=== PATIENT | female | born 1940 | race Caucasian/White ===

== ENCOUNTER 2017-05-25 14:45 | Outpatient (RCR) | payer MEDICARE, BC ==
--- NOTE | 2017-04-30 16:50 | PT INITIAL EVALUATION ---
MEDICAL DIAGNOSIS: Right Glenohumeral Joint Instability, Right Rotator Cuff Tear TREATMENT DIAGNOSIS: Right Glenohumeral Joint Instability, Right Rotator Cuff Tear DATE OF ONSET: 04/30/17 SUBJECTIVE: Vera is a 76 year-old female representing to physical therapy following new orders and diagnosis for her R shoulder pain and frequent subluxation. Vera has been seen in the past concerning her hip pain, and with her diagnosis of cancer. Currently pt reports that her pain is pretty low in the shoulder rated at 3-4/10, but when her shoulder is out of place reaches up to a 8/10. Pain is increased with overhead reaching to get heavy objects, but comes and goes. Pt lives with her family and is dependent on their availability for transportation to and from PT sessions. REHAB PROBLEM LIST: Increased Pain Decreased ROM Decreased Strength Decreased Function Decreased ADL's PREVIOUS MEDICAL HISTORY: Hx of Parkinson's Disease, Hx of Breast CA, See EMR OCCUPATION: Retired OBJECTIVE: R Shoulder slightly anteriorly displaced Posture: Rounded shoulders posture with significant thoracic kyphosis. ROM: Shoulder AROM (R, L): Flexion: 123, 125, abd: 160, 150, ER: 85, 80, IR: T4 with pain on anterior shoulder, T12 Strength: MMT B Shoulders (R, L) all measures out of 5: Flexion: 5, 5 ext: 4, 5 , abd: 4, 5, ER: 4, 4, IR: 4+, 5 Palpation: Pt is tender to palpation on the anterior aspect of the GH joint as well as in the RTC musculature and tendon insertions. Pt also has a palpable nodule on the posterior aspect of rib 10 located approximately 1 inch from the spine. Nodule is hard and tender to touch with movable swelling surrounding. Pt reports that she doesn't know how long it has been there but did fall a while ago and possibly broke a rib. She reports pain occasionally wakes her up at night from the nodule. Sensation: Sensation intact to light touch in B UE Special Tests: Neer's (-), Empty can (+) for pain on R, IR Lift off (-), Anterior apprehension (+) on R. Mobility: Pt currently never leaves home without assistance from family members. Gait: Unsteady gait with slow bernadette and decreased foot clearance, frequent UE reaching for support and stability Other Objective Findings: Pt has difficulty dressing secondary to chest tightness and postural positioning. ASSESSMENT: Pt shows signs and symptoms consistent with R frequent anterior subluxation resulting in RTC pathology as well as shoulder instability. Physical therapy is indicated to address the above listed deficits to improve pt functional ability to perform ADL's. Short Term Goals In 3 weeks pt will have <1 episode per week of anterior shoulder subluxation with ADL's for decreased pain and improved function with ADL's. In 3 weeks pt will increase R shoulder ROM to equal to that of the contralateral limb for improved function with ADL's. In 6 weeks pt will increase R shoulder strength to equal to that of the contralateral limb for improved function with ADL's. In 6 weeks pt will have no episodes of subluxation for decreased pain and improved function with ADL's. Patient's Goals Decrease shoulder pain and improve function. PLAN: Patient to be seen for Manual Therapy/STM/MET Strengthening/condition Ice/Heat Range of Motion Spinal Stabilization Ultrasound Stretching Iontophoresis Neuromuscular Re-ed Electrical Stim Posture/Body mechanics Gait Trg/Balance Trg Biofeedback Home Exercise Program Mech./Manual Traction Therapeutic Activities 2x/Week for 6 Weeks If you have any questions, comments, or concerns about this report or plan, please contact me at . Than you, Fidelia Best, PT, DPT, CLT DEISY
[~2017-05-25 14:45] MED LIST: ANAS1TAB34 PO; ATOR20TA22 PO; BENA1TAB58 PO; CARB-127 PO; CEF300 PO; CHOL10005 PO; DEN120I SUBQ; DONE5TAB74 PO; FOLI-68 PO; IOPAMIDOL 76% 75 ML INFUS BTL 75 ML ONE; MEMA10TA3 PO; NAPR220C12 PO; NS 0.9% 50 ML VIAL 50 ML ONE; ONDA8TAB98 PO; OXYC-373 PO; OXYC-823 PO; POTA20TA10 PO; PRAM0.7512 PO; PROC10TA95 PO; TRAM-420 PO; [UNRECOGNIZED DRUG - CODE] PO
--- NOTE | 2017-05-26 15:34 | PT PLAN OF CARE ---
Physician: Nickolas Hamm MD Patient is being seen: 2x/Week Therapist: Fidelia Best, PT, DPT, CLT Medical Diagnosis: Right Glenohumeral Joint Instability, Right Rotator Cuff Tear Treatment Diagnosis: Right Glenohumeral Joint Instability, Right Rotator Cuff Tear Date of Onset: 04/30/17 Date of Initial Evaluation: 04/30/17 Date patient was last seen: 05/25/17 Number of treatments: 12 Number of cancellations/No shows: 2 INTERVENTIONS: Manual Therapy/STM/MET Strengthening/condition Ice/Heat Range of Motion Spinal Stabilization Ultrasound Stretching Iontophoresis Neuromuscular Re-ed Electrical Stim Posture/Body mechanics Gait Trg/Balance Trg Biofeedback Home Exercise Program Mech./Manual Traction Therapeutic Activities GOALS: In 3 weeks pt will have <1 episode per week of anterior shoulder subluxation with ADL's for decreased pain and improved function with ADL's. MET In 3 weeks pt will increase R shoulder ROM to equal to that of the contralateral limb for improved function with ADL's. MET In 6 weeks pt will increase R shoulder strength to equal to that of the contralateral limb for improved function with ADL. MET's. In 6 weeks pt will have no episodes of subluxation for decreased pain and improved function with ADL's. MET PATIENT'S GOAL: Decrease shoulder pain. Status of Patient's Goals: 4/4 MET Patient Compliance: Good Prognosis: Fair Reasons for continuing therapy: Vera is to discharge from physical therapy for her R shoulder at this time secondary to completion of /4 functional goals for her shoulder. Upon discharge pt is to continue with her shoulder HEP to continue to maintain strength and stability while seeking further PT for her R hip and functional mobility with continued oncological treatment. Posture: Rounded shoulders posture with significant thoracic kyphosis. ROM: Shoulder AROM: Flexion, abduction, ER: all full without pain, IR: B T12 with apprehension on R shoulder Strength: MMT B Shoulders (R, L) all measures out of 5: Flexion: 4+, 5 ext: 4 + with apprehension, 5, abd: 5, 5, ER: 4, 4, IR: 4+, 5 3 Finger Pinch Patient Financial Specialist: R 16#, L 13# Sensation: Sensation intact to light touch in B UE Mobility: Pt currently never leaves home without assistance from family members. Gait: Unsteady gait with slow bernadette and decreased foot clearance, frequent UE reaching for support and stability If you have any questions or concerns, please feel free to contact me at [phone]. Thank you, Fidelia Best, PT, DPT, C RAYMONDD
== END 2017-05-25 18:00 | disposition home or self-care (01) ==
LOC: PT 14:45
PROVIDERS: ATTEND Family Medicine Sports Medicine
DX: M75.121 Complete rotator cuff tear or rupture of right shoulder, not specified as traumatic (principal); M75.81 Other shoulder lesions, right shoulder; M25.311 Other instability, right shoulder; C50.919 Malignant neoplasm of unspecified site of unspecified female breast; S43.011A Anterior subluxation of right humerus, initial encounter
CPT/HCPCS: 97110; 97140; 97162; J7050; Q9967

== ENCOUNTER 2017-06-12 14:45 | Outpatient (RCR) | payer MEDICARE, BC ==
--- NOTE | 2017-06-02 17:00 | PT INITIAL EVALUATION ---
MEDICAL DIAGNOSIS: Right Hip Pain, Generalized Weakness TREATMENT DIAGNOSIS: Right Hip Pain, Generalized Weakness DATE OF ONSET: 05/25/17 SUBJECTIVE: Vera is a 76 year-old female presenting to physical therapy following progressive onset of R hip pain. Pain started following spread of metastatic breast cancer to the femur on the R side and maintained throughout radiation treatment and current chemotherapy treatment. Pt reports that pain is pretty consistent rated at 3/10 throughout the day mostly in the posterior lateral hip and groin, with occasional radiation of pain to the knee and below. Pain increases following increased activity to 6/10, as well as increases with prolonged sitting with driving. Pt reports no back pain at this time. Pt is currently undergoing treatment for metastatic breast cancer including chemotherapy as well as has Parkinson's disease. REHAB PROBLEM LIST: Increased Pain Decreased ROM Impaired Bed Mobility Decreased Strength Impaired Transfers Decreased Endurance Decreased Function Decreased ADL's Decreased Mobility Decreased Gait PREVIOUS MEDICAL HISTORY: Hx of Parkinson's Disease & Metastatic Breast CA, See EMR OBJECTIVE: Pt has dystonia throughout the extremities and torso resulting in muscular spasms and constant mobility ballismus Posture: R lateral shift posture with R pelvic rotation, increased thoracic kyphosis ROM: Lumbar Screen: flexion: mod restrictions with pain, ext: full with posterior hip pain, L SB: Full with R groin pain, R SB: full with R posterior hip stretch, Rotation B: full without pain. Hip Screen: flexion: mild restrictions and painful past 90, ext painful with minimal restrictions. Strength: LE MMT: Hip: flexion: L 4+/5, R 4/5 with pain at end, ext: B 4/5 with pn on R side posteriorly, abd: L 4+/5, R 4/5 with pn in posterior hip, add: B 4+/5. Knee: ext: B 4+/5, flexion B 4+/5. Ankle: DF: 4/5 B, PF, B 4+/5 Palpation: Pt is tender to palpation in the R groin and anterior femur. Special Tests: Repeated lumbar motion: flexion/ext/B sidebending: increased pain into the knee R Hip: LANA (-), FADIR (+), Thrust (+), long axis traction (+) pn Mobility: Pt unable to perform SLR secondary to pain and weakness. Gait: Antalgic, ataxic gait with frequent stepping for stability secondary. Wide BERNA, decreased stance phase on R. Other Objective Findings: FOTO Hip: FACT-G: PWB: 03/14, SWB: 22., EWB: , FWB: 04/14, Total: 62.17/108 ASSESSMENT: Pt shows signs and symptoms consistent with generalized weakness of the R hip joint secondary to surgical, and oncological intervention resulting in hypermobility and impingement. Physical therapy is indicated to address the above listed deficits to improve functional mobility and function with ADL's. Short Term Goals In 4 weeks pt will decrease hip pain to 1/10 or less with ADL's for improved functional mobility. In 4 weeks pt will be able to perform a SLR on the R hip without pain or quad lag for increased functional strength for ADL's. In 8 weeks pt will increase hip strength B to 4+/5 or greater with out pain for increase functional mobility. In 8 weeks pt will increase FOTO Hip Score to 34 or greater for improved function with ADL's. In 8 weeks pt will maintain FACT-G score of >60 for maintained functional well being with ongoing oncological care. Patient's Goals Decrease hip pain, improve functional ability PLAN: Patient to be seen for Manual Therapy/STM/MET Strengthening/condition Ice/Heat Range of Motion Spinal Stabilization Ultrasound Stretching Iontophoresis Neuromuscular Re-ed Closed Chain Program Electrical Stim Posture/Body mechanics Gait Trg/Balance Trg Biofeedback Home Exercise Program Mech./Manual Traction Therapeutic Activities Pelvic Floor 1x/Week for 4 Months If you have any questions, comments, or concerns about this report or plan, please contact me at . Thank you, Fidelia Best, PT, DPT, CLT MTDD
[~2017-06-12 14:45] MED LIST changes: -IOPAMIDOL 76% 75 ML INFUS BTL 75 ML ONE; +MAGN100T2 PO; -NS 0.9% 50 ML VIAL 50 ML ONE; +PERT420V IV; +TRAS150V; +UBID100C48 PO
[2017-06-15] MEDS ORDERED: [UNRECOGNIZED DRUG - CODE] PO (10:58)
[2017-06-17] MEDS ORDERED: OXYC-823 PO (13:22)
[2017-06-17] MEDS ORDERED: FOLI-68 PO (13:23)
[2017-06-26] MEDS ORDERED: DICL100G39 TOP (17:18)
[2017-06-26] MEDS ORDERED: PRAM0.7513 PO (17:18)
[2017-06-26] MEDS ORDERED: [UNRECOGNIZED DRUG - CODE] PO (17:19)
== END 2017-06-12 18:00 | disposition home or self-care (01) ==
LOC: PT 14:45
PROVIDERS: ATTEND Nurse Practitioner Family
DX: M25.551 Pain in right hip (principal); M62.81 Muscle weakness (generalized); C79.81 Secondary malignant neoplasm of breast; G20 Parkinson's disease
CPT/HCPCS: 97162

== ENCOUNTER 2017-07-07 10:45 | Outpatient (RCR) | payer MEDICARE, BC ==
--- NOTE | 2017-06-23 10:53 | RADIOLOGY IMAGING REPORT ---
FACILITY: [facility] [place] PATIENT NAME: Vera Tidwell : 1940 MR: [id number] V: [id number] EXAM DATE: ORDERING PHYSICIAN: TOM TOBAR TECHNOLOGIST: Location: [facility] [place] Patient: Vera Tidwell : 1940 Visit/Account:[id number] Date of Sevice: 06/17/2017 CT of the right knee INDICATION: Metastatic breast cancer. Radiation planning. COMPARISON: No prior plain films of the knee. Technique: Axial CT images were obtained through the right knee. Reformatted coronal and sagittal im ages were reviewed. Markers were placed for localization purposes for treatment planning. One of the following dose optimization techniques was utilized in the performance of this exam: Autom ated exposure control; adjustment of the mA and/or kV according to the patient's size; or use of an i terative reconstruction technique. Specific details can be referenced in the facility's radiology C T exam operational policy. FINDINGS: Markers are seen along the anterior margin of the superior pole of patella. Second marker is seen fuentes ng the lateral margin of the distal femoral shaft just above the lateral femoral condyle. No acute fracture is identified. No destructive bone lesion. Along the upper margin field of view, th ere are a few subtle, punctate areas of sclerosis within the medullary space involving the femoral sh aft anterolaterally. Differential must include small areas of osseous metastatic disease. No cortical destruction or periosteal new bone in this region. A suspected bone island is seen within the proxim al tibia. No sclerotic lesion seen within the fibula. With respect to the soft tissues, no fluid collection. No hematoma. No evidence to suggest a knee roby nt effusion. Muscles appear normal in bulk. No focal areas of atrophy. IMPRESSION: 1. Radiopaque markers about the right knee for radiation planning as described above. 2. Suspected small foci of osseous metastatic disease in the upper margin of the [id number] involv ing the femoral shaft. No evidence of bone destruction or pathologic fracture. Report Dictated By: Cliff Rose at 06/19/2017 10:43 AM Report E-Signed By: Cliff Rose at 06/19/2017 10:54 AM WSN:[id number]
[~2017-07-07 10:45] MED LIST changes: +DICL100G39 TOP; +PRAM0.7513 PO
--- NOTE | 2017-07-07 13:31 | RADIOLOGY IMAGING REPORT ---
FACILITY: [facility] PATIENT NAME: Vera Tidwell : 1940 MR: [id number] V: [id number] EXAM DATE: ORDERING PHYSICIAN: TOM TOBAR TECHNOLOGIST: Location: [facility] [place] Patient: Vera Tidwell : 1940 Visit/Account:[id number] Date of Sevice: 07/07/2017 Exam type: TIBIA FIBULA LEFT History: Pain in left tibia and fibula following radiation therapy Comparison: None. Findings: There is no evidence of acute fracture-dislocation involving the left tibia or fibula. No obvious ly tic or blastic bone lesion is seen. No significant arthritic changes are identified at the left knee or left ankle. IMPRESSION: 1. No articular abnormality left tibia fibula seen. If patient's symptoms persist however a bone sc an may be helpful given the clinical history of metastatic breast cancer Report Dictated By: Ella Giullaume MD at 07/07/2017 1:24 PM Report E-Signed By: Ella Guillaume MD at 07/07/2017 1:26 PM WSN:[id number]
[2017-07-08] MEDS ORDERED: FOLI-68 PO (14:18)
[2017-07-08] MEDS ORDERED: ONDA8TAB98 PO (14:18)
[2017-08-02] MEDS ORDERED: PRAM0.7512 PO (18:28)
[2017-08-03] MEDS ORDERED: ACET500T68 PO (14:13)
[2017-08-03] MEDS ORDERED: [UNRECOGNIZED DRUG - CODE] PO (14:41)
[2017-08-30] MEDS ORDERED: IBUP600T22 PO (11:47)
[2017-08-30] MEDS ORDERED: MORP10SO10 PO (11:47)
[2017-08-30] MEDS ORDERED: LIDO700A19 TP (11:47)
[2017-09-04] MEDS ORDERED: MORP10SO10 PO (09:58)
[2017-09-09] MEDS ORDERED: HYDR-4305 PO (15:01)
[2017-09-09] MEDS ORDERED: MORP10SO10 PO (16:37)
== END 2017-09-10 ==
LOC: RAON 10:45
PROVIDERS: ATTEND Radiology Radiation Oncology
DX: Z51.0 Encounter for antineoplastic radiation therapy (principal); C50.912 Malignant neoplasm of unspecified site of left female breast; Z17.0 Estrogen receptor positive status [ER+]; E78.5 Hyperlipidemia, unspecified; I10 Essential (primary) hypertension; G20 Parkinson's disease; E55.9 Vitamin D deficiency, unspecified
CPT/HCPCS: 73590; 73700; 77280; 77290; 77295; 77300; 77334; 77336; 77412; G0463; 82040; 82247; 82310; 82374; 82378; 82435; 82565; 82947; 83735; 84075; 84100; 84132; 84155; 84295; 84450; 84460; 84520; 85027; 86300; 96372; 96413; 96417; 99202; J0897; J7050; J9306; J9355; Q0163

== ENCOUNTER 2017-08-05 12:58 | Outpatient (RCR) | payer MEDICARE, BC ==
[2017-05-25 13:34] VITALS: BP 129/84
--- NOTE | 2017-05-25 15:27 | RADIOLOGY IMAGING REPORT ---
FAC[place] [facility] [place]IENT NAME: Vera Tidwell : 1940 MR: [id number] V: [id number] EXAM DATE: ORDERING PHYSICIAN: TWILA RUBIO TECHNOLOGIST: [place] [facility] [place] Vera Tidwell : 1940 Visit/Account:[id number] Date of Sevice: 05/25/2017 Exam type: HIP RIGHT History: Right hip pain, pain in right groin Comparison: CT chest seven pelvis April 30, 2017. Findings: Diffuse mixed lytic and blastic metastases are seen throughout the visualized bones. Pathologic frac ture through the superior acetabulum on the right is again seen as was present on the prior CT no def inite fracture of the right femoral head or neck is identified. The pubic symphysis appears to be gr ossly intact IMPRESSION: 1. Extensive mixed lytic and blastic metastases throughout the visualized bones Pathologic fracture through the superior acetabulum on the right is reidentified and appear similar t o the prior CT Report Dictated By: Ella Guillaume MD at 05/25/2017 3:21 PM Report E-Signed By: Ella Guillaume MD at 05/25/2017 3:24 PM WSN:ETHAN
--- NOTE | 2017-05-26 18:37 | ONCOLOGY FOLLOW UP NOTE ---
EVENT DATE: May 25, 2017 CHIEF COMPLAINT/REASON FOR VISIT Ms. 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 HISTORY OF PRESENT ILLNESS Vera sam. She originally presented with a two week history of shortness of breath and left chest wall pain. Workup revealed a large left-sided breast mass, significant adenopathy and bone lesions. She had peristernal internal mammary lymph nodes involved as well with disease spreading up towards her neck. Her MRI of the brain in August of 2016 was negative. Her picture was consistent with a neglected ER/NC positive breast cancer, and she started Arimidex during the workup. However, her results surprisingly showed very low levels of ER and positive HER2/maricarmen status. She was not interested in chemotherapy and we switched her immediately to Herceptin and PERJETA. She sought a second opinion at [facility] and they agreed with this plan. Her CA 27-29 and CEA have completely normalized with this therapy. She suffered a fall and hit the right side of her shoulder and body on a doorknob. Initially they thought that the trauma was to the shoulder and that would not explain the rib fullness. However, with imaging this did reveal a hematoma, and I believe she struck this area as well. There could have been underlying fragile bone due to her disease as well. No signs of an abscess and this was not drained. The family had been complaining about more forgetfulness, and so a repeat MRI of the brain was done. Fortunately there was no evidence of intracranial metastases, but we do see some evidence of old stroke. She has a neurologist and I recommend followup with them as scheduled later this month. Also is establishing care with a new primary care provider and can work with her to reduce risk for stroke. No known prior history of arrhythmia. Her recent echocardiogram was excellent with an ejection fraction of 61%. She did have enlargement of the left atria and so could be at risk for atrial fibrillation. Normal rate on exam today. Needs to work with [facility]MCU SPECIALIST regarding uterine prolapse. PAST MEDICAL/SURGICAL HISTORY 1. Parkinsonism. 2. Hyperlipidemia. 3. Hypertension. 4. Vitamin D deficiency. 5. Stage IV breast cancer, poorly differentiated ductal carcinoma with diffuse bony metastases, ER negative, HER2/maricarmen positive. SOCIAL HISTORY Patient has presented with her son and [id number] who both live here in [place]. REVIEW OF SYSTEMS CONSTITUTIONAL: No fevers, chills, signs of infection. Improved energy since starting therapy. HEENT: No headache or visual changes. NEUROLOGIC: Patient does have parkinsonisms with tremor and dyskinesias. This may be slightly worse. Increased problems with memory and this could be related to recent strokes. CARDIOVASCULAR: No chest pain, dyspnea on exertion or edema. History of atrial fibrillation. RESPIRATORY: No shortness of breath, wheeze, cough. GASTROINTESTINAL: No nausea, vomiting. GENITOURINARY: No dysuria or hematuria. MUSCULOSKELETAL: Right rib fullness remains present, but the pain is reduced. She continues to have hip pain which has been a chronic issue and potentially unrelated. GYNECOLOGICAL: History of uterine/vaginal prolapse and follows with [facility]U SPECIALIST. PSYCHIATRIC: No anxiety or depression. The remainder of the 14-point review of systems is otherwise negative. PHYSICAL EXAMINATION VITAL SIGNS: Blood pressure 129/84, pulse 77, respiratory rate 16, temperature 97.2 Fahrenheit, oxygen saturation 91% on room air. Weight 44.5 kg and stable. Pain 7/10, fatigue 7/10. The pain is in her right hip. GENERAL: Stable condition, resting comfortably in the chair. HEENT: Normocephalic, atraumatic. CARDIOVASCULAR: Regular rate and rhythm. MUSCULOSKELETAL: She has pain irregularity of the right rib with the hematoma where she had the fall. She also has chronic right shoulder and right hip pain. LUNGS: Clear. ABDOMEN: Soft and nontender. The remainder of the physical exam is otherwise unremarkable. IMPRESSION AND PLAN Mrs. Tidwell is a very pleasant 76-year-old female with the followin. Metastatic ER/NC negative HER2/maricarmen overexpressed breast cancer. Continue PERJETA and Herceptin indefinitely. With this treatment her tumor markers have normalized. She remains uninterested in chemotherapy. Continue supportive Xgeva. 2. Uterine prolapse. Follow with [facility] SPECIALIST. 3. Parkinsonism on carbidopa/levodopa. 4. Concern for memory loss due to vascular dementia with old stroke seen on the MRI. Should follow up with Neurology and review her prior MRIs. Meeting with her new primary care provider soon to discuss risk reductions. Her blood pressure is good. No major issues with diabetes. I answered all of their many questions today. Billing: Return visit level 4. Total time 30 minutes, counseling time 20. High risk, high complexity. MTDD
[2017-05-27] MEDS: NS(*) 0.9% 100 ML BAG 100 ML IVPB PRN (14:16)
[2017-05-27] MEDS: LIDOCAINE/SOD BICARB 8.4% SYR ID PRN (14:16)
[2017-05-27] MEDS: ACETAMINOPHEN 325 MG TAB PO PRN (14:16)
[2017-05-27] MEDS: diphenhydrAMINE 25 MG CAP PO PRN (14:16)
[2017-06-17 12:07] VITALS: BP 147/97
[2017-06-17] MEDS: NS(*) 0.9% 100 ML BAG 100 ML IVPB PRN (12:41)
[2017-06-17] MEDS: LIDOCAINE/SOD BICARB 8.4% SYR ID PRN (12:41)
[2017-06-17] MEDS: ACETAMINOPHEN 325 MG TAB PO PRN (13:27)
[2017-06-17] MEDS: diphenhydrAMINE 25 MG CAP PO PRN (13:27)
--- NOTE | 2017-06-17 13:40 | ONC Progress Note - NP.Halsey ---
Patient History Date of Service Jun 17, 2017 Reason For Visit/HPI Patient is seen in the clinic today with her son and [id number] for follow- up of her stage IV metastatic breast cancer, HER-2/maricarmen overexpressed. Patient is currently receiving Herceptin and Perjeta cycle 9 day 1 today. Patient followed with radiation oncology regarding increased pain in the right hip and knee. She is scheduled for a CT simulation of the knee today and will start radiation therapy to the right hip. Patient previously had discontinued oxycodone 10 mg ER tablet taken twice daily because her pain was improved. She recently has been on hydrocodone 5/325. Unfortunately her pain is significantly increased and her pain is not under good control at this time. I discussed with her children restarting long-acting oxycodone and using the hydrocodone for breakthrough pain as needed. This was her original plan and seemed to work well for her with good toleration. In addition patient is constipated, without a bowel movement for 2 days. She does have milk of magnesia and MiraLAX at home and will consider taking that this evening if she does not have a bowel movement later today. She was apprehensive regarding any form of laxative because radiation may increase or stimulate the bowels. Patient had a pessary placed approximately 2 weeks ago and is managing the daily insertion without difficulty. She is reporting that she is having increased urinary symptoms during the day up to every hour. Nocturia last night was 2. If symptoms continue she will discuss this with her alpine patroller at the next follow-up scheduled in the near future. White count was not elevated today and patient denies any symptoms suggestive of a urinary tract infection. She continues with physical therapy and has significant improvement of her overall well-being. She does prefer to work with only [employer]. No other concerns today. Problem List (1) Malignant bone pain (2) Pelvic mass in female (3) Stage IV carcinoma of breast (4) HER2-positive carcinoma of breast (5) Breast mass in female Oncology History Patient is a 76-year-old female who originally presented with a two week history of shortness of breath and left chest wall pain. Workup revealed a large left-sided breast mass, significant adenopathy and bone lesions. She had peristernal internal mammary lymph nodes involved as well with disease spreading up towards her neck. Her MRI of the brain in August of 2016 was negative. Her picture was consistent with a neglected ER/UT positive breast cancer, and she started Arimidex during the workup. However, her results surprisingly showed very low levels of ER and positive HER2/maricarmen status. She was not interested in chemotherapy and was switched immediately to Herceptin and PERJETA. She sought a second opinion at [facility] and they agreed with this plan. Patient did receive SBRT to the right hip at [facility]. Her CA 27-29 and CEA have completely normalized with Herceptin and Perjeta treatment. Increased bone pain in the right hip and right knee. Patient will start external beam radiotherapy to the right hip, 15 fractions starting on 2017 and completing on 07/07/2017. Psychosocial History Social History Patient is single, she is a . Her son and [id number] are her care providers. Occupational History She is retired Alcohol History She denies use Smoking History: No Smoking Status: Never Smoker Exposure to Second Hand Smoke?: No Medications and Allergies Active Scripts Folic Acid (FOLIC ACID) 1 Mg Tablet, 1 MG PO QDAY, #30 TAB 6 Refills Prov:RU BRADY [facility], ONC 06/17/17 Oxycodone Hcl (OXYCONTIN) 10 Mg Tab.er.12h, 10 MG PO BID for 30 Days, #60 TAB Prov:RU BRADYP-[facility], ONC 06/17/17 Hydrocodone Bit/Acetaminophen (HYDROCODON-ACETAMINOPHN 10-300) 1 Each Tablet, 1 EACH PO Q6H, #60 TAB Prov:RU BRADY [facility], ONC 06/15/17 Tramadol Hcl (TRAMADOL HCL) 50 Mg Tablet, 50-100 MG PO Q4-6H for PAIN, #120 TAB 1 Refill Prov:RU BRADY [facility], ONC 05/19/17 Ondansetron (ONDANSETRON ODT) 8 Mg Tab.rapdis, 8 MG PO Q8H, #30 TAB 1 Refill Prov:RU BRADY [facility], ONC 03/30/17 Potassium Chloride (Potassium Chloride) 20 Meq Tablet.er, 20 MEQ PO BID for hypokalemia for 30 Days, #60 TAB 6 Refills Prov:RU BRADY [facility], ONC 03/12/17 Reported Medications Pertuzumab (PERJETA) Unknown Strength Vial, IV Q3WK, VIAL 06/01/17 Trastuzumab (Herceptin) Unknown Strength Vial, 1 Q3WK 06/01/17 Magnesium Citrate (MAGNESIUM CITRATE) 100 Mg Tablet, 1 TAB PO DAILY 06/01/17 Ubidecarenone (COQ-10) 100 Mg Capsule, 2 CAP PO DAILY, CAPSULE 06/01/17 Denosumab (XGEVA) 120 Mg/1.7 Ml Vial, 120 MG SUBQ Q4WK, VIAL 11/04/16 Pramipexole Di-Hcl (MIRAPEX) 0.75 Mg Tablet, 1 TAB PO BID 10/23/16 Naproxen Sodium (ALEVE) 220 Mg Capsule, 220 MG PO PRN, CAPSULE 10/23/16 Cholecalciferol (Vitamin D3) (VITAMIN D3) 1,000 Unit Tablet, 1 TAB PO DAILY 10/23/16 Carbidopa/Levodopa (CARBIDOPA-LEVO 25-100 MG ODT) 1 Each Tab.rapdis, 1 EACH PO BID 10/23/16 Atorvastatin Calcium (LIPITOR) 20 Mg Tablet, 1 TAB PO QDAY 10/23/16 Discontinued Reported Medications Folic Acid (FOLIC ACID) 1 Mg Tablet, 1 MG PO QDAY 10/23/16 Allergies: Coded Allergies: amantadine (Verified Allergy, Severe, hallucinations and falling, 06/01/17) Sulfa (Sulfonamide Antibiotics) (Verified Allergy, Unknown, 10/23/16) Review of System/Physical Exam Review of Systems All Systems Reviewed/Normal: Yes, Except as Noted Hematologic: Positive for Fatigue, Positive for Weakness Musculoskeletal: Positive for Muscle Pain, Positive for Joint Pain, Positive for Bone Pain Physical Exam Vital Signs Temperature: 98.5 Pulse: 84 BP Systolic: 147 BP Diastolic: 97 Respiratory Rate: 16 O2 SAT: 96 O2 Delivery: Height (inches) 59.00 Weight lb: 113 Weight oz: Weight Kg (Rodrigo): 51.354802 Pain: 5 ECOG Score: 2 General: Stable, Well Developed, Well Nourished (she is a very thin petite female), Not In Acute Distress HEENT: No Trauma, No Conjunctivitis, No Icterus, No Mucositis, No Oral Thrush Neck: Supple Lungs: Clear to Auscultation Heart: Regular Rate, Regular Rhythm, No Gallops Abdomen: Soft and Nontender, No Hepatosplenomegaly, No Masses Extremities: No Clubbing, No Edema Lymphadenopathy: No Cervical, No Subclavicular, No Axillary Psychiatric: Mood appears normal, Affect appears normal Skin: No Skin Rashes, No Bruising, No Purpura Diagnostic Studies Diagnostic Studies Laboratory Labs are reviewed with patient today. Laboratory Tests 06/17/17 12:30 Laboratory Tests 06/17/17 12:30: White Blood Count 5.1, Hemoglobin 12.9, Hematocrit 39.7, Platelet Count 312, Neutrophils (%) (Auto) 67.0, Lymphocytes (%) (Auto) 19.6, Neutrophils # (Auto) 3.4, Lymphocytes # (Auto) 1.0, Sodium Level 134, Potassium Level 4.4, Chloride Level 100, Carbon Dioxide Level 26, Blood Urea Nitrogen 25, Creatinine 0.70, Glomerular Filtration Rate Calc > 60.0, Random Glucose 87, Calcium Level 9.1, Phosphorus Level 3.7, Magnesium Level 1.9, Total Bilirubin 0.5, Aspartate Amino Transf (AST/SGOT) 27, Alanine Aminotransferase (ALT/SGPT) 28, Alkaline Phosphatase 80, Total Protein 7.0, Albumin 3.7 Assessment and Plan Assessment & Plan Mrs. Tidwell is a very pleasant 76-year-old female with the followin. Metastatic ER/UT negative HER2/maricarmen overexpressed breast cancer. Continue PERJETA and Herceptin indefinitely. With this treatment her tumor markers have normalized. She remains uninterested in chemotherapy. Continue supportive Xgeva 120mg every 4-6 weeks to coincide with her current treatment schedule. 2. Uterine prolapse. Patient has followed with [facility] and has started use of a pessary. She will follow in the near future. 3. Parkinsonism on carbidopa/levodopa. This remains stable 4. Concern for memory loss due to vascular dementia with old stroke seen on the MRI. Should follow up with Neurology and review her prior MRIs. Meeting with her new primary care provider soon to discuss risk reductions. Patient's blood pressure medication is being managed by primary. It has been elevated in consistently. 5. Pain management of the right hip and right knee. Patient will restart oxycodone 10 mg tab twice a day and we'll use hydrocodone 5/325 as needed for breakthrough pain. Patient will start radiation therapy to the right hip today and will have a CT simulation of the right knee today. 6. Constipation. Patient will use MiraLAX or Senokot as needed for bowel management. Education regarding pain medication causing constipation was discussed and reviewed today. Radiation therapy may cause increased bowel frequency. Plan: Herceptin and Perjeta cycle 9 today. Patient to return in 21 days and follow with provider. Continue Xgeva 120 mg subcutaneous every 4-6 weeks to coincide with current treatment schedule. Folic acid was refilled today per patient. 1 mg daily Oxycodone ER and hydrocodone for breakthrough pain med was reviewed and initiated today. Patient to contact us with questions or concerns. Patient to complete 3 weeks of radiation therapy. I personally spent a total of 30 minutes. Of that 25 minutes was counseling/ coordination of patient's care. See my note above for details. Copies to: ALICE ZAMORANO MD; TWILA RUBIO MD, NANCY J [facility], ONC Jun 17, 2017 13:40
--- NOTE | 2017-06-19 10:59 | RADIOLOGY IMAGING REPORT ---
FACILITY: [facility] PATIENT NAME: Vera Tidwell : 1940 MR: [id number] V: [id number] EXAM DATE: ORDERING PHYSICIAN: TWILA RUBIO TECHNOLOGIST: [facility] Patient: Vera Tidwell : 1940 Visit/Account:[id number] Date of Sevice: 06/17/2017 CT of the right knee INDICATION: Metastatic breast cancer. Radiation planning. COMPARISON: No prior plain films of the knee. Technique: Axial CT images were obtained through the right knee. Reformatted coronal and sagittal im ages were reviewed. Markers were placed for localization purposes for treatment planning. One of the following dose optimization techniques was utilized in the performance of this exam: Autom ated exposure control; adjustment of the mA and/or kV according to the patient's size; or use of an i terative reconstruction technique. Specific details can be referenced in the facility's radiology C T exam operational policy. FINDINGS: Markers are seen along the anterior margin of the superior pole of patella. Second marker is seen fuentes ng the lateral margin of the distal femoral shaft just above the lateral femoral condyle. No acute fracture is identified. No destructive bone lesion. Along the upper margin field of view, th ere are a few subtle, punctate areas of sclerosis within the medullary space involving the femoral sh aft anterolaterally. Differential must include small areas of osseous metastatic disease. No cortical destruction or periosteal new bone in this region. A suspected bone island is seen within the proxim al tibia. No sclerotic lesion seen within the fibula. With respect to the soft tissues, no fluid collection. No hematoma. No evidence to suggest a knee roby nt effusion. Muscles appear normal in bulk. No focal areas of atrophy. IMPRESSION: 1. Radiopaque markers about the right knee for radiation planning as described above. 2. Suspected small foci of osseous metastatic disease in the upper margin of the [id number] involv ing the femoral shaft. No evidence of bone destruction or pathologic fracture. Report Dictated By: Cliff Rose at 06/19/2017 10:43 AM Report E-Signed By: Cliff Rose at 06/19/2017 10:54 AM WSN:[id number]
[2017-07-08 13:27] VITALS: BP 152/99
[2017-07-08] MEDS: NS(*) 0.9% 100 ML BAG 100 ML IVPB PRN (13:30)
[2017-07-08] MEDS: LIDOCAINE/SOD BICARB 8.4% SYR ID PRN (13:50)
[2017-07-08] MEDS: ACETAMINOPHEN 325 MG TAB PO PRN (14:35)
[2017-07-08] MEDS: diphenhydrAMINE 25 MG CAP PO PRN (14:35)
--- NOTE | 2017-07-08 14:46 | ONC Progress Note - NP.Halsey ---
Patient History Date of Service Jul 08, 2017 Reason For Visit/HPI Patient is seen in the clinic today with her son and [id number] for follow- up of her stage IV metastatic breast cancer, HER-2/maricarmen overexpressed. Patient is currently receiving Herceptin and Perjeta cycle 10 day 1 today. Patient recently completed radiation to the right hip significant improvement in her pain. She is indicating that she is having some pain in the left knee and femur. She also reports having symptoms of inability to move her leg. She recently followed with her primary care provider and her Parkinson's meds were decreased. It is thought that may be this is part of the cause that she had immobility. She denies any constipation at this time. She currently is taking Tylenol twice daily and hydrocodone in the middle of the day as needed. She previously was taking oxycodone 10 mg ER tablet twice daily but has discontinued this. She continues to have some ongoing dizziness. She is followed with primary care with the hopes that changing of some medications would help with this. She has not experienced any improvement. She has had a CT of the head and no disease was identified. She occasionally has loose stools and has taken Imodium when needed. Problem List (1) Breast mass in female (2) Stage IV carcinoma of breast (3) HER2-positive carcinoma of breast (4) Pelvic mass in female (5) Malignant bone pain Oncology History Patient is a 76-year-old female who originally presented with a two week history of shortness of breath and left chest wall pain. Workup revealed a large left-sided breast mass, significant adenopathy and bone lesions. She had peristernal internal mammary lymph nodes involved as well with disease spreading up towards her neck. Her MRI of the brain in August of 2016 was negative. Her picture was consistent with a neglected ER/AR positive breast cancer, and she started Arimidex during the workup. However, her results surprisingly showed very low levels of ER and positive HER2/maricarmen status. She was not interested in chemotherapy and was switched immediately to Herceptin and PERJETA. She sought a second opinion at [facility] and they agreed with this plan. Patient did receive SBRT to the right hip at [facility]. Her CA 27-29 and CEA have completely normalized with Herceptin and Perjeta treatment. Increased bone pain in the right hip and right knee. Patient will start external beam radiotherapy to the right hip, 15 fractions starting on 2017 and completing on 07/07/2017. Psychosocial History Social History Patient is single, she is a . Her son and [id number] are her care providers. Occupational History She is retired Alcohol History She denies use Smoking History: No Smoking Status: Never Smoker Exposure to Second Hand Smoke?: No Medications and Allergies Active Scripts Folic Acid (FOLIC ACID) 1 Mg Tablet, 1 MG PO QDAY, #30 TAB 6 Refills Prov:RU BRADY PRODUCTION HARDENER-BC, ONC 07/08/17 Ondansetron (ONDANSETRON ODT) 8 Mg Tab.rapdis, 8 MG PO Q8H, #30 TAB 1 Refill Prov:RU BRADY PRODUCTION HARDENER-BC, ONC 07/08/17 Hydrocodone Bit/Acetaminophen (HYDROCODON-ACETAMINOPHN 10-300) 1 Each Tablet, 0.5 EACH PO Q6H, #60 TAB Prov:ALICE ZAMORANO MD 06/26/17 Diclofenac Sodium 1% Gel (VOLTAREN 1% GEL) 100 Gm Gel..gram., 2 GM TOP QID for 30 Days, #1 TUBE 3 Refills Prov:ALICE ZAMORANO MD 06/26/17 Potassium Chloride (Potassium Chloride) 20 Meq Tablet.er, 20 MEQ PO BID for hypokalemia for 30 Days, #60 TAB 6 Refills Prov:RU BRADY PRODUCTION HARDENER-BC, ONC 03/12/17 Reported Medications Pramipexole Di-Hcl (MIRAPEX ER) 0.75 Mg Tab.er.24h, 0.75 MG PO QDAY 06/26/17 Pertuzumab (PERJETA) Unknown Strength Vial, IV Q3WK, VIAL 06/01/17 Trastuzumab (Herceptin) Unknown Strength Vial, 1 Q3WK 06/01/17 Magnesium Citrate (MAGNESIUM CITRATE) 100 Mg Tablet, 1 TAB PO DAILY 06/01/17 Ubidecarenone (COQ-10) 100 Mg Capsule, 2 CAP PO DAILY, CAPSULE 06/01/17 Denosumab (XGEVA) 120 Mg/1.7 Ml Vial, 120 MG SUBQ Q4WK, VIAL 11/04/16 Naproxen Sodium (ALEVE) 220 Mg Capsule, 220 MG PO PRN, CAPSULE 10/23/16 Cholecalciferol (Vitamin D3) (VITAMIN D3) 1,000 Unit Tablet, 1 TAB PO DAILY 10/23/16 Carbidopa/Levodopa (CARBIDOPA-LEVO 25-100 MG ODT) 1 Each Tab.rapdis, 1 EACH PO BID 10/23/16 Atorvastatin Calcium (LIPITOR) 20 Mg Tablet, 1 TAB PO QDAY 10/23/16 Allergies: Coded Allergies: amantadine (Verified Allergy, Severe, hallucinations and falling, 06/01/17) Sulfa (Sulfonamide Antibiotics) (Verified Allergy, Unknown, 10/23/16) Review of System/Physical Exam Review of Systems All Systems Reviewed/Normal: Yes, Except as Noted Respiratory: Positive for Shortness of Breath (patient is on oxygen) Hematologic: Positive for Fatigue, Positive for Weakness Musculoskeletal: Positive for Muscle Pain, Positive for Bone Pain Psychiatric: Other (both son and [id number] have discussed end-of-life care with patient. Patient has received information from primary care provider but has not completed the form. She has not made final decisions.) Physical Exam Vital Signs Temperature: 97.7 Pulse: 84 BP Systolic: 152 BP Diastolic: 99 Respiratory Rate: 14 O2 SAT: 95 O2 Delivery: Height (inches) 59.00 Weight lb: 113 Weight oz: Weight Kg (Rodrigo): [id number] Pain: 8 ECOG Score: 2 General: Stable, Well Developed, Well Nourished (patient is very thin), Not In Acute Distress HEENT: No Trauma Neck: Supple Lungs: Clear to Auscultation Heart: Regular Rate, Regular Rhythm, No Gallops Abdomen: Soft and Nontender, No Hepatosplenomegaly, No Masses, Other (bowel sounds are active) Lymphadenopathy: No Cervical, No Subclavicular Psychiatric: Mood appears normal, Affect appears normal Skin: No Skin Rashes, No Bruising, No Purpura Diagnostic Studies Diagnostic Studies Laboratory Item Value Date Time Carcinoembryonic Antigen 1.4 ng/mL 05/27/17 1346 CA 27-29 Antigen Serial Monitoring 11.1 U/mL 05/27/17 1346 Carcinoembryonic Antigen 1.6 ng/mL 06/17/17 1230 CA 27-29 Antigen Serial Monitoring 14.0 U/mL 06/17/17 1230 Laboratory Tests 07/08/17 13:40 Laboratory Tests 06/17/17 12:30: Phosphorus Level 3.7, Magnesium Level 1.9 07/08/17 13:40: White Blood Count 5.8, Hemoglobin 13.1, Hematocrit 39.6, Platelet Count 341, Neutrophils (%) (Auto) 72.4, Lymphocytes (%) (Auto) 14.2, Neutrophils # (Auto) 4.2, Lymphocytes # (Auto) 0.8, Sodium Level 141, Potassium Level 4.4, Chloride Level 103, Carbon Dioxide Level 28, Blood Urea Nitrogen 27, Creatinine 0.70, Glomerular Filtration Rate Calc > 60.0, Random Glucose 81, Calcium Level 9.1, Total Bilirubin 0.5, Aspartate Amino Transf (AST/SGOT) 33, Alanine Aminotransferase (ALT/SGPT) 36, Alkaline Phosphatase 76, Total Protein 7.5, Albumin 4.2 Assessment and Plan Assessment & Plan Mrs. Tidwell is a very pleasant 76-year-old female with the followin. Metastatic ER/AR negative HER2/maricarmen overexpressed breast cancer. Continue PERJETA and Herceptin indefinitely. With this treatment her tumor markers have normalized. She remains uninterested in chemotherapy. Continue supportive Xgeva 120mg every 4-6 weeks to coincide with her current treatment schedule. Patient recently completed radiation therapy to the right hip and had significant improvement in her pain. Tumor markers were slightly elevated from previous. Today's labs are currently pending. We will continue to monitor as her tumor markers could decrease now that she is completed radiation therapy. 2. Uterine prolapse. Patient has followed with DI[facility]IT[facility] ASSISTANT and has started use of a pessary. She will follow in the near future. 3. Parkinsonism on carbidopa/levodopa. This remains stable. Her doses been reduced by primary care provider 4. Concern for memory loss due to vascular dementia with old stroke seen on the MRI. Should follow up with Neurology and review her prior MRIs. Patient's blood pressure medication is being managed by primary. 5. Pain management of the right hip and right knee. Patient is currently on Tylenol twice daily and hydrocodone once daily. If pain increases she will restart oxycodone 10 mg tab twice a day and we'll use hydrocodone 5/325 as needed for breakthrough pain. Patient completed radiation therapy to the right hip and had significant response as far as decreased pain in this area. Patient is reporting some discomfort in the left upper by an knee. CT of the tibia and fibula left was completed and is unremarkable. If symptoms continue a bone scan nuclear med, may be indicated. 6. Constipation. Patient will use MiraLAX or Senokot as needed for bowel management. Education regarding pain medication causing constipation was discussed and reviewed today. Radiation therapy may cause increased bowel frequency. Patient actually experienced occasional episodes of diarrhea and so has held MiraLAX at this time and will take Imodium if needed. Plan: Herceptin and Perjeta cycle 10 today. Patient to return in 21 days and follow with provider. Continue Xgeva 120 mg subcutaneous every 4-6 weeks to coincide with current treatment schedule. Folic acid was refilled today per patient. 1 mg daily Patient to contact us with questions or concerns. I personally spent a total of 30 minutes. Of that 20 minutes was counseling/ coordination of patient's care. See my note above for details. Copies to: ALICE ZAMORANO MD, NANCY J PRODUCTION HARDENER-BC, ONC Jul 08, 2017 14:46
[2017-07-08 16:19] VITALS: BP 156/90
[2017-08-03 13:57] VITALS: BP 169/80
[2017-08-03 14:04] LABS: PLATELET COUNT, AUTOMATED 335 K/uL (150-450)
--- NOTE | 2017-08-04 17:32 | RADIOLOGY IMAGING REPORT ---
FACILITY: [facility] PATIENT NAME: TAMIKO AREVALO : [id number] MR: [id number] V: [id number] EXAM DATE: ORDERING PHYSICIAN: TWILA RUBIO TECHNOLOGIST: Thee Wright EXAMINATION:TWO-DIMENSIONAL ECHOCARDIOGRAPH REASON:CHEMO 2D Measurements (normal values in centimeters) LV endLV endRV endVent.LV PostAorticLeftPercent DiastolicSystolicDiastolicSeptumWallRootAtriumShortening (3.5-5.7)(0.9-2.6)(0.6-1.1)(0.6-1.1)(2.0-3.7)(1.9-4.0)(25-35%) [id number]% STROKE VOLUME: 53ml ESTIMATED EJECTION FRACTION:60% PARASTERNAL LONG AXIS: Overall left ventricular systolic function appears to be normal. No specific wall motion abnormalities are noted. Left atrium appears to be mildly enlarged. Right ventricle is the upper range of normal in size. Color examination of the valves reveals some aortic insufficiency as well as some mitral & tricuspid insufficiency present. PARASTERNAL SHORT AXIS: Again overall left ventricular function appears to be within normal ranges. Right ventricle is the upper range of normal in size. Aortic valve is trileaflet in configuration with minimal aortic sclerosis but no stenosis. There is some aortic insufficiency present. APICAL FOUR AND TWO CHAMBER: Normal left ventricular ejection fraction. Aortic valve & mitral valve area both calculate within normal ranges at 2.1 & 3.1cm2 respectively. The tricuspid regurgitation Vmax measured 3.72m/sec with an estimated right atrial pressure of 3mm Hg giving a total right ventricular pressure of 58mm Hg. Left atrial volume is mildly increased at 31.2ml/m2. Right atrial volume is measured within normal ranges at 23ml/m2. There is a mild amount of tricuspid insufficiency present & a mild amount of mitral insufficiency present. SUBCOSTAL VIEW: No pericardial effusion was noted. No atrioseptal or ventriculoseptal defects were appreciated. Left ventricular Strain was done which showed no wall motion abnormalities but some decreased muscle Strain on the anterior wall of the left ventricle. This is the first Strain measurements that have been done on her. Doppler examination of the mitral valve in diastole does reveal the A wave > E wave. The aortic insufficiency pressure half time is approximately 250ms indicating moderate aortic insufficiency present. IVC is normal in size. OVERALL IMPRESSION: 1. Normal left ventricular ejection fraction of approximately 60% with a Grade 1/4 decrease in diastolic function. 2. Borderline to mild enlargement of the right ventricle & mild enlargement of the left atrium. The other chamber sizes are normal. 3. A trileaflet aortic valve with mild aortic sclerosis & a moderate amount of aortic insufficiency. No stenosis of this valve was noted. 4. A mild to possibly borderline moderate amount of mitral insufficiency with no mitral stenosis. 5. Mild amount of tricuspid insufficiency with estimated right ventricular systolic pressures of 58mm Hg which does include an estimated right atrial pressure of 3mm Hg indicating moderate to borderline severe pulmonary hypertension & increased right ventricular systolic pressures. 6. In comparison to the examination done on 04/17/17, the only significant change has been an increase in the right ventricular pressures. The right ventricle appears to contract normally & has a normal TAPSE measurement of 1.9. 7. Strain measurements were done for the first time which showed some decreased Strain along the anterior wall & the inferior wall. No wall motion abnormalities were noted, specifically no akinesis. The inferior wall Strain measurements were approximately -10. The anterior basal measurement was -8. We will use these Strain measurements in further echocardiographs if they are needed to assist in the assessment of the left ventricular function. Dictated by: Brittany Curry M.D. on 08/04/2017 at 10:43 Transcribed by: ZARINA on 08/04/2017 at 12:46 Approved by: Brittany Curry M.D. on 08/04/2017 at 17:31 [facility]
--- NOTE | 2017-08-04 19:04 | ONCOLOGY FOLLOW UP NOTE ---
EVENT DATE: August 03, 2017 CHIEF COMPLAINT/REASON FOR VISIT Mrs. 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 HISTORY OF PRESENT ILLNESS Vera sam. She originally presented with a two-week history of shortness of breath and left chest wall pain. Workup revealed a large left-sided breast mass, significant adenopathy and bone lesions. She had peristernal internal mammary lymph nodes as well as disease spreading up towards her neck. MRI of the brain was negative in August 2016. Her picture was consistent with a neglected ER/MI positive breast cancer and so we started Arimidex immediately. However, her surprising results showed very low levels of ER and positive HER2/ maricarmen status. She was not interested in chemotherapy and began Herceptin and PERJETA. Arimidex was immediately stopped. She sought a second opinion at [facility] and they agreed with this plan. Ms. Tidwell continues to have issues with forgetfulness. We had an MRI of the brain that was done which showed no intracranial metastases, but do see some evidence of old stroke. She has worked with Dr. Aparicio, her primary care provider to improve her home medication list and this has been helpful. Her biggest complaint today is a stuttering gait which I suspect is due to her Parkinson's disease. She may need to increase her carbidopa/levodopa and Dr. Aparicio is working on this dose. Her echocardiogram did show enlarged atria making her at risk for atrial fibrillation, but she has no known history of AFib. She has significant pain rated 7/10, but avoids her pain medication. We have recommended physical therapy, but she has not kept followup for this due to her multiple medical appointments. I would like her to establish care with Physical Therapy, and I feel this is extremely important. PAST MEDICAL/SURGICAL HISTORY 1. Parkinsonism. 2. Hyperlipidemia. 3. Hypertension. 4. Vitamin D deficiency. 5. Stage IV breast cancer, poorly differentiated ductal carcinoma with diffuse bony metastases, ER negative, HER2/mraicarmen positive. SOCIAL HISTORY Patient has presented with her son and [id number]-[id number] who both live here in [place]. REVIEW OF SYSTEMS CONSTITUTIONAL: No fevers, chills, signs of infection. HEENT: No headache or visual changes. NEUROLOGIC: Patient does have Parkinson's disease with tremors and dyskinesia. She feels that her gait is worse. CARDIOVASCULAR: No chest pain, dyspnea on exertion or edema. No known history of atrial fibrillation, but could be at risk with the enlarged atria. RESPIRATORY: No shortness of breath, wheeze, cough. GASTROINTESTINAL: No nausea, vomiting. GENITOURINARY: No dysuria or hematuria. MUSCULOSKELETAL: Positive right hip and shoulder pain. GYNECOLOGICAL: History of uterine prolapse. PSYCHIATRIC: No anxiety or depression. The remainder of the 14-point review of systems is otherwise negative. PHYSICAL EXAMINATION VITAL SIGNS: Blood pressure 168/80, pulse 76, respiratory rate 14, temperature 96.8 Fahrenheit, oxygen saturation 94% on room air. Weight 46.6 kg, which is slightly up. Pain 7/10, fatigue moderate. GENERAL: In stable condition, resting comfortably in the chair. High fall risk. CARDIOVASCULAR: Regular rate and rhythm. ABDOMEN: Soft. EXTREMITIES: No clubbing, cyanosis or significant edema. NEUROLOGIC: Gait not assessed today due to amount of time spent in counseling and coordination of care. IMPRESSION AND PLAN Mrs. Tidwell is a very pleasant 76-year-old female with the followin. Metastatic ER/MI negative HER2/maricarmen overexpressed breast cancer. I recommend that she continue PERJETA and Herceptin indefinitely as her tumor markers have normalized. She remains uninterested in chemotherapy. We will continue the supportive Xgeva, but will eventually need to back off on its frequency. 2. Parkinson's disease on carbidopa/levodopa. Appreciate the care by Dr. Aparicio with management of her dosing. I did advise that over time I do expect her dose to slowly go up. 3. Memory loss. Highly concerning for vascular dementia. Her blood pressure has been improved at recent visits, but was elevated today. She is concerned that she dropped her pill box and may not have taken all of her medications today, which could explain the isolated elevated blood pressure. 4. Goals of care: We discussed quality of life and I feel she needs physical therapy and to take her medications including pain medications regularly. I would like to continue with her successful anti-HER2 dual therapy. She agrees with this after discussion, as does the family. We will continue to see her monthly on therapy. Billing: Return visit level 5. Total time 45 minutes, counseling time 30. High risk, high complexity. MTDD
[~2017-08-05] VITALS: Ht 149.9 cm; Wt 46.6 kg
[~2017-08-05 12:58] MED LIST changes: +ACET500T68 PO; +DENOSUMAB 120 MG/1.7 ML VIAL SUBQ ONE; +DEXTROSE 5%(*) 100 ML BAG 100 ML IVPB PRN; +NS 0.9% IVPB ONE; +PERTUZUMAB IVPB ONE; +TRASTUZUMAB IVPB ONE
[2017-08-05 13:04] VITALS: BP 135/77
[2017-08-05] MEDS: ACETAMINOPHEN 325 MG TAB PO PRN (13:31)
[2017-08-05] MEDS: diphenhydrAMINE 25 MG CAP PO PRN (13:31)
[2017-08-05] MEDS ORDERED: NS 0.9% IVPB ONE ×2 (15:30→16:00)
[2017-08-05] MEDS ORDERED: PERTUZUMAB IVPB ONE (15:30)
[2017-08-05] MEDS ORDERED: TRASTUZUMAB IVPB ONE (16:00)
[2017-08-05] MEDS ORDERED: DENOSUMAB 120 MG/1.7 ML VIAL SUBQ PRN (16:25)
[2017-08-05 16:38] VITALS: BP 131/77
== END 2017-08-20 ==
LOC: ONC 12:58
PROVIDERS: ATTEND Internal Medicine
DX: Z51.11 Encounter for antineoplastic chemotherapy (principal); C50.912 Malignant neoplasm of unspecified site of left female breast; C79.51 Secondary malignant neoplasm of bone; R41.3 Other amnesia; N81.4 Uterovaginal prolapse, unspecified; G20 Parkinson's disease; E78.5 Hyperlipidemia, unspecified; I10 Essential (primary) hypertension; E55.9 Vitamin D deficiency, unspecified; Z85.3 Personal history of malignant neoplasm of breast; I48.2 Chronic atrial fibrillation; M25.551 Pain in right hip; M25.511 Pain in right shoulder; I27.20 Pulmonary hypertension, unspecified
CPT/HCPCS: 36415; 73502; 82378; 85025; 85027; 86300; 93306; 96372; 96413; 96417; A9270; G0463; J0897; J7050; J9306; J9355; Q0163; 82040; 82247; 82310; 82374; 82435; 82565; 82947; 83735; 84075; 84100; 84132; 84155; 84295; 84450; 84460; 84520; 99212

== ENCOUNTER 2017-08-26 17:53 | Inpatient (IN) | payer MEDICARE, BC ==
[~2017-08-26] VITALS: Ht 149.9 cm; Wt 45.4 kg
[~2017-08-26 17:53] MED LIST changes: -DENOSUMAB 120 MG/1.7 ML VIAL SUBQ ONE; -DEXTROSE 5%(*) 100 ML BAG 100 ML IVPB PRN; -NS 0.9% IVPB ONE; -PERTUZUMAB IVPB ONE; -TRASTUZUMAB IVPB ONE
--- NOTE | 2017-08-26 18:30 | ER Report ---
History and Physical Time Seen By MD: 18:29 Hx. of Stated Complaint: PATIENTS FAMILY REPORTS THAT SHE IS HAVING WORSENING PAIN FROM HER CANCER. FAMILY REPORTS THAT SHE HAS ALSO HAD A COUPLE OF FALLS RECENTLY. HPI/ROS CHIEF COMPLAINT: hip pain, bone pain from cancer HISTORY OF PRESENT ILLNESS: This is a 77 year old female. She has had two falls the last few days. Yesterday, fell backward when she lost her balance, but fell into the dog bed. Onto the right side. Did not hit head. No back or neck pain. She fell today while walking to the TV while using a cane. Fell onto right side. Has had bone pain from metastatic breast cancer diffusely to bone and is seeing Dr. Rubio at the cancer center. Dr. Zamorano is her primary doctor. She has been taking hydrocodone 10, 2 tablets every 4 hours or so for pain, not really helping since her fall and increased pain. Normal bowels and no trouble with urination the last few days. No report or confusion. No headaches or vision changes today. Allergies: Coded Allergies: amantadine (Verified Allergy, Severe, hallucinations and falling, 06/01/17) Sulfa (Sulfonamide Antibiotics) (Verified Allergy, Unknown, 10/23/16) Home Meds Active Scripts Hydrocodone Bit/Acetaminophen (HYDROCODON-ACETAMINOPHN 10-300) 1 Each Tablet, 1- 2 EACH PO Q4H, #90 TAB Prov:TWILA RUBIO MD 08/03/17 Folic Acid (FOLIC ACID) 1 Mg Tablet, 1 MG PO QDAY, #30 TAB 6 Refills Prov:RU BRADY-BC, ONC 07/08/17 Diclofenac Sodium 1% Gel (VOLTAREN 1% GEL) 100 Gm Gel..gram., 2 GM TOP QID for 30 Days, #1 TUBE 3 Refills Prov:ALICE ZAMORANO MD 06/26/17 Potassium Chloride (Potassium Chloride) 20 Meq Tablet.er, 20 MEQ PO BID for hypokalemia for 30 Days, #60 TAB 6 Refills Prov:RU BRADYP-BC, ONC 03/12/17 Reported Medications Acetaminophen (TYLENOL EXTRA STRENGTH) 500 Mg Tablet, 1000 MG PO BID, TAB 08/03/17 Pramipexole Di-Hcl (MIRAPEX) 0.75 Mg Tablet, 0.75 MG PO BID 08/02/17 Pertuzumab (PERJETA) Unknown Strength Vial, IV Q3WK, VIAL 06/01/17 Trastuzumab (Herceptin) Unknown Strength Vial, 1 Q3WK 06/01/17 Magnesium Citrate (MAGNESIUM CITRATE) 100 Mg Tablet, 1 TAB PO DAILY 06/01/17 Ubidecarenone (COQ-10) 100 Mg Capsule, 2 CAP PO DAILY, CAPSULE 06/01/17 Denosumab (XGEVA) 120 Mg/1.7 Ml Vial, 120 MG SUBQ Q4WK, VIAL 11/04/16 Cholecalciferol (Vitamin D3) (VITAMIN D3) 1,000 Unit Tablet, 1 TAB PO DAILY 10/23/16 Carbidopa/Levodopa (CARBIDOPA-LEVO 25-100 MG ODT) 1 Each Tab.rapdis, 1 EACH PO TID 10/23/16 Discontinued Reported Medications Naproxen Sodium (ALEVE) 220 Mg Capsule, 220 MG PO PRN, CAPSULE 10/23/16 Reviewed Nurses Notes: Yes Hx Smoking: No Smoking Status: Never Smoker Exposure to Second Hand Smoke?: No Hx Substance Use Disorder: No Hx Alcohol Use: No Constitutional Vital Sign - Last 24 Hours 08/26/17 08/26/17 08/26/17 08/26/17 18:25 18:45 19:00 19:15 Temp 98.0 Pulse 82 73 73 69 Resp 24 B/P (MAP) 178/92 158/93 (114) Pulse Ox 99 97 98 O2 Delivery Room Air 08/26/17 08/26/17 08/26/17 08/26/17 19:30 19:45 20:15 20:30 Pulse 91 75 77 72 Resp 14 B/P (MAP) 191/104 (133) 140/88 (105) 136/94 (108) Pulse Ox 96 97 99 93 O2 Delivery Room Air O2 Flow Rate 3 08/26/17 08/26/17 08/26/17 08/26/17 20:45 21:00 21:15 21:30 Pulse 69 69 72 74 B/P (MAP) 128/72 (90) 150/82 (104) Pulse Ox 94 94 93 97 08/26/17 21:45 Pulse 73 Pulse Ox 96 Physical Exam General Appearance: The patient is alert. Acute distress with movement of the hip on the right side. Eyes: Pupils are equal, round. No pallor, injection or icterus. ENT: Mucous membranes are moist. Normal oral mucosa. Posterior oropharynx is normal. Neck: Supple and non tender. Respiratory: Lungs are clear to auscultation. Cardiovascular: Regular rate and rhythm. No murmurs, gallops or rubs. Normal capillary refill. Gastrointestinal: Abdomen is soft and non tender. Normal active bowel sounds. Neurological: Alert and oriented x3. She has normal sensation in the leg. Skin: Warm and dry. No rashes. Musculoskeletal: Pain with palpation throughout the right hip, worse anterior area. Pain worsens with movement. Some pain with palpation over the right shoulder as well and with movement, this is diffuse pain. Not able to elicit pain with palpation of the rest of the extremities, ribs, trunk. No tenderness in palpation of the cervical, thoracic and lumbar spine. DIFFERENTIAL DIAGNOSIS: After history and physical exam, differential diagnosis was considered for patient with bone pain from metastatic breast cancer, 2 falls recently, now with pain in the right hip and right shoulder that is concerning for possible fracture. Medical Decision Making EKG/Imaging Imaging INDICATION: Hip and shoulder pain. Fall. DATE: 08/26/2017 7:05 PM TECHNIQUE: SHOULDER MIN 2 VIEWS RIGHT COMPARISON: None FINDINGS: The humeral head articulates normally with the glenoid. The coraco- and acromioclavicular distances are normal. No evidence of fracture or dislocation. Mild glenohumeral and moderate acromioclavicular degenerative findings. There are multiple old right-sided rib fractures. IMPRESSION: 1. No fracture or dislocation at the right shoulder. 2. Mild glenohumeral and moderate acromioclavicular degenerative change. 3. Multiple old right-sided rib fractures. Report Dictated By: Sommer Rodriguez MD at 08/26/2017 8:05 PM INDICATION: metastatic cancer, hip and shoulder pain, fall. DATE: 08/26/2017 8:06 PM. TECHNIQUE: HIP RIGHT COMPARISON: Hip radiographs of May 25, 2017. FINDINGS: Deformation of the right femoral head has progressed from the comparison, and the superior acetabular fragment on the right is more displaced than on the prior study. There is [id number] articulation at the right hip, progressed since prior. Degenerative findings are severe within the incompletely imaged lumbar spine. Numerous sclerotic metastases or more conspicuous on the prior study. IMPRESSION: Progressive deformation of the right femoral head, joint space loss, and displacement of a fragment at the right acetabular roof since the comparison. Report Dictated By: Sommer Rodriguez MD at 08/26/2017 8:06 PM PELVIS W/O CONTRAST Indication: Right hip fracture Comparison: Post radiograph 08/26/2017 Technique: CT from the iliac crests to the pubic symphysis was obtained without contrast. One of the following dose optimization techniques was utilized in the performance of this exam: automated exposure control; adjustment of the mA and/ or kV according to the patient's size; or use of an iterative reconstruction technique. Specific details can be referenced in the facility's radiology CT exam operational policy. Findings: There is abnormal sclerotic changes consistent with metastatic disease throughout the visualized portions of the lumbar spine, bones the pelvis , and proximal right left femur. Minimally displaced fracture of the anterior and posterior rim of the right acetabulum is seen. The right femoral head, femoral neck, and proximal femur are intact. Left proximal femur is normal. The right and left superior and inferior pubic rami are intact. Right and left iliac crests are intact. The sacroiliac joints demonstrate normal alignment. Sacral jeanette is unremarkable. Soft tissues demonstrate a hematoma adjacent to the right hip. Urinary bladder is normal. There is a pessary ring in the vagina. IMPRESSION: 1. Minimally displaced fracture of the superior acetabulum at the anterior and posterior rim of the right acetabulum. This is slightly increased compared to prior CT abdomen and pelvis dated 04/30/2017. Patient previous CT demonstrates a fracture at the same site of the anterior and posterior rim of the pelvis. 2. Right femoral head is intact. 3. Sclerotic lesions throughout all bones, consistent with metastatic disease. These has history of breast cancer. This was called by Dr. Gregorio to ABHIJIT FINCH on 08/26/2017 8:31 PM Report Dictated By: Edwin Gregorio at 08/26/2017 8:31 PM ED Course/Re-evaluation Clinical Indication for ER IV: IV Access ED Course We went ahead and started an IV to provide some pain control. Initially gave a dose of 2 mg of Dilaudid IV, considering her use of hydrocodone is likely given her tolerance to opioids. This did help the pain and did make her a little bit altered. X-rays were done and did show what appears to be a fracture of the right hip. CT scan was ordered. Discussion with radiology reveals that she actually has had a fracture in the hip recently on CTs from as far back as February and again on CT in April. This fracture does look like it has worsened, likely due to the fall that she has. Diffuse bony metastasis from her cancer are present as well. Dose of Dilaudid 1 mg IV was given to help with recurring pain. I called and reviewed the results of the CT and x-ray with Dr. Blas, orthopedic surgery, and also talked to Dr. Bailey, hospitalist. We will go and admit her to [facility]. Based on her situation with breast cancer metastatic to the bone, there is likely no other intervention that we'll be able to be done, specifically considering joint replacement as an option. Most likely will need to consider palliative care. Decision to Disposition Date: Aug 26, 2017 Decision to Disposition Time: 21:54 Depart Departure Latest Vital Signs Vital Signs Date Time Temp Pulse Resp B/P (MAP) Pulse Ox O2 Delivery O2 Flow Rate FiO2 08/26/17 21:45 73 96 08/26/17 21:30 150/82 (104) 08/26/17 20:15 14 Room Air 3 08/26/17 18:25 98.0 Impression: Primary Impression: Pathologic acetabular fracture Additional Impressions: HER2-positive carcinoma of breast Malignant bone pain Condition: Condition Unchanged Disposition: Admitted from ER Referrals: ALICE ZAMORANO MD (PCP) Problem Qualifiers Primary Impression: Pathologic acetabular fracture Encounter type: initial encounter Laterality: right Qualified Codes: M84.454A - Pathological fracture, pelvis, initial encounter for fracture ABHIJIT FINCH MD Aug 26, 2017 18:30
[2017-08-26] MEDS ORDERED: HYDROmorphone HCL 2 MG/ML SDV IVP ONE ×2 (19:05→20:50)
--- NOTE | 2017-08-26 20:09 | RADIOLOGY IMAGING REPORT ---
FACILITY: [facility] PATIENT NAME: Vera Tidwell : 1940 MR: [id number] V: [id number] EXAM DATE: ORDERING PHYSICIAN: ABHIJIT FINCH TECHNOLOGIST: Location: [facility] Patient: Vera Tidwell : 1940 Visit/Account:[id number] Date of Sevice: 08/26/2017 INDICATION: Hip and shoulder pain. Fall. DATE: 08/26/2017 7:05 PM TECHNIQUE: SHOULDER MIN 2 VIEWS RIGHT COMPARISON: None FINDINGS: The humeral head articulates normally with the glenoid. The coraco- and acromioclavicular distances are normal. No evidence of fracture or dislocation. Mild glenohumeral and moderate acrom ioclavicular degenerative findings. There are multiple old right-sided rib fractures. IMPRESSION: 1. No fracture or dislocation at the right shoulder. 2. Mild glenohumeral and moderate acromioclavicular degenerative change. 3. Multiple old right-sided rib fractures. Report Dictated By: Sommer Rodriguez MD at 08/26/2017 8:05 PM Report E-Signed By: Sommer Rodriguez MD at 08/26/2017 8:06 PM WSN:[id number]
--- NOTE | 2017-08-26 20:16 | RADIOLOGY IMAGING REPORT ---
[place] [facility] [place] NAME: Vera Tidwell : 1940 MR: [id number] V: [id number] EXAM DATE: ORDERING PHYSICIAN: ABHIJIT FINCH TECHNOLOGIST: Location: [facility] Patient: Vera Tidwell : 1940 Visit/Account:[id number] Date of Sevice: 08/26/2017 INDICATION: metastatic cancer, hip and shoulder pain, fall. DATE: 08/26/2017 8:06 PM. TECHNIQUE: HIP RIGHT COMPARISON: Hip radiographs of May 25, 2017. FINDINGS: Deformation of the right femoral head has progressed from the comparison, and the superior acetabular fragment on the right is more displaced than on the prior study. There is [id number] art iculation at the right hip, progressed since prior. Degenerative findings are severe within the incom pletely imaged lumbar spine. Numerous sclerotic metastases or more conspicuous on the prior study. IMPRESSION: Progressive deformation of the right femoral head, joint space loss, and displacement of a fragment a t the right acetabular roof since the comparison. Report Dictated By: Sommer Rodriguez MD at 08/26/2017 8:06 PM Report E-Signed By: Sommer Rodriguez MD at 08/26/2017 8:12 PM WSN:[id number]
--- NOTE | 2017-08-26 20:51 | RADIOLOGY IMAGING REPORT ---
[place] [facility] [place] NAME: Vera Tidwell : 1940 MR: [id number] V: [id number] EXAM DATE: ORDERING PHYSICIAN: ABHIJIT FINCH TECHNOLOGIST: Location: [facility] [place] Patient: Vera Tidwell : 1940 Visit/Account:[id number] Date of Sevice: 08/26/2017 PELVIS W/O CONTRAST Indication: Right hip fracture Comparison: Post radiograph 08/26/2017 Technique: CT from the iliac crests to the pubic symphysis was obtained without contrast. One of the following dose optimization techniques was utilized in the performance of this exam: automated exposu re control; adjustment of the mA and/or kV according to the patient's size; or use of an iterative re construction technique. Specific details can be referenced in the facility's radiology CT exam opera tional policy. Findings: There is abnormal sclerotic changes consistent with metastatic disease throughout the visua lized portions of the lumbar spine, bones the pelvis, and proximal right left femur. Minimally displaced fracture of the anterior and posterior rim of the right acetabulum is seen. The r ight femoral head, femoral neck, and proximal femur are intact. Left proximal femur is normal. The ri ght and left superior and inferior pubic rami are intact. Right and left iliac crests are intact. The sacroiliac joints demonstrate normal alignment. Sacral jeanette is unremarkable. Soft tissues demonstrate a hematoma adjacent to the right hip. Urinary bladder is normal. There is a pessary ring in the vagina. IMPRESSION: 1. Minimally displaced fracture of the superior acetabulum at the anterior and posterior rim of the r ight acetabulum. This is slightly increased compared to prior CT abdomen and pelvis dated 04/30/2017. Patient previous CT demonstrates a fracture at the same site of the anterior and posterior rim of th e pelvis. 2. Right femoral head is intact. 3. Sclerotic lesions throughout all bones, consistent with metastatic disease. These has history of b reast cancer. This was called by Dr. Gregorio to ABHIJIT FINCH on 08/26/2017 8:31 PM Report Dictated By: Edwin Gregorio at 08/26/2017 8:31 PM Report E-Signed By: Edwin Gregorio at 08/26/2017 8:46 PM WSN:[id number]
[2017-08-26 22:18] VITALS: BP 167/82
[2017-08-26] MEDS ORDERED: INFLUENZA VIRUS VAC 0.5 ML SYR IM ONLY ONE (23:10)
--- NOTE | 2017-08-26 23:24 | History & Physical ---
History of Present Illness Chief Complaint Hip pain History of Present Illness This patient presented to the emergency room complaining of worsening right hip pain. She was first found to have a right acetabular fracture in May of this year. It was identified as a nonsurgical fracture at that time, but she has fallen several more times recently and reinjured the right hip after one of the more recent episodes. History Problems: (1) Parkinson disease (2) Stage IV carcinoma of breast Home Meds Active Scripts Hydrocodone Bit/Acetaminophen (HYDROCODON-ACETAMINOPHN 10-300) 1 Each Tablet, 1- 2 EACH PO Q4H, #90 TAB Prov:TWILA RUBIO MD 08/03/17 Folic Acid (FOLIC ACID) 1 Mg Tablet, 1 MG PO QDAY, #30 TAB 6 Refills Prov:RU BRADY CONTACT OFFICER-BC, ONC 07/08/17 Diclofenac Sodium 1% Gel (VOLTAREN 1% GEL) 100 Gm Gel..gram., 2 GM TOP QID for 30 Days, #1 TUBE 3 Refills Prov:ALICE ZAMORANO MD 06/26/17 Potassium Chloride (Potassium Chloride) 20 Meq Tablet.er, 20 MEQ PO BID for hypokalemia for 30 Days, #60 TAB 6 Refills Prov:RU BRADY CONTACT OFFICER-BC, ONC 03/12/17 Reported Medications Acetaminophen (TYLENOL EXTRA STRENGTH) 500 Mg Tablet, 1000 MG PO BID, TAB 08/03/17 Pramipexole Di-Hcl (MIRAPEX) 0.75 Mg Tablet, 0.75 MG PO BID 08/02/17 Pertuzumab (PERJETA) Unknown Strength Vial, IV Q3WK, VIAL 06/01/17 Trastuzumab (Herceptin) Unknown Strength Vial, 1 Q3WK 06/01/17 Magnesium Citrate (MAGNESIUM CITRATE) 100 Mg Tablet, 1 TAB PO DAILY 06/01/17 Ubidecarenone (COQ-10) 100 Mg Capsule, 2 CAP PO DAILY, CAPSULE 06/01/17 Denosumab (XGEVA) 120 Mg/1.7 Ml Vial, 120 MG SUBQ Q4WK, VIAL 11/04/16 Cholecalciferol (Vitamin D3) (VITAMIN D3) 1,000 Unit Tablet, 1 TAB PO DAILY 10/23/16 Carbidopa/Levodopa (CARBIDOPA-LEVO 25-100 MG ODT) 1 Each Tab.rapdis, 1 EACH PO TID 10/23/16 Discontinued Reported Medications Naproxen Sodium (ALEVE) 220 Mg Capsule, 220 MG PO PRN, CAPSULE 10/23/16 Allergies: Coded Allergies: amantadine (Verified Allergy, Severe, hallucinations and falling, 06/01/17) Sulfa (Sulfonamide Antibiotics) (Verified Allergy, Unknown, 10/23/16) Hx Smoking: No Smoking Status: Never Smoker Exposure to Second Hand Smoke?: No Caffeine Intake: Soda Caffeine/Cups Per Day: 1 diet coke Hx Alcohol Use: No Hx Substance Use Disorder: No Social Drug Use: Never History of IV Drug Use: No Review of Systems All Systems Reviewed/Normal: Yes, Except as Noted Musculoskeletal: Pain Exam Vital Signs Vital Signs Date Time Temp Pulse Resp B/P (MAP) Pulse Ox O2 Delivery O2 Flow Rate FiO2 08/26/17 23:10 86 08/26/17 22:18 98.7 70 14 167/82 (110) Nasal Cannula 0.5 Neuro: No Gross deficits Eyes: PERRLA Cardiovascular: Regular Rate and Rhythm Respiratory: Clear to Auscultation GI: Abd Soft and Non-Tender Extremities: No Edema Integumentary: No Cyanosis Medical Decision Making EKG / Imaging Imaging Hip CT reviewed. Assessment and Plan Problems: (1) Pathologic acetabular fracture Status: Acute Assessment & Plan: Her CT scan does show some new displacement along her preexisting right acetabular fracture. She also has multiple sclerotic lesions throughout the pelvis. She has been admitted for pain control and therapy. (2) Parkinson disease Assessment & Plan: She is on chronic treatment with Sinemet and Mirapex. (3) Stage IV carcinoma of breast Assessment & Plan: She is receiving palliative chemotherapy through the Cancer Center. Copies to: ALICE ZAMORANO MD Venous Thromboembolism Antithrombotics Is Pt On Any Antithrombotics?: No Exam Sepsis Risk: No Definite Risk Problem Qualifiers (1) Pathologic acetabular fracture: Encounter type: initial encounter Laterality: right Qualified Codes: M84.454A - Pathological fracture, pelvis, initial encounter for fracture ADIA CONN DO Aug 26, 2017 23:24
[2017-08-27] VITALS (8 sets, daily range): BP systolic 109–160; BP diastolic 61–82; Ht 149.9 cm; Wt 45.4 kg
[2017-08-27] MEDS: HYDROmorphone HCL 2 MG/ML SDV IVP PRN ×2 (00:27→04:53)
[2017-08-27] MEDS: PRAMIPEXOLE DIHYDROCHL 0.25 MG PO SCH ×3 (00:27→21:02)
[2017-08-27] MEDS: CARBIDOPA/LEVODOPA 25/100 TAB PO SCH ×4 (00:31→21:02)
[2017-08-27 05:51] LABS: PLATELET COUNT, AUTOMATED 296 K/uL (150-450)
[2017-08-27] MEDS ORDERED: HYDROmorphone* 1 MG/ML 1 MG/ML ML IVP PRN (07:10)
[2017-08-27] MEDS ORDERED: POTASSIUM CHL 20 MEQ TABCR PO SCH (09:00)
[2017-08-27] MEDS: ENOXAPARIN 30 MG/0.3 ML SYR SC SCH (09:11)
[2017-08-27] MEDS: FOLIC ACID 1 MG TAB PO SCH (09:12)
[2017-08-27] MEDS: CHOLECALCIFEROL 1000 UNIT TAB PO SCH (09:12)
[2017-08-27] MEDS: HYDROmorphone* 1 MG/ML 1 MG/ML ML IVP PRN ×4 (09:21→22:20)
--- NOTE | 2017-08-27 13:50 | Medical Nutrition Therapy ---
Nutrition Anthropometrics Height (Inches): 59.00 Height (Calculated Centimeters: 149.087485 Weight (Pounds): 100 Weight (Calculated Kilograms): 45.359 BMI Calculated: 20.20 Frankie Nutrition Score: Probably Inadequate Frankie Nutrition Risk Score: 14 Dietary Referral Nutrition Risk Factors: Nutrition Risk Comment: Nutritional Diagnosis Nutritional Risk Acuity 2: Unintended Wt Loss >5%/mo Nutritional Risk Acuity 3: Weight Loss, Cancer Past Medical History: Past medical history of parkinsons disease, stage IV carcinoma of breast on palliative chemotherapy. Nutritional Acuity: 2-Moderate Nutrition Diagnosis: Increased Nutrient Needs Nutrition Etiology: Inadeq. Food/Kae Intake Nutrition Problem/Etiology/Sym: pt with a 12% weight loss in 10 months. Energy Requirement: 1115 (kcal/day (25 kcal/kg)- [place] [facility] Jeor RMR (844) IF 1.1, AF 1.2) Protein Requirement: 45 (g/day (1 g/kg)) Fluid Requirement: 1350 (mL/day (30 ml/kg)) Diet Type: Diet as Tolerated LINDSEY/REG Nutrition Intervention: Cont diet as ordered, Encourage intake Diet Comment To RSA: OFFER NUTRITION SUPPLEMENT WITH EACH MEAL Nutrition Monitoring & Eval Nutrition Goals: Eat 90-100% Meal Nutrition Follow-Up: Fair Intake, Poor Intake RD Patient Assessment Time: [address] Assessment Type: RD Assessment Patient Nutrition Acuity: 2-Moderate Follow Up Date: Aug 29, 2017 Nutritional Comment: 08/27 Pt admitted for pathologic acetabular fracture due to falling. Pt diet as tolerated and has consumed 50% x 1 meal since admit. Per EMR, pt weighed 113 lbs on 10/23/16 now weighting 99 lbs, resulting in a 12% weight loss in 10 months. During visit with pt, pt appeared to be confused. Monitor pt status and intake. ERENDIRA HUMPHRIES Aug 27, 2017 10:29
--- NOTE | 2017-08-27 15:42 | Hospitalist Progress Note ---
Subjective Progress Notes Subjective The patient continues to have an ache in her hip. Per nursing, her pain medication lasts about 3 hours. Physical Exam Vital Signs Date Time Temp Pulse Resp B/P (MAP) Pulse Ox O2 Delivery O2 Flow Rate FiO2 08/27/17 10:41 98.3 82 26 156/82 (106) 93 Nasal Cannula 0.5 Intake and Output 08/28/17 06:59 Intake Total 60 ml Balance 60 ml Intake Oral 60 ml # Voids 2 General Appearance: Alert, Awake, No Acute Distress Neuro: No Gross deficits Eyes: PERRLA Cardiovascular: Regular Rate and Rhythm Respiratory: Clear to Auscultation GI: Soft and Non-Tender Extremities: Warm, Perfused Psych: Appropriate Mood & Affect Result Diagram: 08/27/1751408/27/17514 Assessment and Plan Problems: (1) Pathologic acetabular fracture Status: Acute Assessment & Plan: Her CT scan does show some new displacement along her preexisting right acetabular fracture. She also has multiple sclerotic lesions throughout the pelvis. She has been admitted for pain control and therapy. Will increase her hydromorphone from 0.5mg q 4 hours to 0.5-1mg IV q 4 hours. (2) Parkinson disease Assessment & Plan: She is on chronic treatment with Sinemet and Mirapex. (3) Stage IV carcinoma of breast Assessment & Plan: She is receiving palliative chemotherapy through the Cancer Center. Dr. Aparicio has talked with the patient and the likely course of her disease. SW will arrange for Hospice to talk with the patient regarding her options. Time Spent on Plan of Care: < 30 min Exam Sepsis Risk: No Definite Risk Problem Qualifiers (1) Pathologic acetabular fracture: Encounter type: initial encounter Laterality: right Qualified Codes: M84.454A - Pathological fracture, pelvis, initial encounter for fracture LATRICIA PHILLIPS MD Aug 27, 2017 15:42
[2017-08-28 03:52] VITALS: BP 196/100
[2017-08-28] MEDS: HYDROmorphone* 1 MG/ML 1 MG/ML ML IVP PRN ×2 (04:06→08:22)
[2017-08-28 06:19] LABS: PLATELET COUNT, AUTOMATED 303 K/uL (150-450)
[2017-08-28 07:31] VITALS: BP 176/95
[2017-08-28] MEDS: CARBIDOPA/LEVODOPA 25/100 TAB PO SCH ×3 (08:50→21:15)
[2017-08-28] MEDS: CHOLECALCIFEROL 1000 UNIT TAB PO SCH (08:50)
[2017-08-28] MEDS: FOLIC ACID 1 MG TAB PO SCH (08:50)
[2017-08-28] MEDS: PRAMIPEXOLE DIHYDROCHL 0.25 MG PO SCH ×2 (08:50→21:15)
[2017-08-28] MEDS: POTASSIUM CHL 20 MEQ TABCR PO SCH (08:50)
[2017-08-28] MEDS: ENOXAPARIN 30 MG/0.3 ML SYR SC SCH (08:51)
[2017-08-28] MEDS ORDERED: ACETAMINOPHEN 500 MG TAB PO PRN (10:20)
[2017-08-28] MEDS ORDERED: IBUPROFEN 600 MG TAB PO PRN (10:20)
[2017-08-28] MEDS: LIDOCAINE 5% PATCH TP SCH (11:24)
--- NOTE | 2017-08-28 12:18 | Hospitalist Progress Note ---
Subjective Progress Notes Subjective The patient is without complaints. No concerns from staff. Physical Exam Vital Signs Date Time Temp Pulse Resp B/P (MAP) Pulse Ox O2 Delivery O2 Flow Rate FiO2 08/28/17 07:32 97 Nasal Cannula 0.5 08/28/17 07:31 98.2 79 20 176/95 (122) Intake and Output 08/29/17 07:00 Intake Total 240 ml Balance 240 ml Intake Oral 240 ml # Voids 2 General Appearance: Alert, Awake, No Acute Distress Result Diagram: 08/28/1748 08/28/1748 Assessment and Plan Problems: (1) Pathologic acetabular fracture Status: Acute Assessment & Plan: Her CT scan does show some new displacement along her preexisting right acetabular fracture. She also has multiple sclerotic lesions throughout the pelvis. She was admitted for pain control and therapy. Will start oral liquid morphine, Lidoderm, APAP and Ibuprofen for pain control. On hydromorphone 0.5-1mg IV q 4 hours for breakthrough pain. The plan is to go home with Hospice once we have a pain regimen figured out. (2) Parkinson disease Assessment & Plan: She is on chronic treatment with Sinemet and Mirapex. (3) Stage IV carcinoma of breast Assessment & Plan: She is receiving palliative chemotherapy through the Cancer Center. Dr. Aparicio has talked with the patient and the likely course of her disease. SW to arrange for Hospice. Exam Sepsis Risk: No Definite Risk Problem Qualifiers (1) Pathologic acetabular fracture: Encounter type: initial encounter Laterality: right Qualified Codes: M84.454A - Pathological fracture, pelvis, initial encounter for fracture DU VO MD Aug 28, 2017 12:18
[2017-08-28] MEDS: MORPHINE 10 MG/5 ML UDC PO PRN ×3 (12:28→19:39)
[2017-08-28 15:59] VITALS: BP 133/77
[2017-08-28 19:20] VITALS: BP 177/116
[2017-08-28] MEDS: PATCH REMOVAL 1 EA TP SCH (21:00)
[2017-08-28 23:15] VITALS: BP 131/71
[2017-08-29] VITALS (7 sets, daily range): BP systolic 99–134; BP diastolic 61–74
[2017-08-29] MEDS: MORPHINE 10 MG/5 ML UDC PO PRN ×2 (08:25→12:29)
[2017-08-29] MEDS: POTASSIUM CHL 20 MEQ TABCR PO SCH (09:26)
[2017-08-29] MEDS: LIDOCAINE 5% PATCH TP SCH (09:26)
[2017-08-29] MEDS: PRAMIPEXOLE DIHYDROCHL 0.25 MG PO SCH ×2 (09:26→20:20)
[2017-08-29] MEDS: CARBIDOPA/LEVODOPA 25/100 TAB PO SCH ×3 (09:27→20:19)
[2017-08-29] MEDS: ENOXAPARIN 30 MG/0.3 ML SYR SC SCH (09:27)
[2017-08-29] MEDS: CHOLECALCIFEROL 1000 UNIT TAB PO SCH (09:27)
[2017-08-29] MEDS: FOLIC ACID 1 MG TAB PO SCH (09:27)
--- NOTE | 2017-08-29 10:46 | Hospitalist Progress Note ---
Subjective Progress Notes Subjective This patient was admitted for a pathologic acetabular fracture. She had no acute events overnight. Patient Complains of: Cardiovascular: No: Chest Pain Respiratory: No: Shortness of Breath Physical Exam Vital Signs Date Time Temp Pulse Resp B/P (MAP) Pulse Ox O2 Delivery O2 Flow Rate FiO2 08/29/17 07:45 98.1 73 16 134/74 (94) 86 Room Air 08/29/17 07:45 1.0 Intake and Output 08/30/17 07:00 Intake Total 360 ml Balance 360 ml Intake Oral 360 ml # Voids 1 Cardiovascular: Regular Rate and Rhythm Respiratory: Clear to Auscultation Result Diagram: 08/28/1748 08/28/1748 Assessment and Plan Problems: (1) Pathologic acetabular fracture Status: Acute Assessment & Plan: Her CT scan did show some new displacement along her preexisting right acetabular fracture. She also has multiple sclerotic lesions throughout the pelvis. Her pain is controlled with oral morphine and lidocaine patches. (2) Parkinson disease Assessment & Plan: She is on chronic treatment with Sinemet and Mirapex. (3) Stage IV carcinoma of breast Assessment & Plan: She is receiving palliative [facility]. Dr. Aparicio has talked with the patient and the likely course of her disease. SW to arrange for Hospice. Exam Sepsis Risk: No Definite Risk Problem Qualifiers (1) Pathologic acetabular fracture: Encounter type: initial encounter Laterality: right Qualified Codes: M84.454A - Pathological fracture, pelvis, initial encounter for fracture ADIA CONN DO Aug 29, 2017 10:45
--- NOTE | 2017-08-29 12:28 | Medical Nutrition Therapy ---
Nutrition Anthropometrics Height (Inches): 59.00 Height (Calculated Centimeters: 149.871519 Weight (Pounds): 100 Weight (Calculated Kilograms): 45.359 BMI Calculated: 20.20 Frankie Nutrition Score: Probably Inadequate Frankie Nutrition Risk Score: 14 Dietary Referral Nutrition Risk Factors: Nutrition Risk Comment: Physical Findings Physical Appearance: BMI 20 Skin Appearance Skin Appearance: Edema Edema Location Modifier: Edema Location: Type of Edema: Degree of Edema: Gastrointestinal Symptoms GI Symtoms: Tube Present: Bowel Sounds: Recent Bowel Pattern: Stool Characteristics: Nutritional Diagnosis Nutritional Risk Acuity 2: Unintended Wt Loss >5%/mo Nutritional Risk Acuity 3: Weight Loss, Cancer Past Medical History: Past medical history of parkinsons disease, stage IV carcinoma of breast on palliative chemotherapy. Nutritional Acuity: 2-Moderate Nutrition Diagnosis: Increased Nutrient Needs Nutrition Etiology: Inadeq. Food/Kae Intake Nutrition Problem/Etiology/Sym: pt with a 12% weight loss in 10 months. Energy Requirement: 1115 (kcal/day (25 kcal/kg)- [place] St Jeor RMR (844) IF 1.1, AF 1.2) Protein Requirement: 45 (g/day (1 g/kg)) Fluid Requirement: 1350 (mL/day (30 ml/kg)) Diet Type: Diet as Tolerated LINDSEY/REG Nutrition Intervention: Cont diet as ordered, Encourage intake Diet Comment To RSA: OFFER NUTRITION SUPPLEMENT WITH EACH MEAL Nutrition Monitoring & Eval RD Patient Assessment Time: [address] Assessment Type: RD Assessment Patient Nutrition Acuity: 2-Moderate Follow Up Date: Sep 02, 2017 Nutritional Comment: 08/27 Pt admitted for pathologic acetabular fracture due to falling. Pt diet as tolerated and has consumed 50% x 1 meal since admit. Per EMR, pt weighed 113 lbs on 10/23/16 now weighting 99 lbs, resulting in a 12% weight loss in 10 months. During visit with pt, pt appeared to be confused. Monitor pt status and intake. 08/29 Average intake of 65% of meals. Plan to discharge with hospice and manage pain. Notable labs include BUN, 20, Na 135. Will cont to monitor and encourage intake. CULLEN CORBIN Aug 29, 2017 12:28
[2017-08-29] MEDS ORDERED: NS(*) 0.9% 1000 ML BAG 1,000 ML IV PRN (18:10)
[2017-08-29] MEDS: PATCH REMOVAL 1 EA TP SCH (20:19)
[2017-08-30 03:15] VITALS: BP 138/75
[2017-08-30 07:57] VITALS: BP 159/85
[2017-08-30] MEDS: CHOLECALCIFEROL 1000 UNIT TAB PO SCH (09:44)
[2017-08-30] MEDS: PRAMIPEXOLE DIHYDROCHL 0.25 MG PO SCH (09:45)
[2017-08-30] MEDS: FOLIC ACID 1 MG TAB PO SCH (09:45)
[2017-08-30] MEDS: POTASSIUM CHL 20 MEQ TABCR PO SCH (09:45)
[2017-08-30] MEDS: ENOXAPARIN 30 MG/0.3 ML SYR SC SCH (09:46)
[2017-08-30] MEDS: CARBIDOPA/LEVODOPA 25/100 TAB PO SCH ×2 (09:47→14:19)
[2017-08-30] MEDS: LIDOCAINE 5% PATCH TP SCH (09:47)
[2017-08-30] MEDS: MORPHINE 10 MG/5 ML UDC PO PRN ×3 (10:43→14:19)
[2017-08-30 10:50] VITALS: BP 150/76
[2017-08-30] MEDS ORDERED: MORP10SO10 PO (11:47)
[2017-08-30] MEDS ORDERED: IBUP600T22 PO (11:47)
[2017-08-30] MEDS ORDERED: LIDO700A19 TP (11:47)
--- NOTE | 2017-08-30 12:04 | Hospitalist Depart ---
Discharge Summary Reason for Hosp/Final Diag: (1) Pathologic acetabular fracture Status: Acute Hospital Course & Plan: Her CT scan does show some new displacement along her preexisting right acetabular fracture. She also has multiple sclerotic lesions throughout the pelvis. Orthopedics didn't think there were any surgical options , so she was admitted for pain control and therapy. Her pain has been controlled with oral liquid morphine, Lidoderm, and APAP. PT worked with the patient to help with stand-pivot transfers and to be non-weight bearing on that side. The plan was to go home with Hospice, but the son would like to pursue continued aggressive treatment for the fracture, so is going home with private help. (2) Parkinson disease Hospital Course & Plan: She is on chronic treatment with Sinemet and Mirapex. (3) Stage IV carcinoma of breast Hospital Course & Plan: She is receiving palliative chemotherapy through the [facility]. Dr. Zamorano had talked with the patient about the likely course of her disease. Initially, Hospice was to be arranged, but the son doesn't want to do that and would like to continue aggressive treatment. The patient is in agreement. Departure Weight (Pounds): 100 Result Diagram: 08/28/1754708/28/17547 Item Value Date Time White Blood Count 4.8 k/uL 08/27/17514 White Blood Count 5.6 k/uL 08/28/17547 Hematocrit 39.7 % 08/28/17547 Hemoglobin 13.3 g/dL 08/28/17547 Hemoglobin 12.2 g/dL 08/27/17514 Hematocrit 36.4 % 08/27/17514 Platelet Count 296 K/uL 08/27/17514 Platelet Count 303 K/uL 08/28/1748 Neutrophils (%) (Auto) 75.3 % H 08/28/17547 Neutrophils (%) (Auto) 70.0 % 08/27/17514 Sodium Level 135 mmol/L L 08/28/17547 Sodium Level 137 mmol/L 08/27/1715 Blood Urea Nitrogen 19 mg/dl H 08/27/17514 Blood Urea Nitrogen 20 mg/dl H 08/28/17547 Creatinine 0.60 mg/dl 08/28/17547 Creatinine 0.70 mg/dl 4/12/18 0515 Random Glucose 81 mg/dl 08/27/17 0515 Random Glucose 95 mg/dl 08/28/17 0548 Imaging 08/26/[address] - 1. Minimally displaced fracture of the superior acetabulum at the anterior and posterior rim of the right acetabulum. This is slightly increased compared to prior CT abdomen and pelvis dated 04/30/2017. Patient previous CT demonstrates a fracture at the same site of the anterior and posterior rim of the pelvis. 2. Right femoral head is intact. 3. Sclerotic lesions throughout all bones, consistent with metastatic disease. These has history of breast cancer. 08/26/17 Hip Xray - Progressive deformation of the right femoral head, joint space loss, and displacement of a fragment at the right acetabular roof since the comparison. 08/26/17 Shoulder Xray - 1. No fracture or dislocation at the right shoulder. 2. Mild glenohumeral and moderate acromioclavicular degenerative change. 3. Multiple old right-sided rib fractures. Condition: Improved Discharge: Home, Home Health PT/OT Follow Up For: PT For Strengthening, OT For ADL's Discharge Instructions Home Meds Active Scripts Morphine Sulfate Oral Sln (MORPHINE SULFATE ORAL SLN) 10 Mg/5 Ml Solution, 10 MG PO Q1H Y for pain, #100 ML Prov:DU VO MD 08/30/17 Lidocaine (Lidocaine) 5 % Adh..patch, 1 EACH TP QDAY for 30 Days, Prov:DU VO MD 08/30/17 Ibuprofen (IBUPROFEN) 600 Mg Tablet, 600 MG PO Q8H Y for PAIN for 30 Days, Prov:DU VO MD 08/30/17 Folic Acid (FOLIC ACID) 1 Mg Tablet, 1 MG PO QDAY, #30 TAB 6 Refills Prov:RU BRADY [employer], ONC 07/08/17 Diclofenac Sodium 1% Gel (VOLTAREN 1% GEL) 100 Gm Gel..gram., 2 GM TOP QID for 30 Days, #1 TUBE 3 Refills Prov:ALICE ZAMORANO MD 06/26/17 Reported Medications Acetaminophen (TYLENOL EXTRA STRENGTH) 500 Mg Tablet, 1000 MG PO Q8H Y for PAIN , TAB 08/03/17 Pramipexole Di-Hcl (MIRAPEX) 0.75 Mg Tablet, 0.75 MG PO BID 08/02/17 Magnesium Citrate (MAGNESIUM CITRATE) 100 Mg Tablet, 1 TAB PO DAILY 06/01/17 Ubidecarenone (COQ-10) 100 Mg Capsule, 2 CAP PO DAILY, CAPSULE 06/01/17 Cholecalciferol (Vitamin D3) (VITAMIN D3) 1,000 Unit Tablet, 1 TAB PO DAILY 10/23/16 Carbidopa/Levodopa (CARBIDOPA-LEVO 25-100 MG ODT) 1 Each Tab.rapdis, 1 EACH PO TID 10/23/16 Discontinued Reported Medications Pertuzumab (PERJETA) Unknown Strength Vial, IV Q3WK, VIAL 06/01/17 Trastuzumab (Herceptin) Unknown Strength Vial, 1 Q3WK 06/01/17 Denosumab (XGEVA) 120 Mg/1.7 Ml Vial, 120 MG SUBQ Q4WK, VIAL 11/04/16 Naproxen Sodium (ALEVE) 220 Mg Capsule, 220 MG PO PRN, CAPSULE 10/23/16 Discontinued Scripts Hydrocodone Bit/Acetaminophen (HYDROCODON-ACETAMINOPHN 10-300) 1 Each Tablet, 1- 2 EACH PO Q4H, #90 TAB Prov:TWILA RUBIO MD 08/03/17 Potassium Chloride (Potassium Chloride) 20 Meq Tablet.er, 20 MEQ PO BID for hypokalemia for 30 Days, #60 TAB 6 Refills Prov:RU [employer], ONC 03/12/17 Special Instructions: Non-weight bearing on the right leg secondary to the acetabulum fracture. Follow up with your PCP in 1-2 weeks. Follow up with your Oncologist in 1-2 weeks. Copies to: ALICE ZAMORANO MD; TWILA RUBIO MD Venous Thromboembolism Antithrombotics Is Pt On Any Antithrombotics?: No Problem Qualifiers (1) Pathologic acetabular fracture: Encounter type: initial encounter Laterality: right Qualified Codes: M84.454A - Pathological fracture, pelvis, initial encounter for fracture DU VO MD Aug 30, 2017 12:04
== END 2017-08-30 14:45 | disposition home or self-care (01) | DRG 543 ==
LOC: ER 18:39 → MED 21:59
PROVIDERS: ADMIT Family Medicine; ATTEND Family Medicine
DX: M84.550A Pathological fracture in neoplastic disease, pelvis, initial encounter for fracture (principal); C79.51 Secondary malignant neoplasm of bone; G20 Parkinson's disease; G89.3 Neoplasm related pain (acute) (chronic); C50.919 Malignant neoplasm of unspecified site of unspecified female breast; W18.39XA Other fall on same level, initial encounter; Y92.009 Unspecified place in unspecified non-institutional (private) residence as the place of occurrence of the external cause; Y99.8 Other external cause status; Z88.2 Allergy status to sulfonamides; Z88.8 Allergy status to other drugs, medicaments and biological substances; Z86.73 Personal history of transient ischemic attack (TIA), and cerebral infarction without residual deficits
CPT/HCPCS: 36415; 72192; 82310; 82374; 82435; 82565; 82947; 84132; 84295; 84520; 85025; 96374; 96376; 97162; 99285; J1170; J1650; J7030

== ENCOUNTER 2017-09-09 16:00 | Outpatient (RCR) | payer MEDICARE, BC ==
[2017-08-31 14:12] VITALS: BP 131/81
--- NOTE | 2017-09-05 14:40 | ONCOLOGY FOLLOW UP NOTE ---
EVENT DATE: August 31, 2017 CHIEF COMPLAINT/REASON FOR VISIT Ms. Tidwell is a pleasant 77-year-old patient of Dr. Aparicio, who presents to discuss her metastatic breast cancer. HISTORY OF PRESENT ILLNESS Vera returns. She is here prior to cycle 13 of Herceptin and PERJETA. While her treatment is palliative in nature, she has had excellent response. Her tumor marker is down to the normal range. I am very concerned that her bones are devastated by her history of metastatic breast cancer. This is why we are having many issues with fracture and pain. Her goals of care were again discussed with Vera and her family today. She indicates that she is not yet ready for hospice and would like to continue Herceptin and PERJETA. I feel this is very reasonable. In the ideal setting, we would have palliative care services without hospice, but we do not have an organization that provides those in [place]. As such, I think we can consider home health therapies. Her family is discouraged by a conversation she had with a hospice nurse and they felt they were being pushed toward hospice. While she is a very appropriate candidate for hospice, we again reviewed her goals and she would like to continue palliative therapy. We may want to utilize the Pain [facility] as well to help with her pain issues. PAST MEDICAL/SURGICAL HISTORY 1. Parkinsonism. 2. Hyperlipidemia. 3. Hypertension. 4. Vitamin D deficiency. 5. Stage IV breast cancer, poorly differentiated ductal carcinoma with diffuse bony metastases, ER negative, HER2/maricarmen positive. SOCIAL HISTORY Patient has presented with her son and [id number] who both live here in [place]. REVIEW OF SYSTEMS CONSTITUTIONAL: No fevers, chills, signs of infection. HEENT: No headache or visual changes. NEUROLOGIC: Patient does have Parkinson's disease with tremors and dyskinesia. She feels that her gait is worse. CARDIOVASCULAR: No chest pain, dyspnea on exertion or edema. No known history of atrial fibrillation, but could be at risk with the enlarged atria. RESPIRATORY: No shortness of breath, wheeze, cough. GASTROINTESTINAL: No nausea, vomiting. GENITOURINARY: No dysuria or hematuria. MUSCULOSKELETAL: Positive right hip and shoulder pain. GYNECOLOGICAL: History of uterine prolapse. PSYCHIATRIC: No anxiety or depression. The remainder of the 14-point review of systems is otherwise negative. PHYSICAL EXAMINATION VITAL SIGNS: Blood pressure 131/81, pulse 84, respiratory rate 16, temperature 96.9 Fahrenheit, oxygen saturation 95% on room air. Weight not done today. Pain 3/10 in the right hip, fatigue 6/10. Fall risk high. PAST MEDICAL/SURGICAL HISTORY 1. Parkinsonism. 2. Hyperlipidemia. 3. Hypertension. 4. Vitamin D deficiency. 5. Stage IV breast cancer, poorly differentiated ductal carcinoma with diffuse bony metastases, ER negative, HER2/maricarmen positive. SOCIAL HISTORY Patient has presented with her son and [id number] who both live here in [place]. REVIEW OF SYSTEMS CONSTITUTIONAL: No fevers, chills, signs of infection. HEENT: No headache or visual changes. NEUROLOGIC: Patient does have Parkinson's disease with tremors and dyskinesia. She feels that her gait is worse. CARDIOVASCULAR: No chest pain, dyspnea on exertion or edema. No known history of atrial fibrillation, but could be at risk with the enlarged atria. RESPIRATORY: No shortness of breath, wheeze, cough. GASTROINTESTINAL: No nausea, vomiting. GENITOURINARY: No dysuria or hematuria. MUSCULOSKELETAL: Positive right hip and shoulder pain. GYNECOLOGICAL: History of uterine prolapse. PSYCHIATRIC: No anxiety or depression. The remainder of the 14-point review of systems is otherwise negative. PHYSICAL EXAMINATION VITAL SIGNS: Blood pressure 168/80, pulse 76, respiratory rate 14, temperature 96.8 Fahrenheit, oxygen saturation 94% on room air. Weight 46.6 kg, which is slightly up. Pain 7/10, fatigue moderate. GENERAL: In stable condition, resting comfortably in the wheelchair. ECOG performance status of 2. SKIN: No concerning rashes. NEUROMUSCULAR: Gait not assessed today. PSYCHIATRIC: Alert and oriented. Normal mood and affect. Remainder of full physical exam deferred. IMPRESSION AND PLAN Mrs. Tidwell is a very pleasant 77-year-old female with the followin. Metastatic ER/MI negative HER2/maricarmen overexpressed breast cancer. I recommend that she continue PERJETA and Herceptin indefinitely as her tumor markers have normalized. She remains uninterested in chemotherapy. We will continue the supportive Xgeva, but will eventually need to back off on its frequency. 2. Parkinson's disease on carbidopa/levodopa. Appreciate the care by Dr. Aparicio with management of her dosing. I did advise that over time I do expect her dose to slowly go up. 3. Memory loss. Highly concerning for vascular dementia. Her blood pressure has been improved at recent visits, but was elevated today. She is concerned that she dropped her pill box and may not have taken all of her medications today, which could explain the isolated elevated blood pressure. 4. Goals of care: We discussed quality of life and I feel she needs physical therapy and to take her medications including pain medications regularly. I would like to continue with her successful anti-HER2 dual therapy. She agrees with this after discussion, as does the family. We will continue to see her monthly on therapy. Billing: Return visit level 5. Total time 45 minutes, counseling time 30. High risk, high complexity. Full physical exam deferred today to amount of time spent in counseling and coordination of care with the patient. IMPRESSION AND PLAN Mrs. Tidwell is a very pleasant 76-year-old female with the followin. Metastatic breast cancer, HER2 positive. 2. Goals of care discussion. 3. Cancer-related pain. I had an excellent meeting with Mrs. Tidwell and her family today. We extensively reviewed her goals of care and she would like to continue palliative therapy with Herceptin and PERJETA. She has had outstanding response with this and I think it is very reasonable. She does have devastating bone damage from her prior history of breast cancer in the bone, which is now adequately treated. This will continue to be a problem and Vera and her family understand this. We would like to utilize potentially home health services or any other services we can utilize to help them with care at home. I answered all of their many questions today. Discussed the case with Dr. Aparicio. Billing: Return visit level 4. Total time 30 minutes, counseling time 20. MTDD
[~2017-09-09 16:00] MED LIST changes: +HYDR-4305 PO; +IBUP600T22 PO; +LIDO700A19 TP; +MORP10SO10 PO
[2017-09-09] MEDS ORDERED: DENOSUMAB 120 MG/1.7 ML VIAL SUBQ ONE (16:25)
[2017-09-09 16:27] VITALS: BP 132/79
[2017-09-09] MEDS ORDERED: MORP10SO10 PO (16:37)
== END 2017-09-11 09:23 | disposition home or self-care (01) ==
LOC: SPU 16:00
PROVIDERS: ATTEND Internal Medicine
DX: C50.919 Malignant neoplasm of unspecified site of unspecified female breast (principal); C79.51 Secondary malignant neoplasm of bone; Z17.0 Estrogen receptor positive status [ER+]; G20 Parkinson's disease; R41.3 Other amnesia
CPT/HCPCS: 96372; G0463; J0897; 99212

== ENCOUNTER 2017-09-13 17:58 | Observation (INO) | payer MEDICARE, BC ==
[~2017-09-13] VITALS: Ht 152.4 cm; Wt 48.5 kg
[~2017-09-13 17:58] MED LIST changes: -ACET-1966 PO; -BISA10SU66 PR; -DOCU-202 PO; -MORP-20 PO; -POLY17PO21 PO; -POTA20TA94 PO; -PROC-5 PO; +PROC10TA95 PO; -[UNRECOGNIZED DRUG - CODE] PO
--- NOTE | 2017-09-13 18:01 | ER Report ---
History and Physical Time Seen By MD: 17:56 HPI/ROS CHIEF COMPLAINT: Severe right hip pain HISTORY OF PRESENT ILLNESS: 77-year-old female with a known history of metastatic breast cancer on palliative chemotherapy. Patient was recently evaluated by oncology, Dr. Irwin and her gerontologist, Dr. Kathryn Zamorano. She was placed on oral morphine for pain control. She has a known history of a pathologic fracture of the right acetabulum. CAT scan was performed approximately 2 weeks ago when she was admitted to the hospital for a week. Apparently orthopedics feels there is no upper bridge surgical intervention for her at this time. Patient does report one fall over the last week. Her son reports that he is unable to transfer her due to the level of her severe pain. He's been giving her oral morphine solution without improvement of her pain. She is unable to transfer today and 911 was called to bring her in for evaluation. EMS administered formula grams of morphine in the field and brought her hand still and pretty significant pain. Patient denies shortness of breath, chest pain, fever or chills. She denies nausea or vomiting. REVIEW OF SYSTEMS: Respiratory: No cough, no dyspnea. Cardiovascular: No chest pain, no palpitations. Gastrointestinal: No vomiting, no abdominal pain. Musculoskeletal: As above Allergies: Coded Allergies: amantadine (Verified Allergy, Severe, hallucinations and falling, 06/01/17) Sulfa (Sulfonamide Antibiotics) (Verified Allergy, Unknown, 10/23/16) Home Meds Active Scripts Ibuprofen (IBUPROFEN) 600 Mg Tablet, 600 MG PO Q8H Y for PAIN for 30 Days, Prov:DU VO MD 08/30/17 Folic Acid (FOLIC ACID) 1 Mg Tablet, 1 MG PO QDAY, #30 TAB 6 Refills Prov:RU BRADY [employer]EN[employer]ROOM [employer]ICIAN-BC, ONC 07/08/17 Reported Medications Morphine Sulfate Oral Sln (MORPHINE SULFATE ORAL SLN) 10 Mg/5 Ml Solution, 10 MG PO Q1H Y for PAIN, ML 09/13/17 Acetaminophen (TYLENOL) 325 Mg Tablet, 1000 MG PO BID, TAB 09/13/17 Pramipexole Di-Hcl (PRAMIPEXOLE DIHYDROCHLORIDE) 0.75 Mg Tablet, 0.75 MG PO 09/13/17 Potassium Chloride (POTASSIUM CHLORIDE) 20 Meq Tab.er.prt, 20 MEQ PO QDAY 09/13/17 Hydrocodone Bit/Acetaminophen (NORCO 10-325 TABLET) 1 Each Tablet, 2 TAB PO Q4H Y for PAIN 09/09/17 Magnesium Citrate (MAGNESIUM CITRATE) 100 Mg Tablet, 1 TAB PO DAILY 06/01/17 Ubidecarenone (COQ-10) 100 Mg Capsule, 2 CAP PO DAILY, CAPSULE 06/01/17 Cholecalciferol (Vitamin D3) (VITAMIN D3) 1,000 Unit Tablet, 1 TAB PO DAILY 10/23/16 Carbidopa/Levodopa (CARBIDOPA-LEVO 25-100 MG ODT) 1 Each Tab.rapdis, 1 EACH PO TID 10/23/16 Discontinued Reported Medications Acetaminophen (TYLENOL EXTRA STRENGTH) 500 Mg Tablet, 1000 MG PO Q8H Y for PAIN , TAB 08/03/17 Pramipexole Di-Hcl (MIRAPEX) 0.75 Mg Tablet, 0.75 MG PO BID 08/02/17 Discontinued Scripts Morphine Sulfate Oral Sln (MORPHINE SULFATE ORAL SLN) 10 Mg/5 Ml Solution, 2.5- 10 MG PO Q1H Y for pain, #100 ML 0 Refills Prov:KATHRYN ZAMORANO MD 09/09/17 Lidocaine (Lidocaine) 5 % Adh..patch, 1 EACH TP QDAY for 30 Days, Prov:DU VO MD 08/30/17 Diclofenac Sodium 1% Gel (VOLTAREN 1% GEL) 100 Gm Gel..gram., 2 GM TOP QID for 30 Days, #1 TUBE 3 Refills Prov:KATHRYN ZAMORANO MD 06/26/17 Past Medical/Surgical History PAST MEDICAL/SURGICAL HISTORY 1. Parkinsonism. 2. Hyperlipidemia. 3. Hypertension. 4. Vitamin D deficiency. 5. Stage IV breast cancer, poorly differentiated ductal carcinoma with diffuse bony metastases, ER negative, HER2/maricarmen positive. 6. Pathologic fracture of right acetabulum Reviewed Nurses Notes: Yes Old Medical Records Reviewed: Yes Hx Smoking: No Smoking Status: Never Smoker Exposure to Second Hand Smoke?: No Hx Substance Use Disorder: No Hx Alcohol Use: No Constitutional Vital Sign - Last 24 Hours 09/13/17 09/13/17 09/13/17 09/13/17 17:58 18:00 18:00 18:00 Temp 98.3 Pulse 95 89 Resp 18 B/P (MAP) 178/94 (122) 178/94 Pulse Ox 94 92 O2 Delivery Room Air O2 Flow Rate 2.0 09/13/17 09/13/17 09/13/17 09/13/17 18:13 18:28 18:30 18:43 Pulse 96 89 80 Resp 10 33 13 B/P (MAP) 173/84 (113) Pulse Ox 92 98 98 09/13/17 09/13/17 09/13/17 09/13/17 18:58 19:00 19:13 19:18 Pulse 79 83 91 Resp 17 16 19 B/P (MAP) 153/94 (113) Pulse Ox 98 98 96 09/13/17 09/13/17 19:30 19:33 Pulse 79 Resp 25 B/P (MAP) 167/88 (114) Pulse Ox 98 Physical Exam General Appearance: The patient is alert, has no immediate need for airway protection and no current signs of toxicity.. Moderate distress, slightly pale appearing, skin warm and dry HEENT: Pupils equal and round no injection. Respiratory: Chest is non tender, lungs are clear to auscultation. No chest wall tenderness Cardiac: regular rate and rhythm Gastrointestinal: Abdomen is soft and non tender, no masses, bowel sounds normal. Musculoskeletal: Neck: Neck is supple and non tender. Extremities have full range of motion and are non tender. There is severe tenderness of the right hip area. There is extreme pain with movement. On transfer to the abdomen, splenic patient had significant pain. The right lower externally is noted to be neurovascularly intact. Ears, no shortening or external rotation. Skin: No rashes or lesions. DIFFERENTIAL DIAGNOSIS: After history and physical exam differential diagnosis was considered for acetabular fracture, pathologic fracture, read fracture, metastatic breast cancer disease. Medical Decision Making Data Points Result Diagram: 09/13/17 1758 09/13/17 175 Laboratory Hematology Test 09/13/17 17:58 09/13/17 19:10 Red Blood Count 4.33 M/uL (4.17-5.56) Mean Corpuscular Volume 87.8 fL (80.0-96.0) Mean Corpuscular Hemoglobin 28.9 pg (26.0-33.0) Mean Corpuscular Hemoglobin Concent 32.9 g/dL (32.0-36.0) Red Cell Distribution Width 15.1 % (11.5-14.5) Mean Platelet Volume 8.1 fL (7.2-11.1) Neutrophils (%) (Auto) 69.9 % (39.4-72.5) Lymphocytes (%) (Auto) 15.7 % (17.6-49.6) Monocytes (%) (Auto) 7.2 % (4.1-12.4) Eosinophils (%) (Auto) 3.7 % (0.4-6.7) Basophils (%) (Auto) 3.5 % (0.3-1.4) Nucleated RBC Relative Count (auto) 0.0 /100WBC Neutrophils # (Auto) 4.2 K/uL (2.0-7.4) Lymphocytes # (Auto) 0.9 K/uL (1.3-3.6) Monocytes # (Auto) 0.4 K/uL (0.3-1.0) Eosinophils # (Auto) 0.2 K/uL (0.0-0.5) Basophils # (Auto) 0.2 K/uL (0.0-0.1) Nucleated RBC Absolute Count (auto) 0.00 K/uL Peripheral Blood Smear Yes Y/N Sodium Level 141 mmol/L (137-145) Potassium Level 4.3 mmol/L (3.5-5.0) Chloride Level 104 mmol/L (98-107) Carbon Dioxide Level 25 mmol/L (22-31) Blood Urea Nitrogen 25 mg/dl (7-18) Creatinine 0.80 mg/dl (0.52-1.04) Glomerular Filtration Rate Calc > 60.0 Random Glucose 114 mg/dl (75-110) Calcium Level 9.3 mg/dl (8.4-10.2) Total Bilirubin 0.4 mg/dl (0.2-1.3) Aspartate Amino Transf (AST/SGOT) 23 U/L (0-35) Alanine Aminotransferase (ALT/SGPT) 18 U/L (0-56) Alkaline Phosphatase 89 U/L (0-126) Total Protein 7.0 gm/dl (6.3-8.2) Albumin 3.7 g/dl (3.5-5.0) Urine Color Yellow Urine Clarity Clear Urine pH 5.0 pH (4.8-9.5) Urine Specific [place] 1.027 Urine Protein Negative mg/dL (NEGATIVE) Urine Glucose (UA) Negative mg/dL (NEGATIVE) Urine Ketones Trace mg/dL (NEGATIVE) Urine Blood Negative (NEGATIVE) Urine Nitrite Negative (NEGATIVE) Urine Bilirubin Negative (NEGATIVE) Urine Urobilinogen 4.0 mg/dL (0.2-1.9) Urine Leukocyte Esterase Negative (NEGATIVE) Urine RBC None /HPF (0-2/HPF) Urine WBC None /HPF (0-5/HPF) Urine Squamous Epithelial Cells Few /LPF (NONE-FEW) Urine Bacteria Negative /HPF (NONE-FEW) Urine Mucus Few /HPF (NONE-FEW) Chemistry Test 09/13/17 17:58 09/13/17 19:10 White Blood Count 6.0 k/uL (4.5-11.0) Red Blood Count 4.33 M/uL (4.17-5.56) Hemoglobin 12.5 g/dL (12.0-16.0) Hematocrit 38.0 % (34.0-47.0) Mean Corpuscular Volume 87.8 fL (80.0-96.0) Mean Corpuscular Hemoglobin 28.9 pg (26.0-33.0) Mean Corpuscular Hemoglobin Concent 32.9 g/dL (32.0-36.0) Red Cell Distribution Width 15.1 % (11.5-14.5) Platelet Count 355 K/uL (150-450) Mean Platelet Volume 8.1 fL (7.2-11.1) Neutrophils (%) (Auto) 69.9 % (39.4-72.5) Lymphocytes (%) (Auto) 15.7 % (17.6-49.6) Monocytes (%) (Auto) 7.2 % (4.1-12.4) Eosinophils (%) (Auto) 3.7 % (0.4-6.7) Basophils (%) (Auto) 3.5 % (0.3-1.4) Nucleated RBC Relative Count (auto) 0.0 /100WBC Neutrophils # (Auto) 4.2 K/uL (2.0-7.4) Lymphocytes # (Auto) 0.9 K/uL (1.3-3.6) Monocytes # (Auto) 0.4 K/uL (0.3-1.0) Eosinophils # (Auto) 0.2 K/uL (0.0-0.5) Basophils # (Auto) 0.2 K/uL (0.0-0.1) Nucleated RBC Absolute Count (auto) 0.00 K/uL Peripheral Blood Smear Yes Y/N Glomerular Filtration Rate Calc > 60.0 Calcium Level 9.3 mg/dl (8.4-10.2) Total Bilirubin 0.4 mg/dl (0.2-1.3) Aspartate Amino Transf (AST/SGOT) 23 U/L (0-35) Alanine Aminotransferase (ALT/SGPT) 18 U/L (0-56) Alkaline Phosphatase 89 U/L (0-126) Total Protein 7.0 gm/dl (6.3-8.2) Albumin 3.7 g/dl (3.5-5.0) Urine Color Yellow Urine Clarity Clear Urine pH 5.0 pH (4.8-9.5) Urine Specific [place] 1.027 Urine Protein Negative mg/dL (NEGATIVE) Urine Glucose (UA) Negative mg/dL (NEGATIVE) Urine Ketones Trace mg/dL (NEGATIVE) Urine Blood Negative (NEGATIVE) Urine Nitrite Negative (NEGATIVE) Urine Bilirubin Negative (NEGATIVE) Urine Urobilinogen 4.0 mg/dL (0.2-1.9) Urine Leukocyte Esterase Negative (NEGATIVE) Urine RBC None /HPF (0-2/HPF) Urine WBC None /HPF (0-5/HPF) Urine Squamous Epithelial Cells Few /LPF (NONE-FEW) Urine Bacteria Negative /HPF (NONE-FEW) Urine Mucus Few /HPF (NONE-FEW) Urinalysis Test 09/13/17 19:10 Urine Color Yellow Urine Clarity Clear Urine pH 5.0 pH (4.8-9.5) Urine Specific [place] 1.027 Urine Protein Negative mg/dL (NEGATIVE) Urine Glucose (UA) Negative mg/dL (NEGATIVE) Urine Ketones Trace mg/dL (NEGATIVE) Urine Blood Negative (NEGATIVE) Urine Nitrite Negative (NEGATIVE) Urine Bilirubin Negative (NEGATIVE) Urine Urobilinogen 4.0 mg/dL (0.2-1.9) Urine Leukocyte Esterase Negative (NEGATIVE) Urine RBC None /HPF (0-2/HPF) Urine WBC None /HPF (0-5/HPF) Urine Squamous Epithelial Cells Few /LPF (NONE-FEW) Urine Bacteria Negative /HPF (NONE-FEW) Urine Mucus Few /HPF (NONE-FEW) ED Course/Re-evaluation Clinical Indication for ER IV: Hydration, IV Access ED Course Patient was admitted to an examination room. The difficult diagnosis was considered. Patient was medicated for pain with Dilaudid IV. Repeat x-rays of her hip were performed. Shows continued collapse of the femoral head. Laboratory studies are unremarkable. Patient will be admitted to the hospitalist for additional pain management and consideration of placement issues. Patient will likely need hospice. 09/13/2017 7:20:14 pm case discussed with Dr. Bailey hospitalist on-call, who accepts the patient for readmission for further management of her pathologic right hip fracture Decision to Disposition Date: Sep 13, 2017 Decision to Disposition Time: 19:20 Depart Departure Latest Vital Signs Vital Signs Date Time Temp Pulse Resp B/P (MAP) Pulse Ox O2 Delivery O2 Flow Rate FiO2 09/13/17 19:33 79 25 98 09/13/17 19:30 167/88 (114) 09/13/17 18:00 2.0 09/13/17 18:00 98.3 Room Air Impression: Primary Impression: Pathologic acetabular fracture Additional Impression: Stage IV carcinoma of breast Condition: Improved Disposition: Admitted from ER Referrals: KATHRYN ZAMORANO MD (PCP) Problem Qualifiers Primary Impression: Pathologic acetabular fracture Encounter type: subsequent encounter Laterality: right Fracture healing: with malunion Qualified Codes: M84.454P - Pathological fracture, pelvis, subsequent encounter for fracture with malunion Additional Impression: Stage IV carcinoma of breast Laterality: unspecified laterality Qualified Codes: C50.919 - Malignant neoplasm of unspecified site of unspecified female breast DENNIS HAMM DO Sep 13, 2017 18:01
[2017-09-13] MEDS ORDERED: HYDROmorphone* 1 MG/ML 1 MG/ML ML IVP ONE ×2 (18:05→18:45)
[2017-09-13 18:19] LABS: PLATELET COUNT, AUTOMATED 355 K/uL (150-450)
--- NOTE | 2017-09-13 18:56 | RADIOLOGY IMAGING REPORT ---
FACILITY: [facility] PATIENT NAME: Vera Tidwell : 1940 MR: [id number] V: [id number] EXAM DATE: ORDERING PHYSICIAN: DENNIS HAMM TECHNOLOGIST: Location: [facility] [place] Patient: Vera Tidwell : 1940 Visit/Account:[id number] Date of Sevice: 09/13/2017 INDICATION: hx of pathologic fx. DATE: 09/13/2017 6:51 PM. TECHNIQUE: HIP RIGHT COMPARISON: Pelvic CT of August 26, 2017 FINDINGS: Bony metastases are extensive throughout the pelvis and better demonstrated on prior CT. Th ere is continued collapse of the right femoral head which is severely flattened. Associated degenerat alpa findings are severe with fragmentation at the margin of the remaining femoral head. The fragments are similar to the prior study. Degenerative findings are severe within the incompletely imaged lumb ar spine. Moderate degenerative change at the left hip. IMPRESSION: Continued collapse of the right femoral head with associated severe degenerative findings. Report Dictated By: Sommer Rodriguez MD at 09/13/2017 6:51 PM Report E-Signed By: Sommer Rodriguez MD at 09/13/2017 6:54 PM [id number]
[2017-09-13] MEDS ORDERED: POTA20TA94 PO (19:36)
[2017-09-13] MEDS ORDERED: [UNRECOGNIZED DRUG - CODE] PO (19:36)
[2017-09-13 20:20] VITALS: BP 174/93
[2017-09-13] MEDS ORDERED: ACET-1966 PO (20:37)
[2017-09-13] MEDS ORDERED: MORPHINE 10 MG/5 ML UDC PO PRN (20:55)
[2017-09-13] MEDS ORDERED: INFLUENZA VIRUS VAC 0.5 ML SYR IM ONLY ONE (21:00)
--- NOTE | 2017-09-13 21:07 | History & Physical ---
History of Present Illness Chief Complaint Right hip pain History of Present Illness This patient presented to the emergency room with worsening right hip pain. She has a pathologic fracture that has been present since earlier this month. She was discharged last week with home health, but has been having increasing pain over the last several day after falling from bed. Her son reports that he has been having to give her approximately 2.5mg of morphine every hour. History Problems: (1) Stage IV carcinoma of breast (2) Parkinson disease (3) Pathologic acetabular fracture Status: Acute Home Meds Active Scripts Ibuprofen (IBUPROFEN) 600 Mg Tablet, 600 MG PO Q8H Y for PAIN for 30 Days, Prov:DU VO MD 08/30/17 Folic Acid (FOLIC ACID) 1 Mg Tablet, 1 MG PO QDAY, #30 TAB 6 Refills Prov:RU BRADY GAMEMASTER-BC, ONC 07/08/17 Reported Medications Acetaminophen (TYLENOL) 325 Mg Tablet, 1000 MG PO BID, TAB 09/13/17 Pramipexole Di-Hcl (PRAMIPEXOLE DIHYDROCHLORIDE) 0.75 Mg Tablet, 0.75 MG PO 09/13/17 Potassium Chloride (POTASSIUM CHLORIDE) 20 Meq Tab.er.prt, 20 MEQ PO QDAY 09/13/17 Hydrocodone Bit/Acetaminophen (NORCO 10-325 TABLET) 1 Each Tablet, 2 TAB PO Q4H Y for PAIN 09/09/17 Magnesium Citrate (MAGNESIUM CITRATE) 100 Mg Tablet, 1 TAB PO DAILY 06/01/17 Ubidecarenone (COQ-10) 100 Mg Capsule, 2 CAP PO DAILY, CAPSULE 06/01/17 Cholecalciferol (Vitamin D3) (VITAMIN D3) 1,000 Unit Tablet, 1 TAB PO DAILY 10/23/16 Carbidopa/Levodopa (CARBIDOPA-LEVO 25-100 MG ODT) 1 Each Tab.rapdis, 1 EACH PO TID 10/23/16 Discontinued Reported Medications Acetaminophen (TYLENOL EXTRA STRENGTH) 500 Mg Tablet, 1000 MG PO Q8H Y for PAIN , TAB 08/03/17 Pramipexole Di-Hcl (MIRAPEX) 0.75 Mg Tablet, 0.75 MG PO BID 08/02/17 Discontinued Scripts Morphine Sulfate Oral Sln (MORPHINE SULFATE ORAL SLN) 10 Mg/5 Ml Solution, 2.5- 10 MG PO Q1H Y for pain, #100 ML 0 Refills Prov:ALICE ZAMORANO MD 09/09/17 Lidocaine (Lidocaine) 5 % Adh..patch, 1 EACH TP QDAY for 30 Days, Prov:DU VO MD 08/30/17 Diclofenac Sodium 1% Gel (VOLTAREN 1% GEL) 100 Gm Gel..gram., 2 GM TOP QID for 30 Days, #1 TUBE 3 Refills Prov:ALICE ZAMORANO MD 06/26/17 Allergies: Coded Allergies: amantadine (Verified Allergy, Severe, hallucinations and falling, 06/01/17) Sulfa (Sulfonamide Antibiotics) (Verified Allergy, Unknown, 10/23/16) Hx Smoking: No Smoking Status: Never Smoker Exposure to Second Hand Smoke?: No Caffeine Intake: Soda Caffeine/Cups Per Day: 1 diet coke Hx Alcohol Use: No Hx Substance Use Disorder: No Social Drug Use: Never Review of Systems All Systems Reviewed/Normal: Yes, Except as Noted Musculoskeletal: Pain Exam Vital Signs Vital Signs Date Time Temp Pulse Resp B/P (MAP) Pulse Ox O2 Delivery O2 Flow Rate FiO2 09/13/17 20:20 98.4 74 12 174/93 (120) 95 Nasal Cannula 2.0 Neuro: No Gross deficits Eyes: PERRLA Cardiovascular: Regular Rate and Rhythm Respiratory: Clear to Auscultation GI: Abd Soft and Non-Tender Extremities: No Edema Integumentary: No Cyanosis Medical Decision Making Data Points Result Diagram: 09/13/17175709/13/171757 EKG / Imaging Imaging Hip x-ray reviewed. Assessment and Plan Problems: (1) Pathologic acetabular fracture Status: Acute Assessment & Plan: She did present with increased pain in the right hip. Her x -ray reveals further collapse of the fracture since last admission. She has been taking approximately 2.5 mg of morphine solution nearly every hour over the last several days. We will place her on long acting morphine and continue the oral solution for breakthrough pain. (2) Parkinson disease Assessment & Plan: She is on chronic treatment with Sinemet and pramipexole. Copies to: ALICE ZAMORANO MD Venous Thromboembolism Antithrombotics Is Pt On Any Antithrombotics?: Yes Exam Sepsis Risk: No Definite Risk Problem Qualifiers (1) Pathologic acetabular fracture: Encounter type: subsequent encounter Laterality: right Fracture healing: with malunion Qualified Codes: M84.454P - Pathological fracture, pelvis, subsequent encounter for fracture with malunion ADIA CONN DO Sep 13, 2017 21:07
[2017-09-13] MEDS ORDERED: MORP10SO10 PO (22:05)
[2017-09-13] MEDS: PRAMIPEXOLE DIHYDROCHL 0.25 MG PO SCH (22:09)
[2017-09-13] MEDS: MORPHINE CR 15 MG TABCR PO SCH (22:09)
[2017-09-13] MEDS: CARBIDOPA/LEVODOPA 25/100 TAB PO SCH (22:09)
[2017-09-14] VITALS (7 sets, daily range): BP systolic 126–161; BP diastolic 61–99; Ht 152.4 cm; Wt 48.5 kg
--- NOTE | 2017-09-14 08:25 | Hospitalist Progress Note ---
Subjective Progress Notes Subjective She reports almost continuous pain in right hip/leg/knee - even at rest. Transfers are very difficult and painful. Physical Exam Vital Signs Date Time Temp Pulse Resp B/P (MAP) Pulse Ox O2 Delivery O2 Flow Rate FiO2 09/14/17 07:52 97.3 71 16 161/81 (107) 95 Nasal Cannula 1.0 Intake and Output 09/15/17 07:00 # Voids 1 General Appearance: Alert, Awake Neuro: Other (resting tremor) Result Diagram: 09/13/17175709/13/171757 Assessment and Plan Problems: (1) Pathologic acetabular fracture Status: Acute Assessment & Plan: She has been having increased pain in the right hip/leg. Her x-ray reveals further collapse of the fracture since last admission. We have started her on MS Contin 30mg BID and continued her oral solution for breakthrough pain. Will use IV morphine if she has ongoing pain despite the above regimen. We did discuss her options for ongoing care. They have considered Hospice in the past, but decided to try ongoing treatment of her metastatic breast cancer. She would like to further discuss with her family and social work. (2) Parkinson disease Assessment & Plan: She is on chronic treatment with Sinemet and pramipexole. Exam Sepsis Risk: No Definite Risk Problem Qualifiers (1) Pathologic acetabular fracture: Encounter type: subsequent encounter Laterality: right Fracture healing: with malunion Qualified Codes: M84.454P - Pathological fracture, pelvis, subsequent encounter for fracture with malunion BEN PHILLIPS MD Sep 14, 2017 08:25
[2017-09-14] MEDS: PRAMIPEXOLE DIHYDROCHL 0.25 MG PO SCH ×2 (08:45→20:52)
[2017-09-14] MEDS: MORPHINE 10 MG/5 ML UDC PO PRN ×2 (08:45→10:45)
[2017-09-14] MEDS: MORPHINE CR 15 MG TABCR PO SCH ×2 (08:45→20:52)
[2017-09-14] MEDS: ENOXAPARIN 30 MG/0.3 ML SYR SC SCH (08:46)
[2017-09-14] MEDS: MORPHINE 2 MG/ML SYR IVP PRN ×3 (09:06→19:23)
[2017-09-14] MEDS: CARBIDOPA/LEVODOPA 25/100 TAB PO SCH ×3 (10:42→20:53)
--- NOTE | 2017-09-14 15:36 | Medical Nutrition Therapy ---
Nutrition Anthropometrics Height (Inches): 60.00 Height (Calculated Centimeters: [phone] Weight (Pounds): 107 Weight (Calculated Kilograms): 48.534 BMI Calculated: 20.89 Frankie Nutrition Score: Adequate Frankie Nutrition Risk Score: 15 Dietary Referral Nutrition Risk Factors: Unplanned Loss >10lbs Nutrition Risk Comment: Nutritional Diagnosis Nutritional Risk Acuity 2: Head/Neck/GI Cancer (stage 4 breast Ca) Nutritional Risk Acuity 3: Fair Appetite Past Medical History: Past medical history of parkinsons disease, stage IV carcinoma of breast on palliative chemotherapy. Nutritional Acuity: 2-Moderate Nutrition Diagnosis: Increased Nutrient Needs Nutrition Etiology: Physiological Causes Nutrition Problem/Etiology/Sym: AEB dx stage 4 breast Ca with hip fx Energy Requirement: 1400 (M-StJ X 1.3 + AF X 1.2 SF) Protein Requirement: 63 (1.3gm/kg) Fluid Requirement: 1440 (30gm/kg) Diet Type: Diet as Tolerated LINDSEY/REG Nutrition Intervention: Cont diet as ordered, Encourage intake, Between meal supplement Additional Diet Restrictions: OFFER NUT SUPPLEMENT Diet Comment To RSA: ENCOURAGE FLUIDS AND FIBER Nutrition Monitoring & Eval Nutrition Goals: Eat 50-100% Meal RD Patient Assessment Time: 30 minutes Patient Nutrition Acuity: 2-Moderate Follow Up Date: September 17, 2017 Nutritional Comment: 09/14 Pt admitted s/p hip fx. Nursing reporting 10# wt loss past month however wt is actually increased. Pt was 100# on standing scale in cancer center on 08/03 and 102# on bedscle in [facility] on 08/26. Wt may be up r/t fluids. Pt has stage 4 breast Ca. Pt is recieveing morphine. Will encoURage fluids and fiber to help with potential constipation. Alb 3.7 Pt on regular diet and eating 25-75% of meals. Will offer nutr supplement to increase kcal and protein intake. BRANDT DRAKE Sep 14, 2017 15:36
[2017-09-15 03:54] VITALS: BP 143/79
[2017-09-15] MEDS: MORPHINE 2 MG/ML SYR IVP PRN ×6 (04:10→19:40)
[2017-09-15 07:12] VITALS: BP 139/69
[2017-09-15] MEDS ORDERED: BISACODYL 10 MG SUPP PR PRN (07:50)
[2017-09-15] MEDS ORDERED: MAGNESIUM HYDROXIDE* 30ML UDCP PO PRN (07:50)
[2017-09-15] MEDS: ENOXAPARIN 30 MG/0.3 ML SYR SC SCH (08:51)
[2017-09-15] MEDS: MORPHINE CR 15 MG TABCR PO SCH ×2 (08:52→21:03)
[2017-09-15] MEDS: CARBIDOPA/LEVODOPA 25/100 TAB PO SCH ×3 (08:52→21:03)
[2017-09-15] MEDS: PRAMIPEXOLE DIHYDROCHL 0.25 MG PO SCH ×2 (08:52→21:03)
[2017-09-15] MEDS: DOCUSATE SODIUM 100 MG CAP PO SCH ×2 (08:56→21:03)
[2017-09-15] MEDS: POLYETHYLENE GLYCOL 17 GM PKT PO SCH (09:01)
[2017-09-15 10:56] VITALS: BP 119/74
--- NOTE | 2017-09-15 12:29 | Hospitalist Progress Note ---
Subjective Progress Notes Subjective She didn't report any discomfort, but was fairly sleepy this morning. Physical Exam Vital Signs Date Time Temp Pulse Resp B/P (MAP) Pulse Ox O2 Delivery O2 Flow Rate FiO2 09/15/17 10:56 98.5 74 14 119/74 (89) 95 Nasal Cannula 1.0 Intake and Output 09/16/17 07:00 Output Total 1 ml Balance -1 ml Output Urine Total 1 ml # Voids 1 General Appearance: No Acute Distress, Other (Resting comfortably. ) Neuro: Other (Awakens to voice, but falls back asleep fairly quickly.) Integumentary: No Jaundice, No Cyanosis Result Diagram: 09/13/17175709/13/171757 Assessment and Plan Problems: (1) Pathologic acetabular fracture Status: Acute Assessment & Plan: She has been having increased pain in the right hip/leg. Her x-ray reveals further collapse of the fracture since last admission. We have started her on MS Contin 30mg BID and continued her oral solution for breakthrough pain. Will use IV morphine if she has ongoing pain despite the above regimen. Currently, the son, Kevin ALBERTO, wants to continue treatment for the cancer. Looking into having the patient go to [facility] for strengthening and continued cancer treatment. (2) Parkinson disease Assessment & Plan: She is on chronic treatment with Sinemet and pramipexole. Exam Sepsis Risk: No Definite Risk Problem Qualifiers (1) Pathologic acetabular fracture: Encounter type: subsequent encounter Laterality: right Fracture healing: with malunion Qualified Codes: M84.454P - Pathological fracture, pelvis, subsequent encounter for fracture with malunion DU VO MD September 15, 2017 12:29
[2017-09-15 15:15] VITALS: BP 132/67
[2017-09-15 19:46] VITALS: BP 137/72
[2017-09-16 02:50] VITALS: BP 172/86
[2017-09-16] MEDS: MORPHINE 10 MG/5 ML UDC PO PRN ×5 (03:16→23:29)
[2017-09-16 04:26] VITALS: BP 116/60
[2017-09-16 07:46] VITALS: BP 192/80
[2017-09-16] MEDS: POLYETHYLENE GLYCOL 17 GM PKT PO SCH (09:11)
[2017-09-16] MEDS: PRAMIPEXOLE DIHYDROCHL 0.25 MG PO SCH ×2 (09:11→21:11)
[2017-09-16] MEDS: DOCUSATE SODIUM 100 MG CAP PO SCH ×2 (09:11→21:11)
[2017-09-16] MEDS: MORPHINE CR 15 MG TABCR PO SCH ×2 (09:11→21:11)
[2017-09-16] MEDS: ENOXAPARIN 30 MG/0.3 ML SYR SC SCH (09:12)
[2017-09-16] MEDS: CARBIDOPA/LEVODOPA 25/100 TAB PO SCH ×3 (09:12→21:10)
--- NOTE | 2017-09-16 10:22 | Hospitalist Progress Note ---
Subjective Progress Notes Subjective This patient was admitted for a pathologic fracture of the hip. She had no acute events overnight. Patient Complains of: Cardiovascular: No: Chest Pain Respiratory: No: Shortness of Breath Physical Exam Vital Signs Date Time Temp Pulse Resp B/P (MAP) Pulse Ox O2 Delivery O2 Flow Rate FiO2 09/16/17 07:47 93 Nasal Cannula 1.0 09/16/17 07:46 98.7 76 18 192/80 (117) Intake and Output 09/17/17 07:00 Intake Total 0 ml Balance 0 ml Intake Oral 0 ml Cardiovascular: Regular Rate and Rhythm Respiratory: Clear to Auscultation Result Diagram: 09/13/17175709/13/171757 Assessment and Plan Problems: (1) Pathologic acetabular fracture Status: Acute Assessment & Plan: Her x-ray reveals further collapse of the fracture since last admission. We have started her on MS Contin 30mg BID and continued her oral solution for breakthrough pain. She also has IV morphine ordered. Currently , the son, Kevin ALBERTO, wants to continue treatment for the cancer. She may transfer to extended care for ongoing treatment. (2) Parkinson disease Assessment & Plan: She is on chronic treatment with Sinemet and pramipexole. Exam Sepsis Risk: No Definite Risk Problem Qualifiers (1) Pathologic acetabular fracture: Encounter type: subsequent encounter Laterality: right Fracture healing: with malunion Qualified Codes: M84.454P - Pathological fracture, pelvis, subsequent encounter for fracture with malunion ADIA CONN DO September 16, 2017 10:21
[2017-09-16 14:33] VITALS: BP 136/69
[2017-09-16 19:26] VITALS: BP 165/85
[2017-09-16] MEDS: MORPHINE 2 MG/ML SYR IVP PRN (19:53)
[2017-09-16 23:48] VITALS: BP 190/101
[2017-09-17 03:40] VITALS: BP 146/67
[2017-09-17] MEDS: MORPHINE 2 MG/ML SYR IVP PRN ×2 (07:00→10:24)
[2017-09-17] MEDS: DOCUSATE SODIUM 100 MG CAP PO SCH (08:32)
[2017-09-17] MEDS: PRAMIPEXOLE DIHYDROCHL 0.25 MG PO SCH (08:32)
[2017-09-17] MEDS: MORPHINE CR 15 MG TABCR PO SCH (08:33)
[2017-09-17] MEDS: ENOXAPARIN 30 MG/0.3 ML SYR SC SCH (08:33)
[2017-09-17] MEDS: POLYETHYLENE GLYCOL 17 GM PKT PO SCH (08:33)
[2017-09-17] MEDS: CARBIDOPA/LEVODOPA 25/100 TAB PO SCH (08:33)
--- NOTE | 2017-09-17 08:35 | Hospitalist Depart ---
Discharge Summary Reason for Hosp/Final Diag: (1) Pathologic acetabular fracture Status: Acute Hospital Course & Plan: Her x-ray reveals further collapse of the fracture since last admission. We started her on MS Contin 30mg BID and continued her oral solution for breakthrough pain. Currently, the son, Kevin ALBERTO, wants to continue treatment for the cancer. She will transfer to extended care for ongoing treatment. (2) Parkinson disease Hospital Course & Plan: She is on chronic treatment with Sinemet and pramipexole. Departure Latest Vital Signs Vital Signs 09/16/17 09/17/17 23:48 03:40 Temp 97.7 Pulse 63 Resp 16 B/P (MAP) 146/67 (93) Pulse Ox 97 O2 Delivery Nasal Cannula O2 Flow Rate 1.0 Weight (Pounds): 107 Result Diagram: 09/13/17175709/13/171757 Condition: No Change Discharge: PENDING SALE TO [facility] Discharge Instructions Home Meds Active Scripts Ibuprofen (IBUPROFEN) 600 Mg Tablet, 600 MG PO Q8H Y for PAIN for 30 Days, Prov:DU VO MD 08/30/17 Folic Acid (FOLIC ACID) 1 Mg Tablet, 1 MG PO QDAY, #30 TAB 6 Refills Prov:RU BRADY INSPECTOR ALUMINUM BOAT-BC, ONC 07/08/17 Reported Medications Morphine Sulfate Oral Sln (MORPHINE SULFATE ORAL SLN) 10 Mg/5 Ml Solution, 10 MG PO Q1H Y for PAIN, ML 09/13/17 Acetaminophen (TYLENOL) 325 Mg Tablet, 1000 MG PO BID, TAB 09/13/17 Pramipexole Di-Hcl (PRAMIPEXOLE DIHYDROCHLORIDE) 0.75 Mg Tablet, 0.75 MG PO 09/13/17 Potassium Chloride (POTASSIUM CHLORIDE) 20 Meq Tab.er.prt, 20 MEQ PO QDAY 09/13/17 Hydrocodone Bit/Acetaminophen (NORCO 10-325 TABLET) 1 Each Tablet, 2 TAB PO Q4H Y for PAIN 09/09/17 Magnesium Citrate (MAGNESIUM CITRATE) 100 Mg Tablet, 1 TAB PO DAILY 06/01/17 Ubidecarenone (COQ-10) 100 Mg Capsule, 2 CAP PO DAILY, CAPSULE 06/01/17 Cholecalciferol (Vitamin D3) (VITAMIN D3) 1,000 Unit Tablet, 1 TAB PO DAILY 10/23/16 Carbidopa/Levodopa (CARBIDOPA-LEVO 25-100 MG ODT) 1 Each Tab.rapdis, 1 EACH PO TID 10/23/16 Discontinued Reported Medications Acetaminophen (TYLENOL EXTRA STRENGTH) 500 Mg Tablet, 1000 MG PO Q8H Y for PAIN , TAB 08/03/17 Pramipexole Di-Hcl (MIRAPEX) 0.75 Mg Tablet, 0.75 MG PO BID 08/02/17 Discontinued Scripts Morphine Sulfate Oral Sln (MORPHINE SULFATE ORAL SLN) 10 Mg/5 Ml Solution, 2.5- 10 MG PO Q1H Y for pain, #100 ML 0 Refills Prov:ALICE ZAMORANO MD 09/09/17 Lidocaine (Lidocaine) 5 % Adh..patch, 1 EACH TP QDAY for 30 Days, Prov:DU VO MD 08/30/17 Diclofenac Sodium 1% Gel (VOLTAREN 1% GEL) 100 Gm Gel..gram., 2 GM TOP QID for 30 Days, #1 TUBE 3 Refills Prov:ALICE ZAMORANO MD 06/26/17 Diet: Regular Activity: As Tolerated Copies to: ALICE ZAMORANO MD Venous Thromboembolism Antithrombotics Is Pt On Any Antithrombotics?: Yes Problem Qualifiers (1) Pathologic acetabular fracture: Encounter type: subsequent encounter Laterality: right Fracture healing: with malunion Qualified Codes: M84.454P - Pathological fracture, pelvis, subsequent encounter for fracture with malunion COURT WEBB INSPECTOR ALUMINUM BOAT September 17, 2017 08:35
[2017-09-17 09:44] VITALS: BP 116/63
== END 2017-09-17 08:32 ==
LOC: ER 18:05 → MED 19:47 → INTOOBSV 19:47
PROVIDERS: ADMIT Family Medicine; ATTEND Family Medicine
DX: M84.45 Pathological fracture, femur and pelvis (principal); C50.919 Malignant neoplasm of unspecified site of unspecified female breast; G20 Parkinson's disease
CPT/HCPCS: 73502; 81001; 85025; 96372; 99284; A4353; A9270; G0378; J1170; J1650; J2270; 82040; 82247; 82310; 82374; 82435; 82565; 82947; 84075; 84132; 84155; 84295; 84450; 84460; 84520

== ENCOUNTER → 2017-09-13 | Outpatient (CLI) | payer MEDICARE, BC ==
[~2017-09-13] MED LIST changes: +ACET-1966 PO; +BISA10SU66 PR; +DOCU-202 PO; +MORP-20 PO; +POLY17PO21 PO; +POTA20TA94 PO; +PROC-5 PO; -PROC10TA95 PO; +[UNRECOGNIZED DRUG - CODE] PO
[2017-09-18 08:21] VITALS: BMI 20.9
== END ==
LOC: AMB 17:30
PROVIDERS: ATTEND Nurse Practitioner
DX: M25.551 Pain in right hip (principal)
CPT/HCPCS: A0425; A0427

== ENCOUNTER 2017-09-17 10:40 | Inpatient (IN) | payer MEDICARE, BC ==
[~2017-09-17] VITALS: Ht 152.4 cm; Wt 44.9 kg
[~2017-09-17 10:40] MED LIST changes: +ACET-1966 PO; +POTA20TA94 PO; +PROC-5 PO; -PROC10TA95 PO; +[UNRECOGNIZED DRUG - CODE] PO
[2017-09-17] MEDS ORDERED: MAGNESIUM HYDROXIDE* 30ML UDCP PO PRN (10:56)
[2017-09-17] MEDS ORDERED: BISACODYL 10 MG SUPP PR PRN (10:56)
[2017-09-17 11:04] VITALS: BP 124/59
--- NOTE | 2017-09-17 11:23 | ECF H&P BLANK ---
[facility] H&P UPDATE History of Present Illness Chief Complaint Right hip pain History of Present Illness This patient presented to the emergency room with worsening right hip pain. She has a pathologic fracture that has been present since earlier this month. She was discharged last week with home health, but has been having increasing pain over the last several day after falling from bed. Her son reports that he has been having to give her approximately 2.5mg of morphine every hour. History Problems: (1) Stage IV carcinoma of breast (2) Parkinson disease (3) Pathologic acetabular fracture Status: Acute Home Meds Active Scripts Ibuprofen (IBUPROFEN) 600 Mg Tablet, 600 MG PO Q8H Y for PAIN for 30 Days, Prov:DU VO MD 08/30/17 Folic Acid (FOLIC ACID) 1 Mg Tablet, 1 MG PO QDAY, #30 TAB 6 Refills Prov:RU BRADY PHYSICIAN OFFICE REP-BC, ONC 07/08/17 Reported Medications Acetaminophen (TYLENOL) 325 Mg Tablet, 1000 MG PO BID, TAB 09/13/17 Pramipexole Di-Hcl (PRAMIPEXOLE DIHYDROCHLORIDE) 0.75 Mg Tablet, 0.75 MG PO 09/13/17 Potassium Chloride (POTASSIUM CHLORIDE) 20 Meq Tab.er.prt, 20 MEQ PO QDAY 09/13/17 Hydrocodone Bit/Acetaminophen (NORCO 10-325 TABLET) 1 Each Tablet, 2 TAB PO Q4H Y for PAIN 09/09/17 Magnesium Citrate (MAGNESIUM CITRATE) 100 Mg Tablet, 1 TAB PO DAILY 06/01/17 Ubidecarenone (COQ-10) 100 Mg Capsule, 2 CAP PO DAILY, CAPSULE 06/01/17 Cholecalciferol (Vitamin D3) (VITAMIN D3) 1,000 Unit Tablet, 1 TAB PO DAILY 10/23/16 Carbidopa/Levodopa (CARBIDOPA-LEVO 25-100 MG ODT) 1 Each Tab.rapdis, 1 EACH PO TID 10/23/16 Discontinued Reported Medications Acetaminophen (TYLENOL EXTRA STRENGTH) 500 Mg Tablet, 1000 MG PO Q8H Y for PAIN , TAB 08/03/17 Pramipexole Di-Hcl (MIRAPEX) 0.75 Mg Tablet, 0.75 MG PO BID 08/02/17 Discontinued Scripts Morphine Sulfate Oral Sln (MORPHINE SULFATE ORAL SLN) 10 Mg/5 Ml Solution, 2.5- 10 MG PO Q1H Y for pain, #100 ML 0 Refills Prov:ALICE ZAMORANO MD 09/09/17 Lidocaine (Lidocaine) 5 % Adh..patch, 1 EACH TP QDAY for 30 Days, Prov:DU VO MD 08/30/17 Diclofenac Sodium 1% Gel (VOLTAREN 1% GEL) 100 Gm Gel..gram., 2 GM TOP QID for 30 Days, #1 TUBE 3 Refills Prov:ALICE ZAMORANO MD 06/26/17 Allergies: Coded Allergies: amantadine (Verified Allergy, Severe, hallucinations and falling, 06/01/17) Sulfa (Sulfonamide Antibiotics) (Verified Allergy, Unknown, 10/23/16) Hx Smoking: No Smoking Status: Never Smoker Exposure to Second Hand Smoke?: No Caffeine Intake: Soda Caffeine/Cups Per Day: 1 diet coke Hx Alcohol Use: No Hx Substance Use Disorder: No Social Drug Use: Never Review of Systems All Systems Reviewed/Normal: Yes, Except as Noted Musculoskeletal: Pain Exam Vital Signs Vital Signs Date Time Temp Pulse Resp B/P (MAP) Pulse Ox O2 Delivery O2 Flow Rate FiO2 09/13/17 20:20 98.4 74 12 174/93 (120) 95 Nasal Cannula 2.0 Neuro: No Gross deficits Eyes: PERRLA Cardiovascular: Regular Rate and Rhythm Respiratory: Clear to Auscultation GI: Abd Soft and Non-Tender Extremities: No Edema Integumentary: No Cyanosis Medical Decision Making Data Points Result Diagram: 09/13/17175709/13/171757 EKG / Imaging Imaging Hip x-ray reviewed. Assessment and Plan Problems: (1) Pathologic acetabular fracture Status: Acute Assessment & Plan: She did present with increased pain in the right hip. Her x -ray reveals further collapse of the fracture since last admission. She has been taking approximately 2.5 mg of morphine solution nearly every hour over the last several days. We will place her on long acting morphine and continue the oral solution for breakthrough pain. (2) Parkinson disease Assessment & Plan: She is on chronic treatment with Sinemet and pramipexole. Copies to: ALICE ZAMORANO MD Venous Thromboembolism Antithrombotics Is Pt On Any Antithrombotics?: Yes Exam Sepsis Risk: No Definite Risk Problem Qualifiers (1) Pathologic acetabular fracture: Encounter type: subsequent encounter Laterality: right Fracture healing: with malunion Qualified Codes: M84.454P - Pathological fracture, pelvis, subsequent encounter for fracture with malunion ADIA CONN DO Sep 13, 2017 21:07 <Electronically signed by ADIA CONN DO> D/ 06 06 06 EDIE/OBED CC: ALICE ZAMORANO MD, CANDACE M FNP September 17, 2017 11:23
--- NOTE | 2017-09-17 12:01 | Consultant Pharmacy Review ---
Combat Systems Officer Review Medication Review Do All Mecications have a Diag: Yes Other General Cautions Lexicomp Interaction Analysis A = No known interaction C = Monitor therapy X = Avoid combination B = No action needed D = Consider therapy modification Drugs in this analysis: Bisacodyl; Docusate Sodium (SYN); Lovenox; Milk of Magnesia [OTC]; MiraLax [OTC]; Mirapex; MS Contin; Sinemet * Drug-Drug Interactions D Bisacodyl Milk of Magnesia [OTC] (Antacids) C Mirapex (Blood Pressure Lowering Agents) Sinemet (Levodopa) C Mirapex (Pramipexole) MS Contin (BRIM POUNCING MACHINE OPERATOR Depressants) C MS Contin (Blood Pressure Lowering Agents) Sinemet (Levodopa) Pneumococcal Vaccine HX Pneumo Vac (Cngphii24): Yes HX Pneumo Vac (Pneumovax): Yes Comments Regarding the Review Monitor patient for falls due to morphine use for her metastatic cancer. Patient is up-to-date on her pneumoccocal vaccinations. CLARICE VIVAR September 17, 2017 12:01
[2017-09-17] MEDS: CARBIDOPA/LEVODOPA 25/100 TAB PO SCH ×2 (13:29→20:24)
[2017-09-17] MEDS: MORPHINE 10 MG/5 ML UDC PO PRN ×3 (13:29→19:24)
[2017-09-17 15:40] VITALS: BP 170/84
[2017-09-17] MEDS: PRAMIPEXOLE DIHYDROCHL 0.25 MG PO SCH (20:24)
[2017-09-17] MEDS: MORPHINE CR 15 MG TABCR PO SCH (20:24)
[2017-09-17] MEDS: DOCUSATE SODIUM 100 MG CAP PO SCH (20:24)
[2017-09-18] MEDS: MORPHINE 10 MG/5 ML UDC PO PRN ×7 (01:14→21:07)
[2017-09-18 08:00] VITALS: BP 120/49
[2017-09-18 08:21] VITALS: Ht 152.4 cm; Wt 44.9 kg
[2017-09-18] MEDS: PRAMIPEXOLE DIHYDROCHL 0.25 MG PO SCH ×2 (08:57→21:07)
[2017-09-18] MEDS: CARBIDOPA/LEVODOPA 25/100 TAB PO SCH ×3 (08:57→21:07)
[2017-09-18] MEDS: DOCUSATE SODIUM 100 MG CAP PO SCH ×2 (08:57→21:07)
[2017-09-18] MEDS: MORPHINE CR 15 MG TABCR PO SCH ×2 (08:57→21:07)
[2017-09-18] MEDS: POLYETHYLENE GLYCOL 17 GM PKT PO SCH (08:57)
[2017-09-18] MEDS: ENOXAPARIN 30 MG/0.3 ML SYR SC SCH (08:57)
--- NOTE | 2017-09-18 09:16 | PT ECF NOTE ---
Type of Note: Initial Note Primary Medical Diagnosis: Pathologic acetabular fracture, breast cancer with mets (NWB R) LE) Physical Therapy Evaluation Date: 09/17/17 SUBJECTIVE: Prior Hospitalization: [facility] Prior Level of Function: The patient was intermittently confused throughout evaluation, she was oriented to self and date, but not to situation. The patient reports that her son and daughter in law live with her. She reports a ramp to access the home with all needs on one level. It appears from EMR review that the pt's son was assisting the patient with stand pivot transfers to/from w /c prior to most recent admission. Prior Living Status: Single level house, Living with family, Assist by family Community Services: Home health jail Accessibility: Ramp, All needs on one level Equipment Owned: Front wheeled walker, Wheelchair Medical Complications/Past Medical History: Breast cancer with metastasis, Parkinson's, see EMR for details Psychosocial Support: Supportive son and daughter in law Pain Scale (0-10): 3/10 at rest OBJECTIVE: Strength: Right Lower Extremity:NT d/t extreme pain when seated and acetabular fx Left Lower Extremity:NT d/t extreme pain when seated ROM: (please note any abnormalities) R) LE limited by acetabular fx Sensation: (please note any abnormalities) no abnormalities noted Other Neuro findings: diagnosis of Parkinson's disease Bed Mobility: Max A x 2 Transfers: Min-modA x2 with EZ lift, one person dedicated to maintaining NWB of R) LE Gait: Pt unable Stairs: N/A Timed Up and Go (>12 seconds indicated increased risk for falls): Pt unable 10 meter walk test (0.6m/second cannot function independently): Pt unable ASSESSMENT: PT/OT co eval complete. The patient was intermittently confused throughout evaluation, she was oriented to self and date, but not to situation. The patient reports that her son and daughter in law live with her. She reports a ramp to access the home with all needs on one level. It appears from EMR review that the pt's son was assisting the patient with transfers to/from w/c prior to most recent admission. When asked what the patient's goal is, she reports "I don't want to , I want to go home" Pt requires maxAx2 for bed mobiltiy with increased pain reported in R) hip. PT and OT instructed patient in use of EZ lift to rise to standing position. Pt requires 1 person modA at R) LE to maintain NWB status of the R) LE, but demonstrated need for Gilberto to rise to stand at gait belt. Pt stood in EZ lift x3 minutes with increased pain reported. It is unclear at this time the level of assistance that the patient's family will be able to provide upon d/c home. She may need prison care upon d /c. Problem List/Current Limitations: Pain Decreased WB Decreased activity zev Decreased strength Decreased ROM Decreased balance Confusion Short Term Goals: 1: Pt to complete bed mobility with modA x1 2: Pt to complete transfers with modA x1 and least restrictive AD 3: Pt's family/caregivers to be trained on assisting patient in functional transfers 4: Pt's family to obtain necessary equipment prior to d/c Alf Goals: Pt to d/c to safest d/c location in order to achieve personal goals Patient Goals: "I want to go home" Rehabilitation Prognosis: Poor Barriers for Discharge: Extreme pain with all mobility, R) hip acetabular fx causing NWB status, level of assistance available at home PLAN: The patient will benefit from skilled physical therapy services 5 times per week for 2 weeks including: Therapeutic Exercise Therapeutic Activities Transfer Training Manual Therapy ADL's Safety Training Neuromuscular Re-educ. Pt/Caregiver Training Bed Mobility Thank you for this referral. If you have any questions, concerns, or comments about this report or plan, please contact me at . Rosa Cohen, PT, DPT [facility]
--- NOTE | 2017-09-18 09:33 | OT ECF NOTE ---
Type of Note: Initial Note Primary Medical Diagnosis: Pathological right acetabular fracture, breast cancer with mets to bones *NWB R LE* Occupational Therapy Evaluation Date: 09/17/17 SUBJECTIVE: Prior Hospitalization: [facility] 08/26/17 thru 08/30/17 and [facility] 09/13/17 thru 09/17/17 Prior Level of Function: Pt oriented to self and date with intermittent confusion throughout evaluation. Pt reports her son and [id number] reside with her and assist for all ADLs/IADLs. Pt reports her sons are very strong and transfer her from bed to wheelchair. Pt has significant discomfort with sitting and transfers. Prior Living Status: Single level house, Living with family Community Services: Home health half-way Accessibility: Ramp All needs on one level Walk-in shower Equipment Owned: Rollator Wheelchair Hospital bed that is not set up Medical Complications/Past Medical History: Parkinson's, Stage IV breast cancer with mets to bones Psychosocial Support: Supportive family in [place] Pain Scale (0-10): Pt reporting significant pain in R hip and L foot throughout evaluation. Frequently grimacing and squirming when supine in bed secondary to pain. Ice and emotional support provided. OBJECTIVE: Strength: MMT: Right Left Shoulder Flexion N/T N/T Elbow Flexion N/T N/T Wrist Extension N/T N/T Cleaning And Washing Equipment Operator N/T N/T (5= normal, 4= good, 3= fair, 2= poor, 1= trace) ROM: Both upper extremities, Minimally limited Functional Transfer: Assistive Device: EZ/Patient assisted lift Transfer Ability: Moderate assistance-Maximum assistance, 2-person assist to maintain NWB R LE ADL: Upper body dressing: Assistive device: Upper body dressing ability: N/T Lower body dressing: Assistive device: Lower body dressing ability: Total assistance donning socks Toileting: Assistive device: Incontinent of urine Toileting ability: Total assistance Grooming/hygiene: Assistive device: Grooming ability: N/T Bathing: Assistive device: Bathing ability: N/T Standardized Assessment: Emily Index of Activities of Daily Livin/20 upon initial evaluation (09/18/17). ASSESSMENT: Vera presents to [facility] with significant pain limiting (I) with ADLs and functional transfers. At [facility], her family was providing significant assist for all ADLs/IADLs/functional transfers. Vera will benefit from skilled OT services to improve tolerance for ADLs and receive patient/family education in order to promote a safe discharge plan. Problem List/Current Limitations: Pain Decreased WB Decreased activity tolerance Generalized weakness Confusion Short Term Goals: 1) Pt will be Mod A toilet task. 2) Pt will be Mod A UB/LB dressing. 3) Pt Emily Index of ADLs score will improve by 2 points. 4) Pt and family will be educated on appropriate AE recommendations. 5) Pt will be set-up A grooming/hygiene. Client Services Specialist Goals: Promote patient and family education in order to provide a safe discharge plan in accordance with patient and family goals. Patient Goals: "I want to go home and live" Rehabilitation Prognosis: Poor Barriers to Discharge: Medical history, pain, PLOF with significant assist from family for all ADLs/IADLs PLAN: The patient will benefit from skilled occupational therapy services 5 times per week for 2 weeks including: Ther ex ADL training Safety training Ther act IADL training Transfer training Adaptive equip training Bed mobility Energy conservation Thank you for this referral. If you have any questions, concerns, or comments about this report or plan, please contact me at . Brenda Canales MS, OTR/L Occupational Therapist [facility]
[2017-09-18 16:39] VITALS: BP 151/79
[2017-09-19] MEDS: MORPHINE 10 MG/5 ML UDC PO PRN ×8 (03:32→22:34)
[2017-09-19 08:02] VITALS: BP 161/73
[2017-09-19] MEDS: CARBIDOPA/LEVODOPA 25/100 TAB PO SCH ×3 (09:05→21:00)
[2017-09-19] MEDS: ENOXAPARIN 30 MG/0.3 ML SYR SC SCH (09:05)
[2017-09-19] MEDS: DOCUSATE SODIUM 100 MG CAP PO SCH ×2 (09:05→21:00)
[2017-09-19] MEDS: MORPHINE CR 15 MG TABCR PO SCH ×2 (09:05→20:59)
[2017-09-19] MEDS: PRAMIPEXOLE DIHYDROCHL 0.25 MG PO SCH ×2 (09:05→21:00)
[2017-09-19] MEDS: POLYETHYLENE GLYCOL 17 GM PKT PO SCH (09:06)
[2017-09-19 16:00] VITALS: BP 131/77
[2017-09-20] MEDS: MORPHINE 10 MG/5 ML UDC PO PRN ×6 (02:09→20:41)
[2017-09-20 08:43] VITALS: BP 161/77
[2017-09-20] MEDS: CARBIDOPA/LEVODOPA 25/100 TAB PO SCH ×3 (08:51→20:41)
[2017-09-20] MEDS: MORPHINE CR 15 MG TABCR PO SCH ×2 (08:51→20:41)
[2017-09-20] MEDS: DOCUSATE SODIUM 100 MG CAP PO SCH ×2 (08:51→20:41)
[2017-09-20] MEDS: ENOXAPARIN 30 MG/0.3 ML SYR SC SCH (08:51)
[2017-09-20] MEDS: PRAMIPEXOLE DIHYDROCHL 0.25 MG PO SCH ×2 (08:52→20:41)
[2017-09-20] MEDS: POLYETHYLENE GLYCOL 17 GM PKT PO SCH (08:53)
[2017-09-20 17:05] VITALS: BP 170/82
[2017-09-21] MEDS: MORPHINE 10 MG/5 ML UDC PO PRN ×9 (02:07→22:32)
[2017-09-21] MEDS: ENOXAPARIN 30 MG/0.3 ML SYR SC SCH (08:53)
[2017-09-21] MEDS: MORPHINE CR 15 MG TABCR PO SCH ×2 (08:54→20:24)
[2017-09-21] MEDS: PRAMIPEXOLE DIHYDROCHL 0.25 MG PO SCH ×2 (08:54→20:24)
[2017-09-21] MEDS: CARBIDOPA/LEVODOPA 25/100 TAB PO SCH ×3 (08:54→20:24)
[2017-09-21] MEDS: DOCUSATE SODIUM 100 MG CAP PO SCH ×2 (08:54→20:24)
[2017-09-21 09:00] VITALS: BP 152/69
[2017-09-21] MEDS: POLYETHYLENE GLYCOL 17 GM PKT PO SCH (09:00)
--- NOTE | 2017-09-21 15:30 | Medical Nutrition Therapy ---
Nutrition Anthropometrics Height (Inches): 60.00 Height (Calculated Centimeters: 152.409645 Weight (Pounds): 99 Weight (Calculated Kilograms): 44.906 BMI Calculated: 20.89 Hx Weight Loss: Yes Hx Weight Gain: No Frankie Nutrition Score: Probably Inadequate Frankie Nutrition Risk Score: 13 Dietary Referral Nutrition Risk Factors: Unplanned Loss >10lbs Nutrition Risk Comment: Nutrition/Food History Poor (Consuming 0-25% meals. ) Skipped Meals: Yes (Refuses meals. 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 Nutritional Acuity: 2-Moderate Nutrition Diagnosis: Involuntary Wt. Loss Nutrition Etiology: Inadeq. Food/Kae Intake Nutrition Problem/Etiology/Sym: Involuntary wt. loss r/t inadequate food and beverage intake AEB wt loss of 8lbs since admission. Energy Requirement: 1337 ([address] 857 X 1.3 (AF) X 1.2 (SF) = 1336.8 kcal) Protein Requirement: 40 (.9 g/kg X wt kg. 44.906) Fluid Requirement: 1123 (>75 yrs 25 ml/kg 25ml X wt. kg 44.906) Diet Type: Diet as Tolerated LINDSEY/REG Nutrition Intervention: Between meal supplement, Incr diet as tolerated Nutritional Needs Comment: OFFER NUTRITION SUPPLEMENT BETWEEN MEALS Food Likes: Pears, Carrots Food Dislikes: apple juice does not set well with her... Nutrition Monitoring & Eval Nutrition Goals: Drink > 1200 cc/day Nutrition Follow-Up: Poor Intake RD Patient Assessment Time: [address] Assessment Type: RD Assessment Patient Nutrition Acuity: 2-Moderate Follow Up Date: September 20, 2017 Nutritional Comment: 09/18: Pt admitted for hip pain and weakness. Pt was discharged last week, however is experincing pain in her right hip. Upon admission pt was found on floor next to her bed, putting her at a fall risk. Pt has stage 4 breast cancer and hx of hip fractures. Pt continues to take morphine for pain. Pt random BG was elevated 114 (fasting), alb 3.7, elevated BUN 25, and tropornin 1 0.012. Nurse notes offered protein shake, however pt refused due to not feeling well. Meal consumption not recorded. Continue to monitor and encourage food consumption, nutrition supplement in between meals and fluids to help prevent constipation. 09/21: Pt continues to experince pain in her hip. Pt is a high fall risk and is a 2X person assist when transfering. Pt is working with OT in hopes of returning home safe. Pt has had a 5% involuntary wt loss since admission. Pt is only consuming 0-25% of her meals and has refused meals/ snacks during her time in [facility]. There are no new labs recorded at this time. Continue to monitor pt wt and food intake and encourage nutriton supplements between meals to help pt meet nutritional needs. CLEMENTE LYNNSANKET September 21, 2017 08:59
[2017-09-21 15:42] VITALS: BP 137/78
[2017-09-22] MEDS: MORPHINE 10 MG/5 ML UDC PO PRN ×6 (05:29→21:40)
[2017-09-22 07:25] VITALS: BP 132/76
[2017-09-22] MEDS: ENOXAPARIN 30 MG/0.3 ML SYR SC SCH (08:38)
[2017-09-22] MEDS: DOCUSATE SODIUM 100 MG CAP PO SCH ×2 (08:38→20:27)
[2017-09-22] MEDS: CARBIDOPA/LEVODOPA 25/100 TAB PO SCH ×3 (08:38→20:27)
[2017-09-22] MEDS: MORPHINE CR 15 MG TABCR PO SCH ×2 (08:38→20:27)
[2017-09-22] MEDS: PRAMIPEXOLE DIHYDROCHL 0.25 MG PO SCH ×2 (08:39→20:27)
[2017-09-22] MEDS: POLYETHYLENE GLYCOL 17 GM PKT PO SCH (08:39)
[2017-09-22] MEDS ORDERED: ONDANSETRON 4 MG ODT TABDP SL PRN (10:50)
--- NOTE | 2017-09-22 12:57 | Medical Nutrition Therapy ---
Nutrition Monitoring & Eval RD Patient Assessment Time: [address] Assessment Type: RD Assessment Patient Nutrition Acuity: 2-Moderate Follow Up Date: September 28, 2017 Nutritional Comment: 09/18: Pt admitted for hip pain and weakness. Pt was discharged last week, however is experincing pain in her right hip. Upon admission pt was found on floor next to her bed, putting her at a fall risk. Pt has stage 4 breast cancer and hx of hip fractures. Pt continues to take morphine for pain. Pt random BG was elevated 114 (fasting), alb 3.7, elevated BUN 25, and tropornin 1 0.012. Nurse notes offered protein shake, however pt refused due to not feeling well. Meal consumption not recorded. Continue to monitor and encourage food consumption, nutrition supplement in between meals and fluids to help prevent constipation. 09/21: Pt continues to experince pain in her hip. Pt is a high fall risk and is a 2X person assist when transfering. Pt is working with OT in hopes of returning home safe. Pt has had a 5% involuntary wt loss since admission. Pt is only consuming 0-25% of her meals and has refused meals/ snacks during her time in [facility]. There are no new labs recorded at this time. Continue to monitor pt wt and food intake and encourage nutriton supplements between meals to help pt meet nutritional needs. BRANDT LOUISE September 22, 2017 12:57
[2017-09-22 16:40] VITALS: BP 146/82
[2017-09-23] MEDS: MORPHINE 10 MG/5 ML UDC PO PRN ×6 (00:32→23:56)
[2017-09-23 07:33] VITALS: BP 112/69
--- NOTE | 2017-09-23 07:49 | Hospitalist Progress Note ---
Subjective Progress Notes Subjective This patient remains on ECF for a pathologic hip fracture. 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 Patient Complains of: Cardiovascular: No: Chest Pain Respiratory: No: Shortness of Breath Physical Exam Vital Signs Date Time Temp Pulse Resp B/P (MAP) Pulse Ox O2 Delivery O2 Flow Rate FiO2 09/23/17 03:59 95 Nasal Cannula 3.0 09/22/17 16:40 98.9 80 20 146/82 (103) Cardiovascular: Regular Rate and Rhythm Respiratory: Clear to Auscultation Assessment and Plan Problems: (1) Pathologic acetabular fracture Status: Acute Assessment & Plan: She continues to receive care through the cancer center and her son is exploring other treatment options in [place]. Her pain is under better control with MS Contin and Roxanol. (2) Stage IV carcinoma of breast (3) Parkinson disease Assessment & Plan: She is on chronic treatment with Sinemet and Mirapex. ADIA CONN DO September 23, 2017 07:49
[2017-09-23] MEDS: CARBIDOPA/LEVODOPA 25/100 TAB PO SCH ×3 (08:51→20:53)
[2017-09-23] MEDS: POLYETHYLENE GLYCOL 17 GM PKT PO SCH (08:52)
[2017-09-23] MEDS: PRAMIPEXOLE DIHYDROCHL 0.25 MG PO SCH ×2 (08:53→20:53)
[2017-09-23] MEDS: MORPHINE CR 15 MG TABCR PO SCH ×2 (08:53→20:53)
[2017-09-23] MEDS: ENOXAPARIN 30 MG/0.3 ML SYR SC SCH (08:53)
[2017-09-23] MEDS: DOCUSATE SODIUM 100 MG CAP PO SCH ×2 (08:53→20:52)
[2017-09-23 16:20] VITALS: BP 129/77
[2017-09-23] MEDS: ACETAMINOPHEN 500 MG TAB PO SCH ×2 (16:51→20:52)
[2017-09-24] MEDS: MORPHINE 10 MG/5 ML UDC PO PRN ×6 (00:46→23:27)
[2017-09-24 09:00] VITALS: BP 141/83
[2017-09-24] MEDS: DOCUSATE SODIUM 100 MG CAP PO SCH ×2 (09:09→20:34)
[2017-09-24] MEDS: LIDOCAINE 5% PATCH TP SCH (09:09)
[2017-09-24] MEDS: POLYETHYLENE GLYCOL 17 GM PKT PO SCH (09:09)
[2017-09-24] MEDS: PRAMIPEXOLE DIHYDROCHL 0.25 MG PO SCH ×2 (09:10→20:34)
[2017-09-24] MEDS: MORPHINE CR 15 MG TABCR PO SCH ×2 (09:10→20:34)
[2017-09-24] MEDS: CARBIDOPA/LEVODOPA 25/100 TAB PO SCH ×3 (09:10→20:34)
[2017-09-24] MEDS: ENOXAPARIN 30 MG/0.3 ML SYR SC SCH (09:10)
[2017-09-24] MEDS: ACETAMINOPHEN 500 MG TAB PO SCH ×3 (09:10→20:34)
[2017-09-24 15:40] VITALS: BP 122/71
[2017-09-24] MEDS ORDERED: PATCH REMOVAL 1 EA TP SCH (21:00)
[2017-09-25] MEDS: MORPHINE 10 MG/5 ML UDC PO PRN ×3 (00:33→12:40)
[2017-09-25 08:00] VITALS: BP 162/91
[2017-09-25] MEDS: POLYETHYLENE GLYCOL 17 GM PKT PO SCH (09:14)
[2017-09-25] MEDS: MORPHINE CR 15 MG TABCR PO SCH (09:15)
[2017-09-25] MEDS: ENOXAPARIN 30 MG/0.3 ML SYR SC SCH (09:15)
[2017-09-25] MEDS: CARBIDOPA/LEVODOPA 25/100 TAB PO SCH (09:15)
[2017-09-25] MEDS: ACETAMINOPHEN 500 MG TAB PO SCH (09:15)
[2017-09-25] MEDS: PRAMIPEXOLE DIHYDROCHL 0.25 MG PO SCH (09:15)
[2017-09-25] MEDS: DOCUSATE SODIUM 100 MG CAP PO SCH (09:15)
[2017-09-25] MEDS: LIDOCAINE 5% PATCH TP SCH (09:16)
[2017-09-25] MEDS ORDERED: POLY17PO21 PO (10:08)
[2017-09-25] MEDS ORDERED: DOCU-202 PO (10:08)
[2017-09-25] MEDS ORDERED: LIDO700A19 TP (10:08)
[2017-09-25] MEDS ORDERED: MORP10SO10 PO (10:08)
[2017-09-25] MEDS ORDERED: MORP-20 PO (10:08)
[2017-09-25] MEDS ORDERED: BISA10SU66 PR (10:08)
--- NOTE | 2017-09-25 10:11 | Hospitalist Depart ---
Discharge Summary Reason for Hosp/Final Diag: (1) Pathologic acetabular fracture Status: Acute Hospital Course & Plan: Her pain is under better control with MS Contin and Roxanol. (2) Stage IV carcinoma of breast (3) Parkinson disease Hospital Course & Plan: She is on chronic treatment with Sinemet and Mirapex. Departure Latest Vital Signs Vital Signs 09/25/17 08:00 Temp 98.5 Pulse 89 Resp 16 B/P (MAP) 162/91 (114) Pulse Ox 95 O2 Delivery Nasal Cannula O2 Flow Rate 3.0 Weight (Pounds): 99 Condition: Improved Discharge: Home Health PT/OT Follow Up For: PT Evaluation and Treat, OT Evaluation and Treat Home Health RN Follow Up For: Nursing Assessment Discharge Code Status: DNR, DNI Discharge Instructions Home Meds Active Scripts Polyethylene Glycol 3350 (POLYETHYLENE GLYCOL 3350) 17 Gm Powd.pack, 17 GM PO QDAY, #30 PACKET Prov:ADIA CONN DO 09/25/17 Morphine Sulfate Oral Sln (MORPHINE SULFATE ORAL SLN) 10 Mg/5 Ml Solution, 5-10 MG PO Q1H Y for PAIN, #120 ML Prov:ADIA CONN DO 09/25/17 Morphine Sulfate 15 Mg Er Tab (MORPHINE SULFATE 15 MG ER TAB) 15 Mg Tablet.er, 30 MG PO Q12H, #60 TAB Prov:ADIA CONN DO 09/25/17 Lidocaine (Lidocaine) 5 % Adh..patch, 1 EACH TP QDAY, #30 TAB Prov:ADIA CONN DO 09/25/17 Docusate Sodium (DOCUSATE SODIUM) 100 Mg Capsule, 100 MG PO BID, #60 CAPSULE Prov:ADIA CONN DO 09/25/17 Bisacodyl (BISAC-EVAC) 10 Mg Supp.rect, 10 MG OK QDAY Y for CONSTIPATION, #1 SUPP.RECT Prov:ADIA CONN DO 09/25/17 Folic Acid (FOLIC ACID) 1 Mg Tablet, 1 MG PO QDAY, #30 TAB 6 Refills Prov:RU BRADY ORDNANCE MECHANIC-BC, ONC 07/08/17 Reported Medications Acetaminophen (TYLENOL) 325 Mg Tablet, 1000 MG PO BID, TAB 09/13/17 Pramipexole Di-Hcl (PRAMIPEXOLE DIHYDROCHLORIDE) 0.75 Mg Tablet, 0.75 MG PO 09/13/17 Cholecalciferol (Vitamin D3) (VITAMIN D3) 1,000 Unit Tablet, 1 TAB PO DAILY 10/23/16 Carbidopa/Levodopa (CARBIDOPA-LEVO 25-100 MG ODT) 1 Each Tab.rapdis, 1 EACH PO TID 10/23/16 Discontinued Reported Medications Morphine Sulfate Oral Sln (MORPHINE SULFATE ORAL SLN) 10 Mg/5 Ml Solution, 10 MG PO Q1H Y for PAIN, ML 09/13/17 Potassium Chloride (POTASSIUM CHLORIDE) 20 Meq Tab.er.prt, 20 MEQ PO QDAY 09/13/17 Hydrocodone Bit/Acetaminophen (NORCO 10-325 TABLET) 1 Each Tablet, 2 TAB PO Q4H Y for PAIN 09/09/17 Magnesium Citrate (MAGNESIUM CITRATE) 100 Mg Tablet, 1 TAB PO DAILY 06/01/17 Ubidecarenone (COQ-10) 100 Mg Capsule, 2 CAP PO DAILY, CAPSULE 06/01/17 Discontinued Scripts Ibuprofen (IBUPROFEN) 600 Mg Tablet, 600 MG PO Q8H Y for PAIN for 30 Days, Prov:DU VO MD 08/30/17 Diet: Regular Activity: As Tolerated Copies to: ALICE ZAMORANO MD Venous Thromboembolism Antithrombotics Is Pt On Any Antithrombotics?: No [id number] Certification Face to Face Home Health Certification Institutional Provider conducted the [id number] encounter. Electronic Undersigning Physician Certifies Home Health. I certify that the patient has been under my care and that I had a [id number] encounter that meets the physician [id number] encounter requirements with this patient. This patient is home-bound due to safety issues and continues to require assistance with ADL's. I certify that based on my findings, that Nursing, Aides and the following Home Health services are medically necessary: Medical Necessity: Nursing, Rehab Date Face to Face Conducted: September 25, 2017 ADIA CONN DO September 25, 2017 10:11
--- NOTE | 2017-09-25 11:54 | OT ECF NOTE ---
Type of Note: Discharge Note (09/25/17) Primary Medical Diagnosis: Pathological right acetabular fracture, breast cancer with mets to bones *NWB R LE* Occupational Therapy Evaluation Date: 09/17/17 SUBJECTIVE: Prior Hospitalization: [facility] 08/26/17 thru 08/30/17 and [facility] 09/13/17 thru 09/17/17 Prior Level of Function: Pt oriented to self and date with intermittent confusion throughout evaluation. Pt reports her son and wufkwycn-iv-ukn reside with her and assist for all ADLs/IADLs. Pt reports her sons are very strong and transfer her from bed to wheelchair. Pt has significant discomfort with sitting and transfers. Prior Living Status: Single level house, Living with family Community Services: [facility] Accessibility: Ramp All needs on one level Walk-in shower Equipment Owned: Rollator Wheelchair Hospital bed that is not set up Medical Complications/Past Medical History: Parkinson's, Stage IV breast cancer with mets to bones Psychosocial Support: Supportive family in [place] Pain Scale (0-10): Pt reporting significant pain in R hip and L foot throughout evaluation. Frequently grimacing and squirming when supine in bed secondary to pain. Ice and emotional support provided. OBJECTIVE: Strength: MMT: Right Left Shoulder Flexion N/T N/T Elbow Flexion N/T N/T Wrist Extension N/T N/T Direct Support Professional Caregiver N/T N/T (5= normal, 4= good, 3= fair, 2= poor, 1= trace) ROM: Both upper extremities, Minimally limited Functional Transfer: Assistive Device: EZ/Patient assisted lift Transfer Ability: Moderate assistance-Maximum assistance, 2-person assist to maintain NWB R LE ADL: Upper body dressing: Assistive device: Upper body dressing ability: N/T Lower body dressing: Assistive device: Lower body dressing ability: Total assistance donning socks Toileting: Assistive device: Incontinent of urine Toileting ability: Total assistance Grooming/hygiene: Assistive device: Grooming ability: Set-up Bathing: Assistive device: Bathing ability: Max A Standardized Assessment: Emily Index of Activities of Daily Livin/20 upon initial evaluation (09/18/17). Pt. scored 4/20 on this Index at d/c. ASSESSMENT: Vera presents to [facility] with significant pain limiting (I) with ADLs and functional transfers. At PLOF, her family was providing significant assist for all ADLs/IADLs/functional transfers. Vera will benefit from skilled OT services to improve tolerance for ADLs and receive patient/family education in order to promote a safe discharge plan. Problem List/Current Limitations: Pain Decreased WB Decreased activity tolerance Generalized weakness Confusion Short Term Goals: 1) Pt will be Mod A toilet task. Goal Not met. 2) Pt will be Mod A UB/LB dressing. Goal not met. 3) Pt Emily Index of ADLs score will improve by 2 points. 4) Pt and family will be educated on appropriate AE recommendations. Goal needs to be addressed further. 5) Pt will be set-up A grooming/hygiene. Goal met. Failure Analysis Technician Goals: Promote patient and family education in order to provide a safe discharge plan in accordance with patient and family goals. Patient Goals: "I want to go home and live" Rehabilitation Prognosis: Poor Barriers to Discharge: Medical history, pain, PLOF with significant assist from family for all ADLs/IADLs PLAN: The patient will d/c to facility in [place] for continued care. Thank you for this referral. If you have any questions, concerns, or comments about this report or plan, please contact me at . Radha Donohue, OTR/L Occupational Therapist DEISY
== END 2017-09-25 13:00 | DRG 566 ==
LOC: ECF 10:40
PROVIDERS: ADMIT Internal Medicine; ATTEND Internal Medicine
DX: M84.459 Pathological fracture, hip, unspecified (principal); C50.919 Malignant neoplasm of unspecified site of unspecified female breast; G20 Parkinson's disease; Z88.2 Allergy status to sulfonamides; Z92.21 Personal history of antineoplastic chemotherapy
CPT/HCPCS: 97162; 97166; J1650; S0119

== ENCOUNTER 2018-03-26 09:22 | Outpatient (RCR) | payer MEDICARE, BC ==
[2017-09-18 08:21] VITALS: Ht 149.9 cm; Wt 51.7 kg
[2018-01-22 09:26] VITALS: BP 152/75
[2018-01-22 10:25] VITALS: BP 152/75
[2018-01-22] MEDS: ACETAMINOPHEN 325 MG TAB PO PRN (11:31)
[2018-01-22] MEDS: diphenhydrAMINE 25 MG CAP PO PRN (11:31)
[2018-01-22] MEDS: LIDOCAINE/SOD BICARB 8.4% SYR ID PRN (12:31)
--- NOTE | 2018-01-22 16:51 | ONCOLOGY FOLLOW UP NOTE ---
EVENT DATE: January 22, 2018 DIAGNOSIS Metastatic breast cancer. CHIEF COMPLAINT Patient is here today to resume her treatment with Herceptin and PERJETA for her metastatic breast cancer. 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 Patient started treatment with Herceptin and PERJETA in December 2016 after recommendation by [facility]. She achieved a very good response with her treatment with normalization of her tumor markers. She developed a fracture and the patient had right hip replacement on November 12, 2017, and was admitted in a rehab center in [place]. So the patient resumed her treatment there with Herceptin and PERJETA on December 09, 2017. Patient returned back to [place] and she is currently admitted to a [facility]. PAST MEDICAL HISTORY 1. Breast cancer. 2. Hypertension. 3. Hyperlipidemia. PAST SURGICAL HISTORY 1. Ectopic surgery. 2. Right hip replacement on November 12, 2017. SOCIAL HISTORY Patient is a former smoker. She never used smokeless tobacco. She is a with two sons. She is a retired teacher. No abuse of tobacco, alcohol or illicit drugs. FAMILY HISTORY Paternal aunt with lymphoma in 50s. CURRENT MEDICATIONS 1. Vitamin D3 1000 units daily. 2. Polyethylene glycol 3350 powder, 17 g powder packet daily 8 g. 3. Hydrochlorothiazide 12.5 mg daily. 4. Docusate sodium 100 mg capsule twice daily. 5. Bisacodyl suppository 10 manage rectally daily as needed for constipation. 6. Tylenol 500 mg two tablets three times daily. 7. Mirapex 0.75 mg at bedtime. 8. Morphine sulfate extended release 30 mg twice daily. 9. Folic acid 1 mg daily. 10. Carbidopa/levodopa. 11. Sinemet 25/100 three times daily. ALLERGIES 1. AMANTADINE ANALOGS, patient passes out with that. 2. AERICEPT, nausea and vomiting. 3. SULFA, skin rash. REVIEW OF SYSTEMS CONSTITUTIONAL: No appetite or weight change. No fever, chills or sweating. No recent infection. HEENT: Ears: No tinnitus or hearing problem. Nose: She has runny nose. Throat: No sore throat or mouth ulcers. Eyes: No diplopia or visual changes. RESPIRATORY: No shortness of breath. No cough, expectoration or hemoptysis. CARDIOVASCULAR: No chest pain, orthopnea, or paroxysmal nocturnal dyspnea (PND). No edema. No palpitations. GASTROINTESTINAL: No nausea or vomiting. No diarrhea. She has constipation, under treatment. No heartburn or swallowing difficulties. No abdominal pain. No jaundice. No hematemesis, melena or rectal bleeding. GENITOURINARY: No hematuria or dysuria. She has incontinence. MUSCULOSKELETAL: No pain in the muscles, joints or bones. NEUROLOGICAL: No tingling or numbness in the hands or feet. No headaches or convulsions. HEMATOLOGIC/LYMPHATIC: No bleeding or easy bruising. No weakness or fatigue. No enlarged lymph nodes. SKIN: No skin rash or lumps. PSYCHIATRIC: No anxiety or depression. PHYSICAL EXAMINATION GENERAL: Looks stable. Well-developed, well-nourished, and in no acute distress. VITAL SIGNS: Blood pressure 152/75, pulse 80 per minute, respirations 16 per minute, temperature 97, pulse ox 90% on room air. HEENT: Head: Atraumatic. No sinus tenderness to palpation. Eyes: No icterus or conjunctivitis. Mouth and Throat: No oral thrush or mucositis. NECK: Supple. No cervical or supraclavicular lymphadenopathy. LUNGS: Clear to auscultation and percussion bilaterally. HEART: Regular rate and rhythm. No gallops, murmurs, clicks or rubs. ABDOMEN: Soft and lax. No tenderness. No hepatosplenomegaly. No masses. EXTREMITIES: No cyanosis, clubbing or edema. LYMPHATICS: No peripheral lymphadenopathy. NEUROLOGICAL: Conscious, alert and oriented times three. No focal motor or sensory deficits. PSYCHIATRIC: Mood and affect appear normal. SKIN: No skin rash, bruise or purpuric eruption. DIAGNOSTIC DATA Pending. ASSESSMENT Stage IV metastatic breast cancer with diffuse bony metastasis diagnosed October 2016 and started treatment with Herceptin, PERJETA in December 2017 with achievement of excellent response. She was offered treatment since September 2017 because of her right hip replacement surgery done on November 12, 2017. Patient resumed her treatment with Herceptin, PERJETA on December 09, 2017. Her last tumor marker done on December 30, 2017 showed CA 15-3 normal at 15.6, and CA 27-29 was also normal at 15.5. I am planning to proceed with her Herceptin, PERJETA today as the patient missed her appetite last week for the treatment. Her last echocardiogram for evaluation of left ventricular ejection fraction done on December 10, 2017 showed a normal left ventricular ejection fraction at 55% to 60%. I am planning to see her again in three weeks with CBC, chem panel, CA 27-29 and CA 15-3. PLAN 1. Herceptin, PERJETA today. 2. Xgeva 120 mg subcutaneously today. 3. Patient to return in three weeks with CBC, chem panel, CA 27-29, CA 15-3. 4. Patient is to contact us for any new concerns or complaints. MTDD
[2018-02-12 09:25] VITALS: BP 135/67
[2018-02-12] MEDS: LIDOCAINE/SOD BICARB 8.4% SYR ID PRN (09:36)
[2018-02-12] MEDS: ACETAMINOPHEN 325 MG TAB PO PRN (10:04)
[2018-02-12] MEDS: diphenhydrAMINE 25 MG CAP PO PRN (10:04)
--- NOTE | 2018-02-12 21:33 | ONCOLOGY FOLLOW UP NOTE ---
EVENT DATE: February 12, 2018 DIAGNOSIS Metastatic breast cancer. CHIEF COMPLAINT Patient is here today for her treatment with Herceptin and Perjeta for her metastatic breast cancer. ONCOLOGY HISTORY Patient is a 77-year-old female who was diagnosed with metastatic breast cancer in October 2016, and her tumor was poorly differentiated invasive ductal carcinoma with diffuse bony metastasis, ER/MS negative, and HER2/maricarmen positive. Patient started treatment with Herceptin and Perjeta in December [address] [facility]. She achieved a very good response with her treatment with normalization of her tumor markers. She developed a fracture, and the patient had right hip replacement on November 12, 2017, and was admitted in a rehab center in [place]. So, the patient resumed her treatment there with Herceptin and Perjeta on December 09, 2017. Patient returned back to [place], and she is currently admitted to a assisted. HISTORY OF PRESENT ILLNESS Patient is here today for followup of her metastatic breast cancer, on treatment with Herceptin and Perjeta. She is doing fine currently except for being fatigued and tired. She has also right hip pain and right shoulder pain from torn rotator cuff, but other than that, she is stable. PAST MEDICAL HISTORY 1. Breast cancer. 2. Hypertension. 3. Hyperlipidemia. PAST SURGICAL HISTORY 1. Ectopic surgery. 2. Right hip replacement on November 12, 2017. SOCIAL HISTORY Patient is a former smoker. She never used smokeless tobacco. She is a with two sons. She is a retired teacher. No abuse of tobacco, alcohol, or illicit drugs. FAMILY HISTORY Paternal aunt with lymphoma in 50s. CURRENT MEDICATIONS 1. Vitamin D3 1000 units daily. 2. Polyethylene glycol 3350 powder, 17 g powder packet daily 8 g. 3. Hydrochlorothiazide 12.5 mg daily. 4. Docusate sodium 100 mg capsule twice daily. 5. Bisacodyl suppository 10 mg rectally daily as needed for constipation. 6. Tylenol 500 mg two tablets three times daily. 7. Mirapex 0.75 mg at bedtime. 8. Morphine sulfate extended release 30 mg twice daily. 9. Folic acid 1 mg daily. 10. Carbidopa/levodopa. 11. Sinemet 25/100 three times daily. ALLERGIES 1. AMANTADINE ANALOGS, patient passes out with that. 2. ARICEPT, nausea and vomiting. 3. SULFA, skin rash. REVIEW OF SYSTEMS CONSTITUTIONAL: No appetite or weight change. No fever, chills, or sweating. No recent infection. HEENT: Ears: No tinnitus or hearing problem. Nose: She has runny nose. Throat: No sore throat or mouth ulcers. Eyes: No diplopia or visual changes. RESPIRATORY: No shortness of breath. No cough, expectoration, or hemoptysis. CARDIOVASCULAR: No chest pain, orthopnea, or paroxysmal nocturnal dyspnea (PND). No edema. No palpitations. GASTROINTESTINAL: No nausea or vomiting. No diarrhea. She has constipation, under treatment. No heartburn or swallowing difficulties. No abdominal pain. No jaundice. No hematemesis, melena, or rectal bleeding. GENITOURINARY: No hematuria or dysuria. She has incontinence. MUSCULOSKELETAL: She has pain in the right hip and right shoulder. NEUROLOGICAL: No tingling or numbness in the hands or feet. No headaches or convulsions. HEMATOLOGIC/LYMPHATIC: No bleeding or easy bruising. She is weak, tired, and fatigued. No enlarged lymph nodes. SKIN: No skin rash or lumps. PSYCHIATRIC: No anxiety or depression. PHYSICAL EXAMINATION GENERAL: Looks stable. Well developed, well nourished, and in no acute distress. VITAL SIGNS: Blood pressure 135/67, pulse 88 per minute, respirations 18 per minute, temperature 98.8, pulse ox 95% on room air. HEENT: Head: Atraumatic. No sinus tenderness to palpation. Eyes: No icterus or conjunctivitis. Mouth and Throat: No oral thrush or mucositis. NECK: Supple. No cervical or supraclavicular lymphadenopathy. LUNGS: Clear to auscultation and percussion bilaterally. HEART: Regular rate and rhythm. No gallops, murmurs, clicks, or rubs. ABDOMEN: Soft and lax. No tenderness. No hepatosplenomegaly. No masses. EXTREMITIES: No cyanosis, clubbing, or edema. LYMPHATICS: No peripheral lymphadenopathy. NEUROLOGICAL: Conscious, alert, and oriented times three. No focal motor or sensory deficits. PSYCHIATRIC: Mood and affect appear normal. SKIN: No skin rash, bruise, or purpuric eruption. DIAGNOSTIC DATA CBC showed white count 5000, hemoglobin 11.2, hematocrit 35.1, platelets 424,000. CEA is normal at 1.8, and CA27.29 is normal at 17.5. ASSESSMENT Stage IV metastatic breast cancer with diffuse bony metastatic disease diagnosed October 2016 and started treatment with Herceptin and Perjeta December 2017 with achievement of excellent response. She was off her treatment since September 2017 because of right hip replacement surgery done November 12, 2017, and the patient resumed her treatment with Herceptin and Perjeta December 09, 2017. Her tumor marker with CA27.29, CA15-3, and CEA were in the normal range. I am planning to proceed with Herceptin and Perjeta today. I am planning to see her again in three weeks with CBC, chemistry panel, CEA, CA27.29, and CA15-3. Her left ventricular ejection fraction by echocardiogram done on the November was normal at 55% to 60%. PLAN 1. Herceptin and Perjeta. 2. Xgeva 120 mg subcutaneously every four weeks. 3. Patient to return in three weeks with CBC, chem panel, CA27.29, CA15-3, and CEA. 4. Patient to contact us for any new concern or complaints. MTDD
[2018-03-05 09:39] VITALS: BP 130/70
[2018-03-05] MEDS: LIDOCAINE/SOD BICARB 8.4% SYR ID PRN (10:06)
[2018-03-05] MEDS: ACETAMINOPHEN 325 MG TAB PO PRN (10:06)
[2018-03-05] MEDS: diphenhydrAMINE 25 MG CAP PO PRN (10:06)
[~2018-03-26] VITALS: Ht 149.9 cm; Wt 51.7 kg
[~2018-03-26 09:22] MED LIST changes: +ACET-2146 PO; +BISA10SU66 PR; +CARB-71 PO; +DENOSUMAB 120 MG/1.7 ML VIAL SUBQ ONE; +DEXTROSE 5%(*) 100 ML BAG 100 ML IVPB PRN; +DOCU-202 PO; -HYDR-4305 PO; +HYDR-627 PO; +HYDR12.561 PO; +LIDO700A19 TOP; +MORP-181 PO; +MORP-20 PO; +MORP-21 PO; +MORP10CA3 PO; +NS 0.9% IVPB ONE; +OXYGENHOME INH; +PERTUZUMAB IVPB ONE; +POLY17PO11 PO; +TRASTUZUMAB IVPB ONE
[2018-03-26 09:29] VITALS: BP 164/89
[2018-03-26] MEDS: diphenhydrAMINE 25 MG CAP PO PRN (10:30)
[2018-03-26] MEDS: ACETAMINOPHEN 325 MG TAB PO PRN (10:30)
[2018-03-26] MEDS: NS(*) 0.9% 100 ML BAG 100 ML IVPB PRN ×2 (10:32→11:31)
[2018-03-26] MEDS: LIDOCAINE/SOD BICARB 8.4% SYR ID PRN (10:32)
[2018-03-26] MEDS ORDERED: PERTUZUMAB IVPB ONE (11:00)
[2018-03-26] MEDS ORDERED: TRASTUZUMAB IVPB ONE (11:00)
[2018-03-26] MEDS ORDERED: NS 0.9% IVPB ONE ×2 (11:00)
[2018-03-26 12:36] VITALS: BP 99/56
--- NOTE | 2018-03-27 16:31 | ONCOLOGY FOLLOW UP NOTE ---
EVENT DATE: March 26, 2018 CHIEF COMPLAINT Patient is here for continued treatment for metastatic breast cancer. HISTORY OF PRESENT ILLNESS Patient is a 77-year-old female who is seen today for cycle #15 of ongoing Herceptin and Perjeta. She has tolerated her treatment without issue and overall feels well. She does have chronic pain and continues on morphine 25 mg b.i.d. She tells me that Dr. Aparicio is attempting to slowly decrease this. She ambulates with a walker, but wishes she "could walk some more." She relates that she has a small sacral decubitus, but [facility] the [facility] are caring [facility] this, and she feels it is getting better. She has chronic constipation, but controlled with MiraLAX. She does have poor urinary control and wears pull-ups. Otherwise, she feels fairly well. ONCOLOGY HISTORY Patient is a 77-year-old female who was diagnosed with metastatic breast cancer in October 2016. Her tumor was poorly differentiated invasive ductal carcinoma with diffuse bony metastasis, ER/LA negative, and HER2/maricarmen positive. Patient started treatment with Herceptin and Perjeta in December 2016 after recommendation by [facility]. She achieved a very good response with her treatment with normalization of her tumor markers. She developed a fracture, and the patient had right hip replacement on November 12, 2017, and was admitted in a rehab center in [place]. The patient resumed her treatment there with Herceptin and Perjeta on December 09, 2017. Patient returned back to [place], and she is currently [facility] to a [facility]. PAST MEDICAL HISTORY 1. Breast cancer. 2. Hypertension. 3. Hyperlipidemia. 4. Parkinson disease. 5. Rheumatic fever at age 5. PAST SURGICAL HISTORY 1. Ectopic surgery. 2. Right hip replacement on November 12, 2017. SOCIAL HISTORY The patient is . She has two grown sons. She lives at [facility]. She is a retired teacher. No abuse of tobacco, alcohol, or illicit drugs. FAMILY HISTORY Paternal aunt with lymphoma in 50s. CURRENT MEDICATIONS 1. Morphine sulfate 25 mg b.i.d. 2. Lidocaine 5% patch daily. 3. Carbidopa/levodopa 25/100 one tablet q.i.d. 4. MiraLAX. 5. Tylenol. 6. Voltaren 1% gel b.i.d.. 7. Vitamin D3 1000 International Units daily. 8. Pramipexole 0.75 mg at bedtime. ALLERGIES SULFA and AMANTADINE. ARICEPT causes nausea and vomiting. REVIEW OF SYSTEMS A 12-point review of systems is performed and is negative except as stated above. PHYSICAL EXAMINATION VITAL SIGNS: Weight 51.7 kg. BP 164/89, P 76, R 16, temp 98.3, O2 sat 90%. GENERAL: Patient is a well-developed female in no acute distress. HEAD: Atraumatic, normocephalic. EYES: Sclerae anicteric. MOUTH: Moist mucous membranes without lesions. NECK: No palpable adenopathy. LUNGS: Clear bilaterally. CARDIOVASCULAR: Heart rate regular, 76 per minute, without murmur, S3, or S4. ABDOMEN: Soft, nontender. No organomegaly. Exam limited as patient is in her recliner chair. EXTREMITIES: No edema. NEUROLOGIC: Mild parkinsonian tremor. She is alert and oriented times three. LABORATORY CBC today reveals a WBC of 7.7, hemoglobin 11.5, hematocrit 36,5, platelets 351,000. CMP is within normal limits except for random glucose of 129. CA27.29 and CEA are pending. IMPRESSION AND PLAN The patient is a 77-year-old female diagnosed with diffuse bony metastatic disease in October 2016, ER/LA negative, and HER2/maricarmen positive. Began treatment with Herceptin and Perjeta in December 2016 with excellent response. Treatment was held between September 2017 and November 2017 due to a fractured right hip/surgery. 1. Metastatic breast cancer. Cycle #15 of Herceptin and Perjeta. She is tolerating this well. 2. Cardiac. Echocardiogram on 12/10/17 showed an ejection fraction of 55-60%. This will be repeated on 03/30/18. 3. Bone metastases. Continue Xgeva 120 mg subcutaneously every six weeks. She will be due for her next treatment on 04/16/18. 4. Sacral decubitus. [facility] at [facility]. Patient states that this is slowly improving. 5. Follow up on 04/16/18 for cycle #16 of Herceptin and Perjeta as well as Xgeva. She will see Dr. Bay on 05/07/18. [facility]
[2018-03-29] MEDS ORDERED: LIDO700A19 TOP (17:37)
[2018-03-30] MEDS ORDERED: PRAM1.5T21 PO (08:42)
[2018-04-06] MEDS ORDERED: CEPH500T7 PO (16:46)
[2018-04-12] MEDS ORDERED: MORP-181 PO (07:38)
[2018-04-12] MEDS ORDERED: MORP10CA3 PO (07:38)
[2018-04-12] MEDS ORDERED: POLY17PO11 PO (15:21)
[2018-04-13] MEDS ORDERED: GUAI237L21 PO (13:24)
[2018-04-13] MEDS ORDERED: ACET-1966 PO (13:24)
[2018-04-13] MEDS ORDERED: ASPI-757 PO (13:24)
[2018-04-13] MEDS ORDERED: MAG-65 PO (13:24)
[2018-04-13] MEDS ORDERED: CARB1DRO25 OP (13:57)
[2018-04-13] MEDS ORDERED: LOPE2CAP15 PO (13:57)
[2018-04-13] MEDS ORDERED: CALC1TAB24 PO (13:57)
== END 2018-04-21 ==
LOC: ONC 09:22
PROVIDERS: ATTEND Internal Medicine Hematology
DX: Z51.11 Encounter for antineoplastic chemotherapy (principal); C50.919 Malignant neoplasm of unspecified site of unspecified female breast; Z17.1 Estrogen receptor negative status [ER-]; C79.51 Secondary malignant neoplasm of bone; R53.83 Other fatigue; Z87.891 Personal history of nicotine dependence; Z79.899 Other long term (current) drug therapy; K59.00 Constipation, unspecified
CPT/HCPCS: 82378; 83735; 84100; 85027; 86300; 93306; 96372; 96413; 96417; A9270; G0463; J0897; J7050; J9306; J9355; Q0163; 82040; 82247; 82310; 82374; 82435; 82565; 82947; 84075; 84132; 84155; 84295; 84450; 84460; 84520; 99212; 99213

== ENCOUNTER → 2018-04-06 | Outpatient (CLI) | payer MEDICARE, BC ==
[2017-09-18 08:21] VITALS: BMI 20.9
[~2018-04-06] MED LIST changes: +CEPH500T7 PO; -DENOSUMAB 120 MG/1.7 ML VIAL SUBQ ONE; -DEXTROSE 5%(*) 100 ML BAG 100 ML IVPB PRN; -NS 0.9% IVPB ONE; -PERTUZUMAB IVPB ONE; +PRAM1.5T21 PO; -TRASTUZUMAB IVPB ONE
[2018-04-06 15:07] LABS: PLATELET COUNT, AUTOMATED 384 K/uL (150-450)
--- NOTE | 2018-04-06 15:42 | RADIOLOGY IMAGING REPORT ---
FACILITY: [facility] PATIENT NAME: Vera Tidwell : 1940 MR: [id number] V: [id number] EXAM DATE: ORDERING PHYSICIAN: ALICE ZAMORANO TECHNOLOGIST: Location: [facility] [place] Patient: Vera Tidwell : 1940 Visit/Account:[id number] Date of Sevice: 04/06/2018 Exam type: HIP RIGHT History: pain, redness, hx of total hip Comparison: September 13 2017. Findings: There is a right hip arthroplasty that appears in good anatomic alignment. There is no evidence of a cute fracture-dislocation. Diffuse osteoblastic metastases appear more prominent when compared to th e prior study IMPRESSION: Right hip arthroplasty appears in good anatomic alignment Diffuse osteoblastic metastases appear more prominent when compared to the prior study Report Dictated By: Ella Guillaume MD at 04/06/2018 3:36 PM Report E-Signed By: Ella Guillaume MD at 04/06/2018 3:38 PM WSN:[email or web address]
== END ==
LOC: RAD 13:47
PROVIDERS: ATTEND Family Medicine
DX: M25.551 Pain in right hip (principal); Z96.641 Presence of right artificial hip joint; L53.9 Erythematous condition, unspecified
CPT/HCPCS: 36415; 85025; 85651; 86140

== ENCOUNTER → 2018-04-13 | Outpatient (CLI) | payer MEDICARE, BC ==
[2017-09-18 08:21] VITALS: BMI 20.9
[~2018-04-13] MED LIST changes: +ASPI-757 PO; +CALC1TAB24 PO; +CARB1DRO25 OP; +GUAI237L21 PO; +IOPAMIDOL 76% 75 ML INFUS BTL 75 ML ONE; +LOPE2CAP15 PO; +MAG-65 PO
--- NOTE | 2018-04-13 17:02 | RADIOLOGY IMAGING REPORT ---
FACILITY: [facility] [place] PATIENT NAME: Vera Tidwell : 1940 MR: [id number] V: [id number] EXAM DATE: ORDERING PHYSICIAN: ALICE ZAMORANO TECHNOLOGIST: Location: [facility] Patient: Vera Tidwell : 1940 Visit/Account:[id number] Date of Sevice: 04/13/2018 Examination: CT right hip with contrast HISTORY: Recent hip arthroplasty placement. Redness. Swelling. TECHNIQUE: Transaxial computed tomography images are obtained of the right hip following the administ ration of 75 mL of Isovue 370. Multiplanar reformatted images were created in the coronal and sagitta l planes. One of the following dose optimization techniques was utilized in the performance of this exam: Autom ated exposure control; adjustment of the mA and/or kV according to the patient's size; or use of an i terative reconstruction technique. Specific details can be referenced in the facility's radiology C T exam operational policy. COMPARISON: Recent plain films dated 04/06/2018 are reviewed. FINDINGS: A right total hip arthroplasty is in place. The components cause surrounding metal streak artifact wi thin the soft tissues. The components do appear appropriately aligned without evidence of periprosthe tic fracture. Best appreciated in the short axis, there is a hip joint effusion identified. This appe ars to surround the femoral neck component and distends the joint recesses inferiorly. This fluid ext ends posteriorly and laterally and is seen to overlie the greater trochanter. This extends into the o verlying subcutaneous tissues and is seen just below the thickened skin surface on or about CT series #3 image 88. While this may represent a postoperative joint effusion, given the history, postoperati ve infection must be considered in the differential. This fluid should be amenable to aspiration and fluid analysis. There is suspected extension of fluid into the iliopsoas bursa and into the pelvis overlying the righ t iliac wing. No soft tissue gas is identified. There is abnormal skin thickening along the lateral margin of the hip extending both anteriorly and p osteriorly. There is underlying stranding within the subcutaneous tissues. Correlate for changes of c ellulitis and/or postoperative edema. With respect to the surrounding osseous structures, there is evidence of fairly diffuse osseous metas tatic disease. Extensive areas of sclerosis are seen involving the lumbar spine, the sacrum and the r ight iliac wing in keeping with metastatic breast cancer. There is involvement of the bilateral pubic rami as well. No acute fracture deformity is seen. Within the pelvis, there is a moderate volume of stool seen within the colon and rectum. A pessary de vice is in place. IMPRESSION: 1. Right total hip arthroplasty with a large hip joint effusion which extends along the posterior and lateral margin of the right greater trochanter into the overlying soft tissues and is seen just deep to the abnormally thickened skin at the level of the greater trochanter. While this could represent a postoperative joint effusion, superimposed infection must be considered given the history. This daniele uld be amenable to percutaneous aspiration. 2. Abnormal skin thickening along the lateral margin of the right pelvis extending to involve the lat eral thigh with areas of subcutaneous edema. Correlate for cellulitis. 3. Known osseous metastatic disease of breast cancer with extensive areas of osteoblastic metastatic disease. Results were discussed with ALICE ZAMORANO at 04/13/2018 4:52 PM. Report Dictated By: Cliff Rose at 04/13/2018 4:38 PM Report E-Signed By: Cliff Rose at 04/13/2018 4:57 PM WSN:[id number]
== END ==
LOC: CT 11:46
PROVIDERS: ATTEND Family Medicine
DX: M25.451 Effusion, right hip (principal); Z96.641 Presence of right artificial hip joint; G89.18 Other acute postprocedural pain; C50.919 Malignant neoplasm of unspecified site of unspecified female breast
CPT/HCPCS: 73701; Q9967

== ENCOUNTER → 2018-04-14 | Outpatient (CLI) | payer MEDICARE, BC ==
[2017-09-18 08:21] VITALS: BMI 20.9
[~2018-04-14] MED LIST changes: -IOPAMIDOL 76% 75 ML INFUS BTL 75 ML ONE; +LIDOCAINE MPF 1% 5 ML VIAL ONE
--- NOTE | 2018-04-14 17:18 | RADIOLOGY IMAGING REPORT ---
FACILITY: [facility] PATIENT NAME: Vera Tidwell : 1940 MR: [id number] V: [id number] EXAM DATE: ORDERING PHYSICIAN: ALICE ZAMORANO TECHNOLOGIST: Location: [facility] Patient: Vera Tidwell : 1940 Visit/Account:[id number] Date of Sevice: 04/14/2018 Exam type: ARTHROCENTESIS History: Right hip fluid Comparison: CT of the right hip April 13, 2018.. Findings: Informed consent was obtained. The anterior aspect of the patient's right hip joint was prepped and draped in usual sterile fashion. Local anesthesia was accomplished with 1% lidocaine. Utilizing flu oroscopic guidance A 22-gauge spinal needle was advanced percutaneously along the lateral aspect of t he greater trochanter. No fluid could be aspirated. An 18-gauge needle was then advanced percutaneo usly along the lateral aspect of the right greater trochanter. Approximately 1 mL of first straw-col ored fluid then bloody fluid was aspirated. No more fluid could be aspirated despite needle manipula tion. The samples were sent to laboratory for culture sensitivity and Gram stain. Incidental noted are numerous sclerotic metastases in the visualized bones The fluoroscopy dose area product was 119.35 micro-Medina per meter squared IMPRESSION: 1. Successful aspiration of approximately 1 mL of straw-colored been bloody fluid from the right hip joint just lateral to the greater trochanter. The samples were sent to laboratory for culture sensi tivity and Gram stain. Report Dictated By: Ella Guillaume MD at 04/14/2018 5:10 PM Report E-Signed By: Ella Guillaume MD at 04/14/2018 5:14 PM WSN:[id number]
== END ==
LOC: RAD 10:35
PROVIDERS: ATTEND Family Medicine
DX: M25.451 Effusion, right hip (principal)
CPT/HCPCS: 20610; 77002; 87071; 87205; J2001

== ENCOUNTER → 2018-04-15 | Outpatient (CLI) | payer MEDICARE, BC ==
[2017-09-18 08:21] VITALS: BMI 20.9
[~2018-04-15] MED LIST changes: -LIDOCAINE MPF 1% 5 ML VIAL ONE
--- NOTE | 2018-04-15 16:08 | RADIOLOGY IMAGING REPORT ---
FACILITY: [facility] PATIENT NAME: Vera Tidwell : 1940 MR: [id number] V: [id number] EXAM DATE: ORDERING PHYSICIAN: ALICE ZAMORANO TECHNOLOGIST: Location: [facility] [place] Patient: Vera Tidwell : 1940 Visit/Account:[id number] Date of Sevice: 04/15/2018 Exam type: BONE SCAN 3 PHASE History: Eval of right hip, increase pain, redness, swelling Comparison: CT of the right hip April 13, 2018. Findings: The patient was injected intravenously with 25.4 mCi of technetium 99m MDP. Immediate flow images de monstrated a photopenic defect from the patient's right hip arthroplasty. There is relatively symmet agata flow over both hips otherwise. Blood pool images demonstrated increased isotope uptake over the medial and posterior aspect of the r ight hip relative to the left. Delayed images demonstrated increased isotope uptake over the greater trochanter relative to the left and mildly increased uptake surrounding the medial aspect of the right hip. This finding is likely related to hip joint infection given the large effusion seen on the recent CT scan There is a focal ovoid collection of contrast projecting in the midline below the pubic symphysis lik vania urine contamination. Increased uptake in the iliac bones and proximal femoral shafts left femora l head neck and intertrochanteric region consistent with known metastases IMPRESSION: 1. Findings are likely related to an infected right hip effusion Known osseous metastases Report Dictated By: Ella Guillaume MD at 04/15/2018 3:56 PM Report E-Signed By: Ella Guillaume MD at 04/15/2018 4:04 PM WSN:[email or web address]
== END ==
LOC: NUC 07:39
PROVIDERS: ATTEND Family Medicine
DX: M25.451 Effusion, right hip (principal); G89.18 Other acute postprocedural pain; Z96.649 Presence of unspecified artificial hip joint
CPT/HCPCS: 78315; A9503

== ENCOUNTER → 2018-07-16 | Outpatient (CLI) | payer MEDICARE, BC ==
[2017-09-18 08:21] VITALS: BMI 20.9
[~2018-07-16] MED LIST changes: +AMLO2.5T78 PO; +OXYC5TAB38 PO
--- NOTE | 2018-07-16 15:22 | RADIOLOGY IMAGING REPORT ---
FACILITY: [facility] PATIENT NAME: Vera Tidwell : 1940 MR: [id number] V: [id number] EXAM DATE: ORDERING PHYSICIAN: ALICE ZAMORANO TECHNOLOGIST: Location: [facility] [place] Patient: Vera Tidwell : 1940 Visit/Account:[id number] Date of Sevice: 07/16/2018 EXAMINATION: CT Face without intravenous contrast HISTORY: Left facial swelling. Breast cancer. COMPARISON: Brain MRI dated 05/07/2017. TECHNIQUE: Axial images were obtained from the superior aspect of the orbits through the inferior as pect of mandible. Coronal and sagittal reformatted images were obtained from the axial source data. N o IV contrast was administered. One of the following dose optimization techniques was utilized in the performance of this exam: Autom ated exposure control; adjustment of the mA and/or kV according to the patient's size; or use of an i terative reconstruction technique. Specific details can be referenced in the facility's radiology C T exam operational policy. FINDINGS: Soft Tissues: Enlarged and slightly hyperdense left parotid gland with surrounding fat stranding susp icious for tumor or parotitis. Mandible / TMJ: Bilateral temporomandibular joint arthritis. Maxillae / pterygoid plates: Negative. Zygoma / zygomatic arches: Negative. Orbits: Negative. Nasal bones / nasal septum: 2.0 x 1.7 cm nasal septal perforation. Leftward nasal septal deviation a nteriorly. Frontal bones: Negative. Sinuses: Moderate mucosal thickening in the left sphenoid sinus. Visualized brain: Negative. Patchy sclerosis in the cervical spine suspicious for osseous metastasis. IMPRESSION: Enlarged and slightly hyperdense left parotid gland with surrounding fat stranding suspic ious for tumor or parotitis. Report Dictated By: Wally Schwartz MD at 07/16/2018 3:10 PM Report E-Signed By: Wally Schwartz MD at 07/16/2018 3:17 PM WSN:[id number]
== END ==
LOC: CT 06:55
PROVIDERS: ATTEND Family Medicine
DX: K11.1 Hypertrophy of salivary gland (principal); M26.69 Other specified disorders of temporomandibular joint; J34.2 Deviated nasal septum; J32.3 Chronic sphenoidal sinusitis; G95.89 Other specified diseases of spinal cord
CPT/HCPCS: 70486

== ENCOUNTER 2018-08-06 01:36 | Emergency (ER) | payer MEDICARE, BC ==
[2017-09-18 08:21] VITALS: BMI 20.9
[~2018-08-06 01:36] MED LIST changes: -ALB18R INH; -AMLO-125 PO; -AZIT-18 PO; -CYA1000 PO; -DICL100G7 TP; -POLY17PO25 PO; -PRAM1.5T5 PO; -[UNRECOGNIZED DRUG - CODE] TD
--- NOTE | 2018-08-06 01:48 | ER Report ---
History and Physical Time Seen By MD: 01:40 HPI/ROS CHIEF COMPLAINT: Cough, shortness breath, elevated blood pressure HISTORY OF PRESENT ILLNESS: 77-year-old female resident of [facility], history of Parkinson, breast cancer, fall 2 months ago with a fractured hip cup came by infection. She was on antibiotics until 2 weeks ago. She was doing well until one hour prior to arrival. Patient started developing cough productive sputum and was uncomfortable laying in bed flat. Patient denies chest pain. She has some mild shortness of breath. Blood pressure was noted be 210/110 prior to arrival. Patient is feeling slightly lightheaded. She has no nausea, vomiting, fever, chills, change in baseline lower extremity edema, change in urination. Her pulsed shows DO NOT RESUSCITATE with selective measures. REVIEW OF SYSTEMS: Constitutional: No fever, no chills. Eyes: no blurred vision ENT: No sore throat. Cardiovascular: above Respiratory: above Gastrointestinal: No abdominal pain, no vomiting. Genitourinary: no dysuria Musculoskeletal: No back pain. Skin: No rashes. Neurological: No headache. Remainder of the 14 system rev: Yes Allergies: Coded Allergies: amantadine (Verified Allergy, Severe, hallucinations and falling, 06/01/17) Sulfa (Sulfonamide Antibiotics) (Verified Allergy, Unknown, 10/23/16) Home Meds Active Scripts Carbidopa/Levodopa (SINEMET 25-100 MG TABLET) 1 Each Tablet, 1 EACH PO TID for 90 Days, #360 TAB 4 Refills Prov:ALICE ZAMORANO MD 07/15/18 Pramipexole Di-Hcl (MIRAPEX ER) 1.5 Mg Tab.er.24h, 1.5 MG PO QDAY for 90 Days, #90 TAB Prov:ALICE ZAMORANO MD 07/05/18 Amlodipine Besylate (AMLODIPINE BESYLATE) 2.5 Mg Tablet, 1 TAB PO QDAY for 90 Days, #90 TAB Prov:ALICE ZAMORANO MD 07/01/18 Polyethylene Glycol 3350 (POLYETHYLENE GLYCOL 3350) 17 Gm Powd.pack, 8 GM PO QDAY for 90 Days, #45 PACKET 4 Refills Prov:ALICE ZAMORANO MD 04/12/18 Docusate Sodium (DOCUSATE SODIUM) 100 Mg Capsule, 100 MG PO BID for 90 Days, #180 CAPSULE 4 Refills Prov:ALICE ZAMORANO MD 02/10/18 Bisacodyl (BISAC-EVAC) 10 Mg Supp.rect, 10 MG [place] QDAY PRN for CONSTIPATION for 30 Days, #30 SUPP.RECT Prov:ALICE ZAMORANO MD 02/10/18 Acetaminophen 500 Mg Tab (ACETAMINOPHEN EXTRA STRENGTH) 500 Mg Tablet, 1000 MG PO TID for 90 Days, #270 TAB 4 Refills Prov:ALICE ZAMORANO MD 02/10/18 Diclofenac Sodium 1% Gel (VOLTAREN 1% GEL) 100 Gm Gel..gram., 2 GM TOP BID for 30 Days, #1 TUBE Prov:ALICE ZAMORANO MD 02/09/18 Cholecalciferol (Vitamin D3) (VITAMIN D3) 1,000 Unit Tablet, 1 TAB PO DAILY for 90 Days, #90 TAB 4 Refills Prov:ALICE ZAMORANO MD 01/27/18 Reported Medications Oxycodone Hcl (OXYCODONE HCL) 5 Mg Tablet, 1-2 TAB PO Q6H PRN for PAIN 1 tab q6prn for pain rated 1-5 May have 2 tab q6prn for pain rated 6-10 07/15/18 Carboxymethylcellulose Sodium (THERA TEARS) 1 Each Droper.gel, 1 EACH OP PRN 04/13/18 Loperamide HCl (Imodium A-D) 2 Mg Capsule, 2 CAP PO DIRECTED PRN for DIARRHEA 04/13/18 Calcium Carbonate/Mag Hydrox (ANTACID CHEWABLE TABLET) 1 Each Tab.chew, 2 TAB.CHEW PO Q2H PRN for HEARTBURN, TAB.CHEW 04/13/18 Mag Hydrox/Aluminum Hyd/Simeth (Maalox Advanced Suspension) 200 Mg-200 Mg-20 Mg/5 Ml Oral.susp, 15 ML PO Q4H PRN for PRN 04/13/18 Aspirin (ASPIRIN) 325 Mg Tablet, 1 TAB PO ONCE PRN for chest pain, TAB 04/13/18 Acetaminophen (TYLENOL) 325 Mg Tablet, 1-2 TAB PO Q4H PRN for PAIN/TEMP OVER 100.4, TAB 04/13/18 Guaifenesin/Dextromethorphan (Robitussin Cough-Chest Dm Liq) 100 Mg-5 Mg/5 Ml Liquid, 5 ML PO Q4-6H PRN for COUGH 04/13/18 Oxygen (OXYGEN) Inha, 2 L INH, L 12/31/17 Reviewed Nurses Notes: Yes Old Medical Records Reviewed: Yes Hx Smoking: No Smoking Status: Never Smoker Exposure to Second Hand Smoke?: No Hx Substance Use Disorder: No Hx Alcohol Use: No Constitutional Vital Sign - Last 24 Hours 08/06/18 08/06/18 08/06/18 08/06/18 01:39 01:40 01:45 01:55 Temp 98.8 Pulse 81 Resp 19 B/P (MAP) 195/113 195/113 (140) 191/112 (138) Pulse Ox 85 O2 Delivery Room Air O2 Flow Rate 2.0 08/06/18 08/06/18 08/06/18 08/06/18 02:00 02:06 02:28 02:33 Pulse 86 71 Resp 16 21 B/P (MAP) 192/107 (135) 194/102 (132) Pulse Ox 96 96 08/06/18 08/06/18 08/06/18 08/06/18 02:35 02:40 02:45 02:45 Pulse 75 70 73 Resp 16 16 16 B/P (MAP) 180/95 (123) Pulse Ox 96 08/06/18 08/06/18 08/06/18 08/06/18 03:03 03:08 03:40 03:57 Pulse 77 86 Resp 16 15 21 21 B/P (MAP) 181/94 (123) Pulse Ox 94 97 89 94 O2 Delivery Nasal Cannula Room Air Nasal Cannula O2 Flow Rate 2 1 Intake and Output 08/05/18 08/05/18 08/06/18 15:00 23:00 07:00 Output Total 100 ml Balance -100 ml Physical Exam General Appearance: The patient is alert, has no immediate need for airway protection and no signs of toxicity. Eyes: Pupils equal and round no pallor or injection. ENT, Mouth: Mucous membranes are moist. Respiratory: there are no retractions. Pt has bilateral ronchi that clear somewhat with coughing. No tachypnea. Sats 88% on room air Cardiovascular: Regular rate and rhythm. Gastrointestinal: Abdomen is soft and non tender, no masses, bowel sounds normal. Neurological: alert, oriented, moves all ext Skin: Warm and dry, no rashes; decubitus ulcer Musculoskeletal: Neck is supple non tender. Extremities are nontender, with mild peripheral edema and have full range of motion. DIFFERENTIAL DIAGNOSIS: After history and physical exam differential diagnosis was considered for pneumonia, pe, chf, acs, pneumothorax, viral respiratory illn ess, or other emergent etiology of symtpoms. Medical Decision Making Data Points Result Diagram: 08/06/18 0201 08/06/18 0201 Laboratory Hematology Test 08/06/18 01:45 08/06/18 02:01 08/06/18 02:20 Influenza Virus Type A (PCR) Negative (NEGATIVE) Influenza Virus Type B (PCR) Negative (NEGATIVE) Red Blood Count 4.50 M/uL (4.17-5.56) Mean Corpuscular Volume 84.3 fL (80.0-96.0) Mean Corpuscular Hemoglobin 27.5 pg (26.0-33.0) Mean Corpuscular Hemoglobin Concent 32.7 g/dL (32.0-36.0) Red Cell Distribution Width 18.4 % (11.5-14.5) Mean Platelet Volume 7.6 fL (7.2-11.1) Neutrophils (%) (Auto) 70.8 % (39.4-72.5) Lymphocytes (%) (Auto) 13.7 % (17.6-49.6) Monocytes (%) (Auto) 10.4 % (4.1-12.4) Eosinophils (%) (Auto) 4.0 % (0.4-6.7) Basophils (%) (Auto) 1.1 % (0.3-1.4) Nucleated RBC Relative Count (auto) 0.0 /100WBC Neutrophils # (Auto) 3.6 K/uL (2.0-7.4) Lymphocytes # (Auto) 0.7 K/uL (1.3-3.6) Monocytes # (Auto) 0.5 K/uL (0.3-1.0) Eosinophils # (Auto) 0.2 K/uL (0.0-0.5) Basophils # (Auto) 0.1 K/uL (0.0-0.1) Nucleated RBC Absolute Count (auto) 0.00 K/uL Sodium Level 138 mmol/L (137-145) Potassium Level 4.0 mmol/L (3.5-5.0) Chloride Level 100 mmol/L (98-107) Carbon Dioxide Level 28 mmol/L (22-31) Blood Urea Nitrogen 22 mg/dl (7-18) Creatinine 0.70 mg/dl (0.52-1.04) Glomerular Filtration Rate Calc > 60.0 Random Glucose 94 mg/dl (75-110) Calcium Level 9.5 mg/dl (8.4-10.2) Total Bilirubin 0.2 mg/dl (0.2-1.3) Aspartate Amino Transf (AST/SGOT) 20 U/L (0-35) Alanine Aminotransferase (ALT/SGPT) 15 U/L (0-56) Alkaline Phosphatase 101 U/L (0-126) B-Type Natriuretic Peptide 55 pg/ml (0-100) Total Protein 8.2 g/dl (6.3-8.2) Albumin 4.4 g/dl (3.5-5.0) Urine Color Straw Urine Clarity Clear Urine pH 6.0 pH (4.8-9.5) Urine Specific [place] 1.016 Urine Protein Negative mg/dL (NEGATIVE) Urine Glucose (UA) Negative mg/dL (NEGATIVE) Urine Ketones Negative mg/dL (NEGATIVE) Urine Blood Negative (NEGATIVE) Urine Nitrite Negative (NEGATIVE) Urine Bilirubin Negative (NEGATIVE) Urine Urobilinogen Negative mg/dL (0.2-1.9) Urine Leukocyte Esterase Negative (NEGATIVE) Urine RBC <1 /HPF (0-2/HPF) Urine WBC <1 /HPF (0-5/HPF) Urine Squamous Epithelial Cells None /LPF (NONE-FEW) Urine Bacteria Negative /HPF (NONE-FEW) Urine Mucus None /HPF (NONE-FEW) Chemistry Test 08/06/18 01:45 08/06/18 02:01 08/06/18 02:20 Influenza Virus Type A (PCR) Negative (NEGATIVE) Influenza Virus Type B (PCR) Negative (NEGATIVE) White Blood Count 5.1 k/uL (4.5-11.0) Red Blood Count 4.50 M/uL (4.17-5.56) Hemoglobin 12.4 g/dL (12.0-16.0) Hematocrit 38.0 % (34.0-47.0) Mean Corpuscular Volume 84.3 fL (80.0-96.0) Mean Corpuscular Hemoglobin 27.5 pg (26.0-33.0) Mean Corpuscular Hemoglobin Concent 32.7 g/dL (32.0-36.0) Red Cell Distribution Width 18.4 % (11.5-14.5) Platelet Count 351 K/uL (150-450) Mean Platelet Volume 7.6 fL (7.2-11.1) Neutrophils (%) (Auto) 70.8 % (39.4-72.5) Lymphocytes (%) (Auto) 13.7 % (17.6-49.6) Monocytes (%) (Auto) 10.4 % (4.1-12.4) Eosinophils (%) (Auto) 4.0 % (0.4-6.7) Basophils (%) (Auto) 1.1 % (0.3-1.4) Nucleated RBC Relative Count (auto) 0.0 /100WBC Neutrophils # (Auto) 3.6 K/uL (2.0-7.4) Lymphocytes # (Auto) 0.7 K/uL (1.3-3.6) Monocytes # (Auto) 0.5 K/uL (0.3-1.0) Eosinophils # (Auto) 0.2 K/uL (0.0-0.5) Basophils # (Auto) 0.1 K/uL (0.0-0.1) Nucleated RBC Absolute Count (auto) 0.00 K/uL Glomerular Filtration Rate Calc > 60.0 Calcium Level 9.5 mg/dl (8.4-10.2) Total Bilirubin 0.2 mg/dl (0.2-1.3) Aspartate Amino Transf (AST/SGOT) 20 U/L (0-35) Alanine Aminotransferase (ALT/SGPT) 15 U/L (0-56) Alkaline Phosphatase 101 U/L (0-126) B-Type Natriuretic Peptide 55 pg/ml (0-100) Total Protein 8.2 g/dl (6.3-8.2) Albumin 4.4 g/dl (3.5-5.0) Urine Color Straw Urine Clarity Clear Urine pH 6.0 pH (4.8-9.5) Urine Specific [place] 1.016 Urine Protein Negative mg/dL (NEGATIVE) Urine Glucose (UA) Negative mg/dL (NEGATIVE) Urine Ketones Negative mg/dL (NEGATIVE) Urine Blood Negative (NEGATIVE) Urine Nitrite Negative (NEGATIVE) Urine Bilirubin Negative (NEGATIVE) Urine Urobilinogen Negative mg/dL (0.2-1.9) Urine Leukocyte Esterase Negative (NEGATIVE) Urine RBC <1 /HPF (0-2/HPF) Urine WBC <1 /HPF (0-5/HPF) Urine Squamous Epithelial Cells None /LPF (NONE-FEW) Urine Bacteria Negative /HPF (NONE-FEW) Urine Mucus None /HPF (NONE-FEW) Urinalysis Test 08/06/18 02:20 Urine Color Straw Urine Clarity Clear Urine pH 6.0 pH (4.8-9.5) Urine Specific [place] 1.016 Urine Protein Negative mg/dL (NEGATIVE) Urine Glucose (UA) Negative mg/dL (NEGATIVE) Urine Ketones Negative mg/dL (NEGATIVE) Urine Blood Negative (NEGATIVE) Urine Nitrite Negative (NEGATIVE) Urine Bilirubin Negative (NEGATIVE) Urine Urobilinogen Negative mg/dL (0.2-1.9) Urine Leukocyte Esterase Negative (NEGATIVE) Urine RBC <1 /HPF (0-2/HPF) Urine WBC <1 /HPF (0-5/HPF) Urine Squamous Epithelial Cells None /LPF (NONE-FEW) Urine Bacteria Negative /HPF (NONE-FEW) Urine Mucus None /HPF (NONE-FEW) EKG/Imaging EKG Interpretation 12 lead EKG: Rhythm: Normal sinus rhythm Outlook: Normal QRS: Normal ST segments: Normal Monitor Interpretation: Normal Sinus Rhythm ED Course/Re-evaluation ED Course Pt presents with cough, elevated BP. She has sgs of bronchitis without e/o pe, pneumonia, flu. She improved with neb; recommend continued supportive tx. Has 02 concentrator and requiring 0-1 L 02 here. Considered but doubt acs. BP elevated; has had similar elevations in past; recommend close monitoring, f/u with pcm for determination of need for blood pressure control. Decision to Disposition Date: Aug 06, 2018 Decision to Disposition Time: 04:30 Depart Departure Latest Vital Signs Vital Signs Date Time Temp Pulse Resp B/P (MAP) Pulse Ox O2 Delivery O2 Flow Rate FiO2 08/06/18 03:57 21 94 Nasal Cannula 1 08/06/18 03:40 181/94 (123) 08/06/18 03:08 86 08/06/18 01:39 98.8 Impression: Primary Impression: Bronchitis Additional Impression: Elevated blood pressure reading Condition: Improved Disposition: ASSISTED LIVING FACILITY Referrals: ALICE ZAMORANO MD (PCP) Patient Instructions: Chronic Bronchitis (ED) Additional Instructions: Follow up with your primary doctor for blood pressure recheck this week to d etermine if you need to have medication adjusted. Use albuterol only as needed for shortness of breath, especially as this can further raise your blood pressure. Please return immediately for worsening symptoms or any concerns. Have your nurses monitor your decubitus ulcer and continue wound care. Problem Qualifiers SAMANTA VELASCO MD Aug 06, 2018 01:48
[2018-08-06] MEDS ORDERED: ALBUTEROL/IPRATROPIUM 3 ML NEB NEB ONE (02:15)
[2018-08-06] MEDS ORDERED: LEVOFLOXACIN/D5W 750 MG/150 ML 150 ML IVPB ONE (02:15)
[2018-08-06 02:24] LABS: PLATELET COUNT, AUTOMATED 351 K/uL (150-450)
[2018-08-06] MEDS ORDERED: IOPAMIDOL 76% 150 ML INFUS BTL 150 ML ONE (02:56)
[2018-08-06] MEDS ORDERED: NS 0.9% 25 ML BAG 50 ML ONE (02:56)
--- NOTE | 2018-08-06 03:06 | EKG ---
FACILITY: [facility] - [place] PATIENT NAME: TAMIKO AREVALO : [id number] MR: [id number] V: [id number] EXAM DATE: ORDERING PHYSICIAN: SAMANTA VELASCO TECHNOLOGIST: OMAR Test Reason : CHEST PAIN Blood Pressure : / mmHG Vent. Rate : 081 BPM Atrial Rate : 081 BPM P-R Int : 180 ms QRS Dur : 090 ms QT Int : 370 ms P-R-T Axes : 049 021 036 degrees QTc Int : 429 ms Normal sinus rhythm Normal ECG When compared with ECG of 23-OCT-2016 09:20, Relatively unchanged from previous Confirmed by DU VO ([id number]) on 08/06/2018 6:43:36 AM Referred By: Confirmed By:DU VO
--- NOTE | 2018-08-06 03:21 | RADIOLOGY IMAGING REPORT ---
FACILITY: [facility] - [place], [place] PATIENT NAME: Vera Tidwell : 1940 MR: [id number] V: [id number] EXAM DATE: ORDERING PHYSICIAN: SAMANTA VELASCO TECHNOLOGIST: Location: [facility] [place] Patient: Vera Tidwell : 1940 Visit/Account:[id number] Date of Sevice: 08/06/2018 PORTABLE CHEST: Indication: Dyspnea. Technique: A single frontal film was obtained. Comparison: None available. Skeletal and soft tissue structures: Multiple old rib fractures are observed. There is moderate scoli osis and degenerative changes in the thoracic spine. There are mild degenerative changes in the shoul ders. No acute skeletal deformity is clearly identified. Heart and mediastinum: Within normal limits. Lung rangel: Well-expanded. No focal parenchymal process is clearly identified. Pleural spaces: Unremarkable. Impression: No acute process. Report Dictated By: Tico Alberts MD at 08/06/2018 3:02 AM Report E-Signed By: Tico Alberts MD at 08/06/2018 3:04 AM WSN:[id number]
[2018-08-06 04:00] VITALS: BP 174/92
--- NOTE | 2018-08-06 04:26 | RADIOLOGY IMAGING REPORT ---
FAC[place] [facility] [place]IENT NAME: Vera Tidwell : 1940 MR: [id number] V: [id number] EXAM DATE: ORDERING PHYSICIAN: SAMANTA VLEASCO TECHNOLOGIST: Location: [facility] - [place] Patient: Vera Tidwell : 1940 Visit/Account:[id number] Date of Sevice: 08/06/2018 CT angiogram of the chest: Indication: Dyspnea. Technique: Helical CT was performed through the chest following IV contrast enhancement with 75 cc of Isovue 370. Multiplanar reconstructions and MIP images are reviewed. One of the following dose optimization techniques was utilized in the performance of this exam: Autom ated exposure control; adjustment of the mA and/or kV according to the patient's size; or use of an i terative reconstruction technique. Specific details can be referenced in the facility's radiology CT exam operational policy. Comparison: 06/12/2017 Pulmonary arteries: There is uniform contrast enhancement. There are no signs of pulmonary emboli. Aorta and great vessels: There is uniform contrast enhancement. There is no evidence of dissection or aneurysm. Heart and pericardial soft tissues: Normal limits. Mediastinal soft tissues: Unremarkable. Lung rangel: There is a small area of parenchymal consolidation in the left lower lobe, compatible wi th atelectasis or fibrosis. There is no evidence of mass or nodule. Pleural spaces: There is minimal fluid in the left pleural space. Otherwise unremarkable. Skeletal structures: There are diffuse sclerotic skeletal lesions in the spine and ribs, compatible w ith metastatic disease. There is chronic scoliosis and degenerative changes in the spine. No acute sk eletal deformity is clearly identified. Upper abdomen: Unremarkable, as visualized. IMPRESSION: No evidence of pulmonary emboli. No acute parenchymal or pleural process is identified. Report Dictated By: Tico Alberts MD at 08/06/2018 4:05 AM Report E-Signed By: Tico Alberts MD at 08/06/2018 4:21 AM WSN:[id number]
[2018-08-06] MEDS ORDERED: ALBUTEROL 8 GM INHALER INH ONE (04:30)
[2018-08-08] MEDS ORDERED: PRAM1.5T5 (14:11)
== END 2018-08-06 05:05 | disposition home or self-care (01) ==
LOC: ER 01:45
DX: J40 Bronchitis, not specified as acute or chronic (principal); I10 Essential (primary) hypertension
CPT/HCPCS: 71045; 71275; 81001; 83880; 85025; 87502; 93005; 94640; 96365; 99284; A4353; J1956; J7620; Q9967; 82040; 82247; 82310; 82374; 82435; 82565; 82947; 84075; 84132; 84155; 84295; 84450; 84460; 84520

== ENCOUNTER → 2018-08-06 | Outpatient (CLI) | payer MEDICARE, BC ==
[~2018-08-06] MED LIST changes: +ALB18R INH; +AMLO-125 PO; +AZIT-18 PO; +CYA1000 PO; +DICL100G7 TP; +POLY17PO25 PO; +PRAM1.5T5 PO; +[UNRECOGNIZED DRUG - CODE] TD
[2018-08-09 14:11] VITALS: BMI 24.2
== END ==
LOC: AMB 04:54
PROVIDERS: ATTEND Nurse Practitioner
DX: I10 Essential (primary) hypertension (principal)
CPT/HCPCS: A0425; A0428

== ENCOUNTER → 2018-08-06 | Outpatient (CLI) | payer MEDICARE, BC ==
[2018-08-09 14:11] VITALS: BMI 24.2
== END ==
LOC: AMB 01:08
PROVIDERS: ATTEND Nurse Practitioner
DX: I10 Essential (primary) hypertension (principal); R06.02 Shortness of breath
CPT/HCPCS: A0425; A0427

== ENCOUNTER 2018-08-08 09:31 | Inpatient (IN) | payer MEDICARE, BC ==
[~2018-08-08] VITALS: Ht 149.9 cm; Wt 54.4 kg
--- NOTE | 2018-08-08 09:52 | ER Report ---
History and Physical Time Seen By MD: 09:51 HPI/ROS CHIEF COMPLAINT: Fever cough respiratory distress HISTORY OF PRESENT ILLNESS: Patient is a 77-year-old [place] for fever to 102.5 with productive cough and respiratory distress. She states symptoms began last evening. Patient has a history of Parkinson's disease which she is currently being treated for. She admits to shortness of breath but no chest pain or palpitations although she does feel like her heart is beating "fast". She denies abdominal pain she denies nausea vomiting or diarrhea. She denies headache. Does report chills but no true rigors; Patient was seen on August 06 for similar symptoms including cough and some shortness of breath. Workup was essentially unremarkable at that time and she was diagnosed with bronchitis and return to her detention facility. Started on albuterol that time. No antibiotics. REVIEW OF SYSTEMS: Constitutional: Fever, chills Eyes: No discharge. ENT: No sore throat. Cardiovascular: No chest pain, no palpitations. Fast heart rate Respiratory: Productive cough, shortness of breath Gastrointestinal: No abdominal pain, no vomiting. Genitourinary: No hematuria. Musculoskeletal: No back pain. Skin: No rashes. Neurological: No headache. Allergies: Coded Allergies: amantadine (Verified Allergy, Severe, hallucinations and falling, 08/08/18) Sulfa (Sulfonamide Antibiotics) (Verified Allergy, Unknown, 08/08/18) Home Meds Active Scripts Carbidopa/Levodopa (SINEMET 25-100 MG TABLET) 1 Each Tablet, 1 EACH PO TID for 90 Days, #360 TAB 4 Refills Prov:ALICE ZAMORANO MD 07/15/18 Pramipexole Di-Hcl (MIRAPEX ER) 1.5 Mg Tab.er.24h, 1.5 MG PO QDAY for 90 Days, #90 TAB Prov:ALICE ZAMORANO MD 07/05/18 Amlodipine Besylate (AMLODIPINE BESYLATE) 2.5 Mg Tablet, 1 TAB PO QDAY for 90 Days, #90 TAB Prov:ALICE ZAMORANO MD 07/01/18 Polyethylene Glycol 3350 (POLYETHYLENE GLYCOL 3350) 17 Gm Powd.pack, 8 GM PO QDAY for 90 Days, #45 PACKET 4 Refills Prov:ALICE ZAMORANO MD 04/12/18 Docusate Sodium (DOCUSATE SODIUM) 100 Mg Capsule, 100 MG PO BID for 90 Days, #180 CAPSULE 4 Refills Prov:ALICE ZAMORANO MD 02/10/18 Bisacodyl (BISAC-EVAC) 10 Mg Supp.rect, 10 MG CA QDAY PRN for CONSTIPATION for 30 Days, #30 SUPP.RECT Prov:ALICE ZAMORANO MD 02/10/18 Acetaminophen 500 Mg Tab (ACETAMINOPHEN EXTRA STRENGTH) 500 Mg Tablet, 1000 MG PO TID for 90 Days, #270 TAB 4 Refills Prov:ALICE ZAMORANO MD 02/10/18 Diclofenac Sodium 1% Gel (VOLTAREN 1% GEL) 100 Gm Gel..gram., 2 GM TOP BID for 30 Days, #1 TUBE Prov:ALICE ZAMORANO MD 02/09/18 Cholecalciferol (Vitamin D3) (VITAMIN D3) 1,000 Unit Tablet, 1 TAB PO DAILY for 90 Days, #90 TAB 4 Refills Prov:ALICE ZAMORANO MD 01/27/18 Reported Medications Oxycodone Hcl (OXYCODONE HCL) 5 Mg Tablet, 1-2 TAB PO Q6H PRN for PAIN 1 tab q6prn for pain rated 1-5 May have 2 tab q6prn for pain rated 6-10 07/15/18 Carboxymethylcellulose Sodium (THERA TEARS) 1 Each Droper.gel, 1 EACH OP PRN 04/13/18 Loperamide HCl (Imodium A-D) 2 Mg Capsule, 2 CAP PO DIRECTED PRN for DIARRHEA 04/13/18 Calcium Carbonate/Mag Hydrox (ANTACID CHEWABLE TABLET) 1 Each Tab.chew, 2 TAB.CHEW PO Q2H PRN for HEARTBURN, TAB.CHEW 04/13/18 Mag Hydrox/Aluminum Hyd/Simeth (Maalox Advanced Suspension) 200 Mg-200 Mg-20 Mg/5 Ml Oral.susp, 15 ML PO Q4H PRN for PRN 04/13/18 Aspirin (ASPIRIN) 325 Mg Tablet, 1 TAB PO ONCE PRN for chest pain, TAB 04/13/18 Acetaminophen (TYLENOL) 325 Mg Tablet, 1-2 TAB PO Q4H PRN for PAIN/TEMP OVER 100.4, TAB 04/13/18 Guaifenesin/Dextromethorphan (Robitussin Cough-Chest Dm Liq) 100 Mg-5 Mg/5 Ml Liquid, 5 ML PO Q4-6H PRN for COUGH 04/13/18 Oxygen (OXYGEN) Inha, 2 L INH, L 12/31/17 Past Medical/Surgical History Past medical history for Parkinson's disease; History of hypertension, history of osteopenia Hx Smoking: No Smoking Status: Never Smoker Exposure to Second Hand Smoke?: No Hx Substance Use Disorder: No Hx Alcohol Use: No Constitutional Vital Sign - Last 24 Hours 08/08/18 08/08/18 08/08/18 08/08/18 09:31 09:39 09:44 09:49 Temp 102.9 Pulse 124 115 Resp 40 24 B/P (MAP) 182/106 (131) 182/106 Pulse Ox 81 81 O2 Delivery Room Air Room Air O2 Flow Rate 2.0 08/08/18 08/08/18 08/08/18 08/08/18 10:00 10:01 10:27 10:31 Temp 101.7 Pulse 117 112 Resp 33 32 B/P (MAP) 178/99 (125) Pulse Ox 90 92 O2 Delivery Nasal Cannula Nasal Cannula O2 Flow Rate 2 2 08/08/18 08/08/18 08/08/18 08/08/18 10:52 10:57 11:00 11:02 Pulse 107 107 Resp 32 18 B/P (MAP) 140/78 (98) 129/74 (92) Pulse Ox 89 O2 Delivery Nasal Cannula O2 Flow Rate 2 08/08/18 08/08/18 11:02 11:07 Pulse 108 Resp 18 Pulse Ox 90 O2 Delivery Nasal Cannula O2 Flow Rate 2.0 Physical Exam General/Constitutional: Patient is awake, alert, appearing with increased respiratory rate in excessory-muscle use Head: Normocephalic and atraumatic. Eyes: Conjunctival clear, Pupils are equal and reactive to light. Extraocular muscles are intact and symmetrical. Sclera are clear and anicteric. Nares: No rhinorrhea or bleeding. Turbinates are pink and moist. Oropharyngeal: Mucous membranes are moist. There is no pharyngeal erythema or exudate. There are no palatal petechiae. Uvula is midline and symmetrical. Neck: Supple, no adenopathy. Cardiovascular: Heart is regular rate and rhythm without audible murmurs, rubs or gallops. Pulmonary: Lungs are noted for wheezing and rhonchi throughout all lung rangel. Patient is using accessory muscles of respiration. Abdomen: Soft, nontender, no guarding or peritoneal signs. Extremities: No gross deformities, No peripheral cyanosis. Able to move all 4 extremities. Patient has a resting tremor secondary to Parkinson's disorder Neuro: Alert and oriented X3, Skin: No rashes, skin is warm dry and well perfused. Medical Decision Making Data Points Result Diagram: 08/08/18 1015 08/08/18 1040 Laboratory Hematology Test 08/08/18 10:04 08/08/18 10:15 08/08/18 10:40 08/08/18 10:54 Influenza Virus Type A (PCR) Negative (NEGATIVE) Influenza Virus Type B (PCR) Negative (NEGATIVE) Red Blood Count 4.52 M/uL (4.17-5.56) Mean Corpuscular Volume 83.6 fL (80.0-96.0) Mean Corpuscular Hemoglobin 26.8 pg (26.0-33.0) Mean Corpuscular Hemoglobin Concent 32.1 g/dL (32.0-36.0) Red Cell Distribution Width 18.3 % (11.5-14.5) Mean Platelet Volume 7.7 fL (7.2-11.1) Neutrophils (%) (Auto) 91.1 % (39.4-72.5) Lymphocytes (%) (Auto) 3.7 % (17.6-49.6) Monocytes (%) (Auto) 4.7 % (4.1-12.4) Eosinophils (%) (Auto) 0.2 % (0.4-6.7) Basophils (%) (Auto) 0.3 % (0.3-1.4) Nucleated RBC Relative Count (auto) 0.0 /100WBC Neutrophils # (Auto) 8.1 K/uL (2.0-7.4) Lymphocytes # (Auto) 0.3 K/uL (1.3-3.6) Monocytes # (Auto) 0.4 K/uL (0.3-1.0) Eosinophils # (Auto) 0.0 K/uL (0.0-0.5) Basophils # (Auto) 0.0 K/uL (0.0-0.1) Nucleated RBC Absolute Count (auto) 0.00 K/uL Prothrombin Time 13.0 seconds (12.0-14.4) Prothromb Time International Ratio 0.98 Activated Partial Thromboplast Time 31 seconds (23-35) Sodium Level 136 mmol/L (137-145) Potassium Level 3.9 mmol/L (3.5-5.0) Chloride Level 102 mmol/L (98-107) Carbon Dioxide Level 24 mmol/L (22-31) Blood Urea Nitrogen 19 mg/dl (7-18) Creatinine 0.60 mg/dl (0.52-1.04) Glomerular Filtration Rate Calc > 60.0 Random Glucose 122 mg/dl (75-110) Lactate 1.0 mmol/L (0.7-2.1) Calcium Level 8.2 mg/dl (8.4-10.2) Total Bilirubin 0.3 mg/dl (0.2-1.3) Aspartate Amino Transf (AST/SGOT) 24 U/L (0-35) Alanine Aminotransferase (ALT/SGPT) 28 U/L (0-56) Alkaline Phosphatase 98 U/L (0-126) Total Protein 7.2 g/dl (6.3-8.2) Albumin 3.7 g/dl (3.5-5.0) Urine Color Straw Urine Clarity Clear Urine pH 7.0 pH (4.8-9.5) Urine Specific [place] 1.014 Urine Protein Negative mg/dL (NEGATIVE) Urine Glucose (UA) Negative mg/dL (NEGATIVE) Urine Ketones Negative mg/dL (NEGATIVE) Urine Blood Negative (NEGATIVE) Urine Nitrite Negative (NEGATIVE) Urine Bilirubin Negative (NEGATIVE) Urine Urobilinogen Negative mg/dL (0.2-1.9) Urine Leukocyte Esterase Negative (NEGATIVE) Urine RBC None /HPF (0-2/HPF) Urine WBC <1 /HPF (0-5/HPF) Urine Squamous Epithelial Cells None /LPF (NONE-FEW) Urine Bacteria Negative /HPF (NONE-FEW) Urine Mucus None /HPF (NONE-FEW) Chemistry Test 08/08/18 10:04 08/08/18 10:15 08/08/18 10:40 08/08/18 10:54 Influenza Virus Type A (PCR) Negative (NEGATIVE) Influenza Virus Type B (PCR) Negative (NEGATIVE) White Blood Count 8.8 k/uL (4.5-11.0) Red Blood Count 4.52 M/uL (4.17-5.56) Hemoglobin 12.1 g/dL (12.0-16.0) Hematocrit 37.8 % (34.0-47.0) Mean Corpuscular Volume 83.6 fL (80.0-96.0) Mean Corpuscular Hemoglobin 26.8 pg (26.0-33.0) Mean Corpuscular Hemoglobin Concent 32.1 g/dL (32.0-36.0) Red Cell Distribution Width 18.3 % (11.5-14.5) Platelet Count 328 K/uL (150-450) Mean Platelet Volume 7.7 fL (7.2-11.1) Neutrophils (%) (Auto) 91.1 % (39.4-72.5) Lymphocytes (%) (Auto) 3.7 % (17.6-49.6) Monocytes (%) (Auto) 4.7 % (4.1-12.4) Eosinophils (%) (Auto) 0.2 % (0.4-6.7) Basophils (%) (Auto) 0.3 % (0.3-1.4) Nucleated RBC Relative Count (auto) 0.0 /100WBC Neutrophils # (Auto) 8.1 K/uL (2.0-7.4) Lymphocytes # (Auto) 0.3 K/uL (1.3-3.6) Monocytes # (Auto) 0.4 K/uL (0.3-1.0) Eosinophils # (Auto) 0.0 K/uL (0.0-0.5) Basophils # (Auto) 0.0 K/uL (0.0-0.1) Nucleated RBC Absolute Count (auto) 0.00 K/uL Prothrombin Time 13.0 seconds (12.0-14.4) Prothromb Time International Ratio 0.98 Activated Partial Thromboplast Time 31 seconds (23-35) Glomerular Filtration Rate Calc > 60.0 Lactate 1.0 mmol/L (0.7-2.1) Calcium Level 8.2 mg/dl (8.4-10.2) Total Bilirubin 0.3 mg/dl (0.2-1.3) Aspartate Amino Transf (AST/SGOT) 24 U/L (0-35) Alanine Aminotransferase (ALT/SGPT) 28 U/L (0-56) Alkaline Phosphatase 98 U/L (0-126) Total Protein 7.2 g/dl (6.3-8.2) Albumin 3.7 g/dl (3.5-5.0) Urine Color Straw Urine Clarity Clear Urine pH 7.0 pH (4.8-9.5) Urine Specific [place] 1.014 Urine Protein Negative mg/dL (NEGATIVE) Urine Glucose (UA) Negative mg/dL (NEGATIVE) Urine Ketones Negative mg/dL (NEGATIVE) Urine Blood Negative (NEGATIVE) Urine Nitrite Negative (NEGATIVE) Urine Bilirubin Negative (NEGATIVE) Urine Urobilinogen Negative mg/dL (0.2-1.9) Urine Leukocyte Esterase Negative (NEGATIVE) Urine RBC None /HPF (0-2/HPF) Urine WBC <1 /HPF (0-5/HPF) Urine Squamous Epithelial Cells None /LPF (NONE-FEW) Urine Bacteria Negative /HPF (NONE-FEW) Urine Mucus None /HPF (NONE-FEW) Coagulation Test 08/08/18 10:15 Prothrombin Time 13.0 seconds Prothromb Time International Ratio 0.98 Activated Partial Thromboplast Time 31 seconds Urinalysis Test 08/08/18 10:54 Urine Color Straw Urine Clarity Clear Urine pH 7.0 pH (4.8-9.5) Urine Specific [place] 1.014 Urine Protein Negative mg/dL (NEGATIVE) Urine Glucose (UA) Negative mg/dL (NEGATIVE) Urine Ketones Negative mg/dL (NEGATIVE) Urine Blood Negative (NEGATIVE) Urine Nitrite Negative (NEGATIVE) Urine Bilirubin Negative (NEGATIVE) Urine Urobilinogen Negative mg/dL (0.2-1.9) Urine Leukocyte Esterase Negative (NEGATIVE) Urine RBC None /HPF (0-2/HPF) Urine WBC <1 /HPF (0-5/HPF) Urine Squamous Epithelial Cells None /LPF (NONE-FEW) Urine Bacteria Negative /HPF (NONE-FEW) Urine Mucus None /HPF (NONE-FEW) EKG/Imaging Imaging FACILITY: [facility] [place] PATIENT NAME: Vera Tidwell : 1940 MR: [id number] V: [id number] EXAM DATE: ORDERING PHYSICIAN: SAMANTA ALY TECHNOLOGIST: Location: [facility] [place] Patient: Vera Tidwell : 1940 Visit/Account:[id number] Date of Sevice: 08/08/2018 XR CHEST SPECIAL VIEW HISTORY: Cough, fever, lateral view COMPARISON: Examination of the chest August 08, 2018 FINDINGS: The lateral view does suggest increased density overlying the bones and posterior mediastinal structures indicative of a left lower lobe consolidation. Likely small effusion. IMPRESSION: Lateral view is suggestive of a retrocardiac left lower lobe infiltrate with likely a small effusion. Report Dictated By: Allen Banks MD at 08/08/2018 11:58 AM Report E-Signed By: Allen Banks MD at 08/08/2018 11:59 AM WSN:[id number] ED Course/Re-evaluation ED Course Patient meets sepsis criteria. We will give antipyretics fluid bolus we will st art antibiotics based on likelihood of pneumonia. Likely admission. Decision to Disposition Date: Aug 08, 2018 Decision to Disposition Time: 12:08 Depart Departure Latest Vital Signs Vital Signs Date Time Temp Pulse Resp B/P (MAP) Pulse Ox O2 Delivery O2 Flow Rate FiO2 08/08/18 11:07 108 18 08/08/18 11:02 90 Nasal Cannula 2.0 08/08/18 11:00 129/74 (92) 08/08/18 10:27 101.7 Impression: Primary Impression: Pneumonia Condition: Improved Disposition: Admitted from ER (To Aliya Suh) Referrals: ALICE ZAMORANO MD (PCP) Problem Qualifiers Primary Impression: Pneumonia Pneumonia type: due to unspecified organism Laterality: left Lung location: lower lobe of lung Qualified Codes: J18.1 - Lobar pneumonia, unspecified organism SAMANTA ALY MD Aug 08, 2018 09:52
[2018-08-08] MEDS ORDERED: NS 0.9% IV ONE (09:55)
--- NOTE | 2018-08-08 10:05 | EKG ---
FACILITY: [facility] [place] PATIENT NAME: TAMIKO AREVALO : [id number] MR: [id number] V: [id number] EXAM DATE: ORDERING PHYSICIAN: SAMANTA ALY TECHNOLOGIST: MARIA C Nevarez Reason : RESPIRATORY Blood Pressure : / mmHG Vent. Rate : 117 BPM Atrial Rate : 117 BPM P-R Int : 160 ms QRS Dur : 126 ms QT Int : 350 ms P-R-T Axes : 059 027 079 degrees QTc Int : 488 ms Sinus tachycardia Nonspecific interventricular conduction delay - probable incomplete LBBB Abnormal ECG Confirmed by BEN PHILLIPS ([id number]) on 08/08/2018 7:39:57 PM Referred By: JERMAIN Confirmed By:BEN PHILLIPS
[2018-08-08] MEDS ORDERED: ACETAMINOPHEN 325 MG TAB PO ONE (10:10)
[2018-08-08] MEDS ORDERED: AZITHROMYCIN(*) 500 MG 500 MG in NS(*) 0.9% 250 ML BAG 250 ML IVPB ONE (10:15)
[2018-08-08] MEDS ORDERED: cefTRIAXone 1 GM VIAL IVP ONE (10:15)
[2018-08-08 10:29] LABS: PLATELET COUNT, AUTOMATED 328 K/uL (150-450)
[2018-08-08 10:39] LABS: INR 0.98
[2018-08-08] MEDS ORDERED: ALBUTEROL/IPRATROPIUM 3 ML NEB NEB ONE (10:50)
--- NOTE | 2018-08-08 10:52 | RADIOLOGY IMAGING REPORT ---
FACILITY: [facility] PATIENT NAME: Vera Tidwell : 1940 MR: [id number] V: [id number] EXAM DATE: ORDERING PHYSICIAN: SAMANTA ALY TECHNOLOGIST: Location: [facility] [place] Patient: Vera Tidwell : 1940 Visit/Account:[id number] Date of Sevice: 08/08/2018 Single view of the chest Indication: Cough and fever. Comparison: X-ray and CT examination from August 06. Findings: The heart appears mildly enlarged. Volumes are low which limits the evaluation of the left lower lobe . No definite new focal consolidation. Old bilateral rib fractures are noted. IMPRESSION: 1. Stable cardiomegaly. 2. Mild prominence of the interstitium throughout which could be from the low volumes or a viral inte rstitial process. There is no new focal infiltrate. 3. Due to the cardiac silhouette and the patient's rotation to left, there is limitation to the visua lization of the left lower lobe. If further evaluation of this area is needed, a lateral radiograph c ould be performed. Report Dictated By: Allen Banks MD at 08/08/2018 10:44 AM Report E-Signed By: Allen Banks MD at 08/08/2018 10:47 AM WSN:[id number]
--- NOTE | 2018-08-08 12:02 | RADIOLOGY IMAGING REPORT ---
FACILITY: [facility] - [place] PATIENT NAME: Vera Tidwell : 1940 MR: [id number] V: [id number] EXAM DATE: ORDERING PHYSICIAN: SAMANTA ALY TECHNOLOGIST: Location: [facility] [place] Patient: Vera Tidwell : 1940 Visit/Account:[id number] Date of Sevice: 08/08/2018 XR CHEST SPECIAL VIEW HISTORY: Cough, fever, lateral view COMPARISON: Examination of the chest August 08, 2018 FINDINGS: The lateral view does suggest increased density overlying the bones and posterior mediastinal structu res indicative of a left lower lobe consolidation. Likely small effusion. IMPRESSION: Lateral view is suggestive of a retrocardiac left lower lobe infiltrate with likely a small effusion. Report Dictated By: Allen Banks MD at 08/08/2018 11:58 AM Report E-Signed By: Allen Banks MD at 08/08/2018 11:59 AM WSN:[id number]
[2018-08-08 12:47] VITALS: BP 143/73
[2018-08-08] MEDS ORDERED: ALBUTEROL 2.5 MG/3 ML NEB NEB PRN (13:50)
[2018-08-08] MEDS ORDERED: FLUSH 10 ML SYR IVP PRN (13:50)
--- NOTE | 2018-08-08 14:06 | History & Physical ---
History of Present Illness Chief Complaint Cough History of Present Illness 77yo female with PMHx significant for metastatic breast cancer, Parkinson's disease, HTN. She currently resides at [facility]. She had a hip fracture repaired last summer and has been minimally ambulatory with a walker, but usually uses wheelchair for mobility. She reports onset of minimally productive cough approximately 3 days ago. It has been associated with dyspnea and fevers/sweats. She denies any N/V and has been eating/drinking well. She denies any urinary complaints, but does have chronic incontinence. She was evaluated in [facility] ER and found to have left basilar infiltrate. She was recommended for admission. History Problems: (1) Stage IV carcinoma of breast Status: Chronic (2) Pathologic acetabular fracture Status: Acute (3) Parkinson disease Status: Chronic (4) History of total hip arthroplasty Status: Resolved (5) HTN (hypertension) Status: Chronic Home Meds Active Scripts Carbidopa/Levodopa (SINEMET 25-100 MG TABLET) 1 Each Tablet, 1 EACH PO TID for 90 Days, #360 TAB 4 Refills Prov:ALICE ZAMORANO MD 07/15/18 Pramipexole Di-Hcl (MIRAPEX ER) 1.5 Mg Tab.er.24h, 1.5 MG PO QDAY for 90 Days, #90 TAB Prov:ALICE ZAMORANO MD 07/05/18 Amlodipine Besylate (AMLODIPINE BESYLATE) 2.5 Mg Tablet, 1 TAB PO QDAY for 90 Days, #90 TAB Prov:ALICE ZAMORANO MD 07/01/18 Polyethylene Glycol 3350 (POLYETHYLENE GLYCOL 3350) 17 Gm Powd.pack, 8 GM PO QDAY for 90 Days, #45 PACKET 4 Refills Prov:ALICE ZAMORANO MD 04/12/18 Docusate Sodium (DOCUSATE SODIUM) 100 Mg Capsule, 100 MG PO BID for 90 Days, #180 CAPSULE 4 Refills Prov:ALICE ZAMORANO MD 02/10/18 Bisacodyl (BISAC-EVAC) 10 Mg Supp.rect, 10 MG NV QDAY PRN for CONSTIPATION for 30 Days, #30 SUPP.RECT Prov:ALICE ZAMORANO MD 02/10/18 Acetaminophen 500 Mg Tab (ACETAMINOPHEN EXTRA STRENGTH) 500 Mg Tablet, 1000 MG PO TID for 90 Days, #270 TAB 4 Refills Prov:ALICE ZAMORANO MD 02/10/18 Diclofenac Sodium 1% Gel (VOLTAREN 1% GEL) 100 Gm Gel..gram., 2 GM TOP BID for 30 Days, #1 TUBE Prov:ALICE ZAMORANO MD 02/09/18 Cholecalciferol (Vitamin D3) (VITAMIN D3) 1,000 Unit Tablet, 1 TAB PO DAILY for 90 Days, #90 TAB 4 Refills Prov:ALICE ZAMORANO MD 01/27/18 Reported Medications Oxycodone Hcl (OXYCODONE HCL) 5 Mg Tablet, 1-2 TAB PO Q6H PRN for PAIN 1 tab q6prn for pain rated 1-5 May have 2 tab q6prn for pain rated 6-10 07/15/18 Carboxymethylcellulose Sodium (THERA TEARS) 1 Each Droper.gel, 1 EACH OP PRN 04/13/18 Loperamide HCl (Imodium A-D) 2 Mg Capsule, 2 CAP PO DIRECTED PRN for DIARRHEA 04/13/18 Calcium Carbonate/Mag Hydrox (ANTACID CHEWABLE TABLET) 1 Each Tab.chew, 2 TAB.CHEW PO Q2H PRN for HEARTBURN, TAB.CHEW 04/13/18 Mag Hydrox/Aluminum Hyd/Simeth (Maalox Advanced Suspension) 200 Mg-200 Mg-20 Mg/5 Ml Oral.susp, 15 ML PO Q4H PRN for PRN 04/13/18 Aspirin (ASPIRIN) 325 Mg Tablet, 1 TAB PO ONCE PRN for chest pain, TAB 04/13/18 Acetaminophen (TYLENOL) 325 Mg Tablet, 1-2 TAB PO Q4H PRN for PAIN/TEMP OVER 100.4, TAB 04/13/18 Guaifenesin/Dextromethorphan (Robitussin Cough-Chest Dm Liq) 100 Mg-5 Mg/5 Ml Liquid, 5 ML PO Q4-6H PRN for COUGH 04/13/18 Oxygen (OXYGEN) Inha, 2 L INH, L 12/31/17 Allergies: Coded Allergies: amantadine (Verified Allergy, Severe, hallucinations and falling, 08/08/18) Sulfa (Sulfonamide Antibiotics) (Verified Allergy, Unknown, 08/08/18) Patient History: FH: cataracts FATHER, , Age:65 FH: emphysema FATHER, , Age:65 FH: heart disease FATHER, , Age:65 BROTHER OR SISTER FH: hyperthyroidism MOTHER, , Age:93 Hx Smoking: No Smoking Status: Never Smoker Exposure to Second Hand Smoke?: No Caffeine Intake: Soda Caffeine/Cups Per Day: 1 diet coke Hx Alcohol Use: No Hx Substance Use Disorder: No Social Drug Use: Never Review of Systems Constitutional: Fever, Chills, Night Sweats Neurological: Weakness Cardiovascular: No Chest Pain, No Palpitations Respiratory: Shortness of Breath, Cough Gastrointestinal: No Nausea, No Vomiting, No Diarrhea Genitourinary: Urinary Incontinence Musculoskeletal: Impaired Mobility Exam Vital Signs Vital Signs Date Time Temp Pulse Resp B/P (MAP) Pulse Ox O2 Delivery O2 Flow Rate FiO2 08/08/18 12:51 92 Nasal Cannula 2.0 08/08/18 12:47 99.1 100 32 143/73 (96) General Appearance: Alert, Awake Neuro: Other (slight resting tremor/diffuse rigidty in all extremities/gait not evaluated) Eyes: Other (decreased facial expressions) ENT: Oropharynx Clear Cardiovascular: Regular Rate and Rhythm Respiratory: Other (rales at left base/no wheezes) Chest: No Tenderness GI: Abd Soft and Non-Tender : No CVA Tenderness Musculoskeletal: Other (rigidity all extremities) Extremities: Warm, Perfused Integumentary: Generalized Fragile Skin Medical Decision Making Data Points Result Diagram: 08/08/18 1015 08/08/18 1040 Item Value Date Time Urine Color Straw 08/08/18 1054 Urine Clarity Clear 08/08/18 1054 Urine pH 7.0 pH 08/08/18 1054 Urine Specific [place] 1.014 08/08/18 1054 Urine Protein Negative mg/dL 08/08/18 1054 Urine Glucose (UA) Negative mg/dL 08/08/18 1054 Urine Ketones Negative mg/dL 08/08/18 1054 Urine Blood Negative 08/08/18 1054 Urine Nitrite Negative 08/08/18 1054 Urine Bilirubin Negative 08/08/18 1054 Urine Urobilinogen Negative mg/dL 08/08/18 1054 Urine Leukocyte Esterase Negative 08/08/18 1054 Urine RBC None /HPF 08/08/18 1054 Urine WBC <1 /HPF 08/08/18 1054 Urine Squamous Epithelial Cells None /LPF 08/08/18 1054 Urine Bacteria Negative /HPF 08/08/18 1054 Urine Mucus None /HPF 08/08/18 1054 Influenza Virus Type A (PCR) Negative 08/08/18 1004 Influenza Virus Type B (PCR) Negative 08/08/18 1004 Albumin 3.7 g/dl 08/08/18 1040 Total Protein 7.2 g/dl 08/08/18 1040 Alkaline Phosphatase 98 U/L 08/08/18 1040 Alanine Aminotransferase (ALT/SGPT) 28 U/L 08/08/18 1040 Aspartate Amino Transf (AST/SGOT) 24 U/L 08/08/18 1040 Total Bilirubin 0.3 mg/dl 08/08/18 1040 Calcium Level 8.2 mg/dl L 08/08/18 1040 Lactate 1.0 mmol/L 08/08/18 1040 Activated Partial Thromboplast Time 31 seconds 08/08/18 1015 Prothromb Time International Ratio 0.98 08/08/18 1015 Prothrombin Time 13.0 seconds 08/08/18 1015 EKG / Imaging Imaging PATIENT NAME: Vera Tidwell : 1940 MR: [id number] V: [id number] EXAM DATE: ORDERING PHYSICIAN: SAMANTA ALY TECHNOLOGIST: Location: [facility] Patient: Vera Tidwell : 1940 Visit/Account:[id number] Date of Sevice: 08/08/2018 XR CHEST SPECIAL VIEW HISTORY: Cough, fever, lateral view COMPARISON: Examination of the chest August 08, 2018 FINDINGS: The lateral view does suggest increased density overlying the bones and posterior mediastinal structures indicative of a left lower lobe consolidation. Likely small effusion. IMPRESSION: Lateral view is suggestive of a retrocardiac left lower lobe infiltrate with likely a small effusion. Report Dictated By: Allen Banks MD at 08/08/2018 11:58 AM Report E-Signed By: Allen Banks MD at 08/08/2018 11:59 AM [id number] Assessment and Plan Problems: (1) Pneumonia Status: Acute Assessment & Plan: Left lower lobe infiltrate on CXR. She has been placed on IV Rocephin and Zithromax. Will give supplemental oxygen and respiratory treatments as needed. Cultures were obtained in the ER. (2) Parkinson disease Status: Chronic Assessment & Plan: Will continue her Mirapex and Exelon. (3) HTN (hypertension) Status: Chronic Assessment & Plan: Monitor BPs and resume amlodipine as needed. 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 Didier Eric in the [facility]. She is on Herceptin and Perjeta. Copies to: ALICE ZAMORANO MD; MACKENZIE CHAPPELL MD ; Venous Thromboembolism Antithrombotics Is Pt On Any Antithrombotics?: Yes Exam Sepsis Risk: Sepsis Risk Problem Qualifiers (1) Pneumonia: Pneumonia type: due to unspecified organism Laterality: left Lung location: lower lobe of lung Qualified Codes: J18.1 - Lobar pneumonia, unspecified or ganism BEN PHILLIPS MD Aug 08, 2018 14:06
[2018-08-08] MEDS ORDERED: DICL100G7 TP (14:11)
[2018-08-08] MEDS ORDERED: CARB-127 PO (14:11)
[2018-08-08] MEDS ORDERED: OXYGENHOME INH (14:11)
[2018-08-08] MEDS ORDERED: PRAM1.5T5 PO (14:11)
[2018-08-08] MEDS ORDERED: [UNRECOGNIZED DRUG - CODE] TD (14:11)
[2018-08-08] MEDS ORDERED: POLY17PO25 PO (14:11)
[2018-08-08] MEDS ORDERED: ALB18R INH (14:11)
[2018-08-08] MEDS ORDERED: HYPROMELLOSE 0.4% LUB 15ML BTL OU PRN (14:25)
[2018-08-08] MEDS ORDERED: LOPERAMIDE HCL 2 MG CAP PO PRN (14:25)
[2018-08-08] MEDS ORDERED: BISACODYL 10 MG SUPP PR PRN (14:25)
[2018-08-08] MEDS ORDERED: CALCIUM CARBONATE 500 MG CHEW PO PRN (14:25)
[2018-08-08] MEDS: NS(*) 0.9% 1000 ML BAG 1,000 ML IV PRN (14:56)
[2018-08-08 15:38] VITALS: BP 142/70
[2018-08-08] MEDS: ACETAMINOPHEN 325 MG TAB PO PRN ×2 (16:52→23:43)
[2018-08-08] MEDS: oxyCODONE HCL 5 MG CAP PO PRN ×2 (16:52→23:43)
[2018-08-08 20:00] VITALS: BP 110/56
[2018-08-08] MEDS: DOCUSATE SODIUM 100 MG CAP PO SCH (20:23)
[2018-08-08] MEDS: PRAMIPEXOLE DIHYDROCHL 0.25 MG PO SCH (20:23)
[2018-08-08] MEDS: guaiFENesin 600 MG TABCR PO SCH (20:23)
[2018-08-08] MEDS: CARBIDOPA/LEVODOPA 25/100 TAB PO SCH (20:24)
[2018-08-08 23:43] VITALS: BP 129/64
[2018-08-09 03:57] VITALS: BP 131/59
[2018-08-09] MEDS: NS(*) 0.9% 1000 ML BAG 1,000 ML IV PRN (04:03)
[2018-08-09 05:59] LABS: PLATELET COUNT, AUTOMATED 272 K/uL (150-450)
[2018-08-09] MEDS: RIVASTIGMINE 4.6 MG/24 HR TD SCH (09:00)
[2018-08-09 09:24] VITALS: BMI 24.2
[2018-08-09 09:52] VITALS: BP 149/73
[2018-08-09] MEDS: POLYETHYLENE GLYCOL 17 GM PKT PO SCH (09:56)
[2018-08-09] MEDS: CHOLECALCIFEROL 1000 UNIT TAB PO SCH (09:57)
[2018-08-09] MEDS: cefTRIAXone(*) 1 GM VIAL 1 GM in NS(*) 0.9% 100 ML ADDVANT BAG 100 ML IVPB SCH (09:57)
[2018-08-09] MEDS: PRAMIPEXOLE DIHYDROCHL 0.25 MG PO SCH ×3 (09:57→20:41)
[2018-08-09] MEDS: guaiFENesin 600 MG TABCR PO SCH ×2 (09:57→20:41)
[2018-08-09] MEDS: ENOXAPARIN 40 MG/0.4ML SYR SC SCH (09:57)
[2018-08-09] MEDS: DOCUSATE SODIUM 100 MG CAP PO SCH ×2 (09:58→20:41)
[2018-08-09] MEDS: CARBIDOPA/LEVODOPA 25/100 TAB PO SCH ×3 (09:58→20:43)
[2018-08-09] MEDS: amLODIPine BESYL(*) 2.5 MG TAB PO SCH (09:58)
[2018-08-09] MEDS: ACETAMINOPHEN 325 MG TAB PO PRN ×2 (10:31→17:47)
[2018-08-09] MEDS: GUAIFENESIN/DEXTROMETHORPHAN 5 ML PO PRN ×2 (10:31→17:46)
[2018-08-09] MEDS: AZITHROMYCIN(*) 500 MG 500 MG in NS(*) 0.9% 250 ML BAG 250 ML IVPB SCH (10:36)
--- NOTE | 2018-08-09 11:14 | Hospitalist Progress Note ---
Subjective Progress Notes Subjective She was admitted with pneumonia. She has complaints of cough. She has no other complaints. She had no acute events overnight. Patient Complains of: Cardiovascular: No: Chest Pain Respiratory: Cough; No: Shortness of Breath Physical Exam Vital Signs Date Time Temp Pulse Resp B/P (MAP) Pulse Ox O2 Delivery O2 Flow Rate FiO2 08/09/18 09:52 98.4 89 30 149/73 (98) 90 Nasal Cannula 2.0 Intake and Output 08/09/18 07:00 Intake Total 3146 ml Output Total 730 ml Balance 2416 ml Intake Oral 400 ml IV Total 2746 ml Output Urine Total 730 ml General Appearance: Alert, Awake, No Acute Distress, Afebrile Neuro: No Gross deficits Cardiovascular: Regular Rate and Rhythm Respiratory: No Respiratory Distress, Other (expiratory wheezes present) GI: Soft and Non-Tender Extremities: Warm, Perfused; No Edema Psych: Alert & Oriented X3, Appropriate Mood & Affect Result Diagram: 08/09/1851208/09/18512 Assessment and Plan Problems: (1) Pneumonia Status: Acute Assessment & Plan: Left lower lobe infiltrate on CXR. She has been placed on IV Rocephin and Zithromax. Will give supplemental oxygen and respiratory treatments scheeduled and as needed. Cultures pending show no growth currently. (2) Parkinson disease Status: Chronic Assessment & Plan: Will continue her Mirapex and Exelon. (3) HTN (hypertension) Status: Chronic Assessment & Plan: Monitor BPs and resume amlodipine as needed. 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 Didier Eric in the [facility]. She is on Herceptin and Perjeta. Exam Sepsis Risk: No Definite Risk Problem Qualifiers (1) Pneumonia: Pneumonia type: due to unspecified organism Laterality: left Lung location: lower lobe of lung Qualified Codes: J18.1 - Lobar pneumonia, unspecified or ganism (2) HTN (hypertension): Hypertension type: essential hypertension Qualified Codes: I10 - Essential (primary) hypertension COURT WEBB DESKTOP PUBLISHING SPECIALIST Aug 09, 2018 11:14
[2018-08-09] MEDS: ALBUTEROL/IPRATROPIUM 3 ML NEB NEB SCH ×2 (11:16→18:31)
[2018-08-09 14:08] VITALS: BP 116/66
[2018-08-09 14:11] VITALS: Ht 149.9 cm; Wt 54.4 kg
--- NOTE | 2018-08-09 14:36 | Medical Nutrition Therapy ---
Nutrition Anthropometrics Height (Inches): 59.00 Height (Calculated Centimeters: 149.438497 Weight (Pounds): 120 Weight (Calculated Kilograms): 54.431 BMI: 24.2 Frankie Nutrition Score: Adequate Frankie Nutrition Risk Score: 16 Dietary Referral Nutrition Risk Factors: Unplanned Loss >10lbs Nutrition Risk Comment: Physical Findings Physical Appearance: Skin Appearance Skin Appearance: Edema Edema Location Modifier: Edema Location: Type of Edema: Degree of Edema: Gastrointestinal Symptoms GI Symtoms: Tube Present: Bowel Sounds: Recent Bowel Pattern: Stool Characteristics: Nutritional Diagnosis Nutritional Risk Acuity 2: Head/Neck/GI Cancer Nutritional Risk Acuity 3: Fair Appetite, Cancer Past Medical History: Past medical history of parkinsons disease, stage IV carcinoma of breast on palliative chemotherapy. Nutritional Acuity: 2-Moderate Nutrition Diagnosis: Increased Nutrient Needs Nutrition Etiology: Physiological Causes Nutrition Problem/Etiology/Sym: Increased nutrient needs related to physiological causes as evidenced by dx of stage 4 breast carcinoma. Energy Requirement: 1440 (MSJ, 1.1 TEF, 1.4 AF) Protein Requirement: 55 (1 g AA/kg of BW) Fluid Requirement: 1440 (1ml/kcal) Diet Type: Diet as Tolerated LINDSEY/REG Nutrition Intervention: Cont diet as ordered, Encourage intake Nutrition Monitoring & Eval Nutrition Goals: Eat 50-100% Meal Nutrition Follow-Up: Fair Intake RD Patient Assessment Time: [address] Assessment Type: RD Assessment Patient Nutrition Acuity: 2-Moderate Follow Up Date: Aug 12, 2018 Nutritional Comment: 08/09: pt admitted for pneumonia. pt has hx of parkinson's, htn, stage 4 breast carcinoma. Pt is currently on enoxaparin. pt has elevated BUN (19) and RBG (122) levels. Pt has decreased total protein (5.5), sodium (134-136), calcium (7.8-8.2), and albumin (2.8) levels. Pt is on a LINDSEY diet, consuming 50% of regular meals. Monitor and encourage intake. -DEJON MONTEJO Aug 09, 2018 09:36
[2018-08-09 19:15] VITALS: BP 138/65
[2018-08-09] MEDS: oxyCODONE HCL 5 MG CAP PO PRN (20:41)
[2018-08-09 23:20] VITALS: BP 164/79
[2018-08-10 03:38] VITALS: BP 158/76
[2018-08-10] MEDS: GUAIFENESIN/DEXTROMETHORPHAN 5 ML PO PRN (05:22)
[2018-08-10] MEDS: ALBUTEROL/IPRATROPIUM 3 ML NEB NEB SCH ×3 (05:35→17:26)
[2018-08-10 05:53] LABS: PLATELET COUNT, AUTOMATED 289 K/uL (150-450)
[2018-08-10 07:37] VITALS: BP 169/93
[2018-08-10] MEDS: RIVASTIGMINE 4.6 MG/24 HR TD SCH (09:00)
[2018-08-10] MEDS: DOCUSATE SODIUM 100 MG CAP PO SCH ×2 (09:00→20:23)
[2018-08-10] MEDS: cefTRIAXone(*) 1 GM VIAL 1 GM in NS(*) 0.9% 100 ML ADDVANT BAG 100 ML IVPB SCH (09:12)
[2018-08-10] MEDS: ENOXAPARIN 40 MG/0.4ML SYR SC SCH (09:35)
[2018-08-10] MEDS: amLODIPine BESYL(*) 2.5 MG TAB PO SCH (09:35)
[2018-08-10] MEDS: POLYETHYLENE GLYCOL 17 GM PKT PO SCH (09:35)
[2018-08-10] MEDS: guaiFENesin 600 MG TABCR PO SCH ×2 (09:36→20:22)
[2018-08-10] MEDS: CARBIDOPA/LEVODOPA 25/100 TAB PO SCH ×3 (09:36→20:23)
[2018-08-10] MEDS: PRAMIPEXOLE DIHYDROCHL 0.25 MG PO SCH ×3 (09:36→20:22)
[2018-08-10] MEDS: CHOLECALCIFEROL 1000 UNIT TAB PO SCH (09:36)
--- NOTE | 2018-08-10 10:18 | Hospitalist Progress Note ---
Subjective Progress Notes Subjective She was admitted with pneumonia. She reports some improvement in symptoms today. She had no acute events overnight. Patient Complains of: Cardiovascular: No: Chest Pain Respiratory: Cough; No: Shortness of Breath Physical Exam Vital Signs Date Time Temp Pulse Resp B/P (MAP) Pulse Ox O2 Delivery O2 Flow Rate FiO2 08/10/18 07:37 98.0 70 18 169/93 (118) 91 Nasal Cannula 2.5 Intake and Output 08/10/18 07:00 Intake Total 1807 ml Output Total 1100 ml Balance 707 ml Intake Oral 1020 ml IV Total 787 ml Output Urine Total 1100 ml # Voids 5 # Bowel Movements 1 General Appearance: Alert, Awake, No Acute Distress, Afebrile Neuro: No Gross deficits Cardiovascular: Regular Rate and Rhythm Respiratory: No Respiratory Distress, Other (crackles noted to bilateral bases) GI: Soft and Non-Tender Lymph: Other (She has notable left parotid gland enlargement, left supraclavicular node enlarged) Psych: Alert & Oriented X3, Appropriate Mood & Affect Result Diagram: 08/10/1851408/10/18514 Assessment and Plan Problems: (1) Pneumonia Status: Acute Assessment & Plan: Left lower lobe infiltrate on CXR. She has been placed on IV Rocephin and Zithromax. Will give supplemental oxygen and respiratory treatments scheduled and as needed. Cultures pending show no growth currently. (2) Parkinson disease Status: Chronic Assessment & Plan: Will continue her Mirapex and Exelon. (3) HTN (hypertension) Status: Chronic Assessment & Plan: Monitor BPs and resume amlodipine as needed. 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 Didier Eric in the [facility]. She is on Herceptin and Perjeta. She does have swelling of left parotid gland and recent biopsy, she should follow up with cancer center upon discharge. Exam Sepsis Risk: No Definite Risk Problem Qualifiers (1) Pneumonia: Pneumonia type: due to unspecified organism Laterality: left Lung location: lower lobe of lung Qualified Codes: J18.1 - Lobar pneumonia, unspecified organism (2) HTN (hypertension): Hypertension type: essential hypertension Qualified Codes: I10 - Essential (primary) hypertension COURT WEBBP Aug 10, 2018 10:18
[2018-08-10] MEDS: AZITHROMYCIN(*) 500 MG 500 MG in NS(*) 0.9% 250 ML BAG 250 ML IVPB SCH (10:51)
[2018-08-10 11:26] VITALS: BP 135/67
--- NOTE | 2018-08-10 14:16 | NUR ---
Physical Therapy Impression PT/OT co eval complete. Pt requests and requires maxA x2 for supine to sit bed mobility. Pt initially very retropulsive with stand pivot transfer from bed to BSC with RW, requiring min-modAx2. Pt able to ambulate forward 3 feet towards chair and complete pivot transfer to chair with assistance of 1. Pt was incontinent of urine prior to PT session. Rec LT sub acute rehab. Physical Therapy Goals 1: Pt to complete bed mobility with modA x1 2: Pt to complete transfers with Gilberto x1 Patient's Goals
--- NOTE | 2018-08-10 14:51 | NUR ---
Occupational Therapy Impression OT evaluation completed. Pt. would benefit from OT services 5x/ week to increase independence in ADL's. OT recommends pt. d/c to rn long term care subacute rehab due to pt. requiring the assistance of 2 people to transfer OOB as well as Max A to perform toileting activities (following being incontinent in depends). Occupational Therapy Goals 1. Pt. to perform toileting activities with Mod A. 2. Pt. to perform showering activities with Mod A. 3. Pt. to perform dressing activities with Mod A. 4. Pt. to perform grooming activities with Min A. Patient's Goal
[2018-08-10 16:25] VITALS: BP 173/79
[2018-08-10 19:18] VITALS: BP 171/87
[2018-08-10] MEDS: ACETAMINOPHEN 325 MG TAB PO PRN (20:22)
--- NOTE | 2018-08-10 20:28 | Antimicrobial Stewardship ---
Antimicrobial Stewardship Empiricly appropriate: Yes (On Azithromycin 500 mg IV daily and Ceftriaxone 1 gm IV daily for pneumonia) Approriate Cultures done: Yes (no growth to date) Renal/Hepatic dosing: Yes Reviewed for Drug Interaction: Yes Monitored for Toxicities: Yes Clinically stable/improving: Yes IV to PO Opportunity: Yes Determine cumulative duration: 5-10 days CLARICE VIVAR Aug 10, 2018 20:28
[2018-08-10 23:52] VITALS: BP 151/73
[2018-08-11 02:40] VITALS: BP 175/88
[2018-08-11] MEDS: ALBUTEROL/IPRATROPIUM 3 ML NEB NEB SCH ×3 (05:17→17:05)
[2018-08-11 08:06] VITALS: BP 184/93
[2018-08-11] MEDS: PRAMIPEXOLE DIHYDROCHL 0.25 MG PO SCH ×3 (08:16→20:53)
[2018-08-11] MEDS: amLODIPine BESYL(*) 2.5 MG TAB PO SCH (08:17)
[2018-08-11] MEDS: POLYETHYLENE GLYCOL 17 GM PKT PO SCH (08:17)
[2018-08-11] MEDS: ENOXAPARIN 40 MG/0.4ML SYR SC SCH (08:17)
[2018-08-11] MEDS: DOCUSATE SODIUM 100 MG CAP PO SCH ×2 (08:17→20:53)
[2018-08-11] MEDS: CHOLECALCIFEROL 1000 UNIT TAB PO SCH (08:17)
[2018-08-11] MEDS: guaiFENesin 600 MG TABCR PO SCH ×2 (08:17→20:53)
[2018-08-11] MEDS: cefTRIAXone(*) 1 GM VIAL 1 GM in NS(*) 0.9% 100 ML ADDVANT BAG 100 ML IVPB SCH (08:17)
[2018-08-11] MEDS: CARBIDOPA/LEVODOPA 25/100 TAB PO SCH ×3 (08:17→20:53)
[2018-08-11] MEDS: RIVASTIGMINE 4.6 MG/24 HR TD SCH (08:18)
[2018-08-11] MEDS: AZITHROMYCIN 250 MG TAB PO SCH (10:21)
--- NOTE | 2018-08-11 11:34 | NUR ---
Occupational Therapy Impression Mod Ax1 supine to sit with HOB raised. Min Ax1 stand step pivot bed<>chair. CGA standing [id number] for brief change. Max Ax1 brief change and vlad-care. Pt unaware of incontinence, declined to sit on toilet. Pt seated up in chair as discharge planning and Dr. Calix arriving for consults. VSS throughout. Rec long-term rehab. Occupational Therapy Goals 1. Pt. to perform toileting activities with Mod A. 2. Pt. to perform showering activities with Mod A. 3. Pt. to perform dressing activities with Mod A. 4. Pt. to perform grooming activities with Min A. Patient's Goal
--- NOTE | 2018-08-11 11:50 | ENT Progress Note ---
Subjective Progress Notes Subjective Patient scheduled to see me in office this week but hospitalized for pneumonia. Repeat FNA of left parotid mass c/w carcinoma but again insufficient material for special stains. Plan core needle biopsy at bedside today. PROCEDURE: Core needle biopsy left parotid mass. Patient consents to the procedure. Area prepped and draped in usual sterile fashion. 2 ml 1% lidocaine with epi infiltrated. stab incision made with 11 blade. core needle biopsy performed. EBL negligible. Physical Exam Vital Signs Date Time Temp Pulse Resp B/P (MAP) Pulse Ox O2 Delivery O2 Flow Rate FiO2 08/11/18 11:08 73 18 08/11/18 11:03 93 Nasal Cannula 2.0 08/11/18 08:06 98.0 184/93 (123) Intake and Output 08/11/18 06:59 Intake Total 1650 ml Balance 1650 ml Intake Oral 1300 ml IV Total 350 ml # Voids 7 # Bowel Movements 5 General Appearance: Alert, No Acute Distress ENT: Other (stable left parotid mass) Result Diagram: 08/10/18 0515 08/10/18 0515 Assessment and Plan Problems: (1) Parotid neoplasm Status: Chronic Assessment & Plan: Core needle biopsy performed at bedside today. Will call patient with results and follow up plan. Copies to: MACKENZIE CHAPPELL MD ; Exam Sepsis Risk: No Definite Risk RAOUL GIMENEZ JR, MD Aug 11, 2018 11:50
--- NOTE | 2018-08-11 15:48 | Hospitalist Progress Note ---
Subjective Progress Notes Subjective 77F admitted for pneumonia. SUNG overnight, having significant troubles with ADL, working on placement. Patient Complains of: Respiratory: No: Cough, Congestion Physical Exam Vital Signs Date Time Temp Pulse Resp B/P (MAP) Pulse Ox O2 Delivery O2 Flow Rate FiO2 08/11/18 11:08 73 18 08/11/18 11:03 93 Nasal Cannula 2.0 08/11/18 08:06 98.0 184/93 (123) Intake and Output 08/11/18 07:00 Intake Total 1650 ml Balance 1650 ml Intake Oral 1300 ml IV Total 350 ml # Voids 7 # Bowel Movements 5 General Appearance: Alert, Awake, No Acute Distress, Afebrile Neuro: No Gross deficits Cardiovascular: Normal Rhythm & Peripheral Pulses Respiratory: No Respiratory Distress Extremities: Soft and Non Tender, Warm, Pulses, Perfused Integumentary: Skin Intact without Lesion / Mass Result Diagram: 08/10/1851408/10/18514 Assessment and Plan Problems: (1) Pneumonia Status: Acute Assessment & Plan: Left lower lobe infiltrate on CXR. She was placed on IV Rocephin and Zithromax. Will give supplemental oxygen and respiratory treatments scheduled and as needed. Cultures NGTD, transition to PO cefdinir and azithromycin in anticipation of discharge.. (2) Parkinson disease Status: Chronic Assessment & Plan: Will continue her Mirapex and Exelon. 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 (3) HTN (hypertension) Status: Chronic Assessment & Plan: Monitor BPs increased amlodipine to 5mg daily. 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 Didier Eric in the [facility]. She is on Herceptin and Perjeta. She does have swelling of left parotid gland and recent biopsy, she should follow up with cancer center upon discharge. L parotid biopsy insufficient for definitive diagnosis, appears to be malignant cells on pathology. New biopsy by ENT obtained. Exam Sepsis Risk: No Definite Risk Problem Qualifiers (1) Pneumonia: Pneumonia type: due to unspecified organism Laterality: left Lung location: lower lobe of lung Qualified Codes: J18.1 - Lobar pneumonia, unspecified organism (2) HTN (hypertension): Hypertension type: essential hypertension Qualified Codes: I10 - Essential (primary) hypertension ANDRADE CARRILLO DO Aug 11, 2018 15:48
[2018-08-11 16:28] VITALS: BP 152/84
--- NOTE | 2018-08-11 16:42 | NUR ---
Physical Therapy Impression Pt with improved tolerance to activity today with ambulation x 150' with RW and CGA. Physical Therapy Goals 1: Pt to complete bed mobility with modA x1 2: Pt to complete transfers with Gilberto x1 Patient's Goals
--- NOTE | 2018-08-11 16:43 | NUR ---
PHYSICAL THERAPY INFORMATION TRANSFER SHEET BED MOBILITY: Minimum Assistance TRANSFERS: CGA GAIT: 150 ' with O2 RW and CGA Weightbearing Status: STAIRS: with . EXERCISES: Verbalizes Needs: Yes Understands Directions Yes Cooperative: Yes Family Teaching: No Physical Therapy Comment:
[2018-08-11 20:36] VITALS: BP 169/87
[2018-08-12 04:11] VITALS: BP 170/87
[2018-08-12] MEDS: oxyCODONE HCL 5 MG CAP PO PRN (04:24)
[2018-08-12] MEDS: ALBUTEROL/IPRATROPIUM 3 ML NEB NEB SCH ×3 (05:30→16:46)
[2018-08-12 08:53] VITALS: BP 161/76
[2018-08-12] MEDS: POLYETHYLENE GLYCOL 17 GM PKT PO SCH (09:00)
[2018-08-12] MEDS ORDERED: amLODIPine BESYL(*) 2.5 MG TAB PO SCH (09:00)
[2018-08-12] MEDS: RIVASTIGMINE 4.6 MG/24 HR TD SCH (09:00)
[2018-08-12] MEDS: DOCUSATE SODIUM 100 MG CAP PO SCH ×2 (09:00→21:00)
--- NOTE | 2018-08-12 09:02 | NUR ---
OCCUPATIONAL THERAPY Dressing Assistance: Max A LB dressing. Min A UB dressing. Dressing Aid Required: None addressed at this time. Bathing Assistance: N/T with OT Home Assessment: Not Completed Feeding Assistance: Set-up Feeding Specialized Equipment: None Toilet Use: Maximum Assistance 1 person assist Verbalizes Needs: Yes Understands Precautions: Yes Cooperative: Yes Family Teaching: No Occupational Therapy Comment:
[2018-08-12] MEDS: PRAMIPEXOLE DIHYDROCHL 0.25 MG PO SCH ×3 (09:03→21:37)
[2018-08-12] MEDS: CHOLECALCIFEROL 1000 UNIT TAB PO SCH (09:04)
[2018-08-12] MEDS: AZITHROMYCIN 250 MG TAB PO SCH (09:04)
[2018-08-12] MEDS: CARBIDOPA/LEVODOPA 25/100 TAB PO SCH ×3 (09:04→21:36)
[2018-08-12] MEDS: guaiFENesin 600 MG TABCR PO SCH ×2 (09:04→21:37)
[2018-08-12] MEDS: CEFDINIR 300 MG CAP PO SCH ×2 (09:05→21:37)
[2018-08-12] MEDS: ENOXAPARIN 40 MG/0.4ML SYR SC SCH (09:09)
--- NOTE | 2018-08-12 11:11 | Hospitalist Progress Note ---
Subjective Progress Notes Subjective She denies any new problems. She is eating/drinking well. Physical Exam Vital Signs Date Time Temp Pulse Resp B/P (MAP) Pulse Ox O2 Delivery O2 Flow Rate FiO2 08/12/18 08:53 98.3 88 14 161/76 (104) 92 Nasal Cannula 2.0 Intake and Output 08/12/18 07:00 Intake Total 320 ml Balance 320 ml Intake Oral 320 ml # Voids 5 # Bowel Movements 3 General Appearance: Alert, Awake Neuro: Other (resting tremor) Cardiovascular: Regular Rate and Rhythm Respiratory: Other (Fairly clear) Extremities: Warm, Perfused Result Diagram: 08/10/1851408/10/18514 Assessment and Plan Problems: (1) Pneumonia Status: Acute Assessment & Plan: Left lower lobe infiltrate on CXR. She was initially placed on IV Rocephin and Zithromax. She was given supplemental oxygen and respiratory treatments as needed. Cultures showed no growth. She was transitioned to PO cefdinir and azithromycin in anticipation of discharge. (2) Parkinson disease Status: Chronic Assessment & Plan: Will continue her Mirapex and Exelon. PT/OT recommend termite exterminator helper rehab, working on placement. (3) HTN (hypertension) Status: Chronic Assessment & Plan: Monitor BPs. We increased amlodipine to 5mg daily. 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 Didier Eric in the [facility]. She is on Herceptin and Perjeta. She does have swelling of left parotid gland and recent biopsy She will follow up with cancer center upon discharge. Left parotid biopsy insufficient for definitive diagnosis, but appears to be malignant cells on pathology. New biopsy by Dr. Calix (ENT) was obtained yesterday. Exam Sepsis Risk: No Definite Risk Problem Qualifiers (1) Pneumonia: Pneumonia type: due to unspecified organism Laterality: left Lung location: lower lobe of lung Qualified Codes: J18.1 - Lobar pneumonia, unspecified organism (2) HTN (hypertension): Hypertension type: essential hypertension Qualified Codes: I10 - Essential (primary) hypertension BEN PHILLIPS MD Aug 12, 2018 11:11
--- NOTE | 2018-08-12 11:36 | Medical Nutrition Therapy ---
Nutrition Anthropometrics Height (Inches): 59.00 Height (Calculated Centimeters: 149.398900 Weight (Pounds): 120 Weight (Calculated Kilograms): 54.431 BMI: 24.2 Frankie Nutrition Score: Probably Inadequate Frankie Nutrition Risk Score: 11 Dietary Referral Nutrition Risk Factors: Unplanned Loss >10lbs Nutrition Risk Comment: Physical Findings Physical Appearance: Skin Appearance Skin Appearance: Edema Edema Location Modifier: Edema Location: Type of Edema: Degree of Edema: Gastrointestinal Symptoms GI Symtoms: Diarrhea, Change in Bowel Pattern Tube Present: Bowel Sounds: Recent Bowel Pattern: Stool Characteristics: Nutritional Diagnosis Nutritional Risk Acuity 2: Head/Neck/GI Cancer Nutritional Risk Acuity 3: Fair Appetite, Cancer Past Medical History: Past medical history of parkinsons disease, stage IV carcinoma of breast on palliative chemotherapy. Nutritional Acuity: 2-Moderate Nutrition Diagnosis: Increased Nutrient Needs Nutrition Etiology: Physiological Causes Nutrition Problem/Etiology/Sym: Increased nutrient needs related to physiological causes as evidenced by dx of stage 4 breast carcinoma. Energy Requirement: 1440 (MSJ, 1.1 TEF, 1.4 AF) Protein Requirement: 55 (1 g AA/kg of BW) Fluid Requirement: 1440 (1ml/kcal) Diet Type: Diet as Tolerated LINDSEY/REG Nutrition Intervention: Cont diet as ordered, Encourage intake Nutrition Monitoring & Eval Nutrition Goals: Eat 50-100% Meal Nutrition Follow-Up: Good Intake RD Patient Assessment Time: [address] Assessment Type: RD Re-Assessment Patient Nutrition Acuity: 2-Moderate Follow Up Date: Aug 15, 2018 Nutritional Comment: 08/09: pt admitted for pneumonia. pt has hx of parkinson's, htn, stage 4 breast carcinoma. Pt is currently on enoxaparin. pt has elevated BUN (19) and RBG (122) levels. Pt has decreased total protein (5.5), sodium (134-136), calcium (7.8-8.2), and albumin (2.8) levels. Pt is on a LINDSEY diet, consuming 50% of regular meals. Monitor and encourage intake. -SHAUN 08/12: Pt dx pneumonia. Pt labs on 07/13 were: decreased sodium (135), creatinine (0.50), total protein (5.9), and albumin (3.1). No current labs available. Pt is on LINDSEY diet consuming 75-100% of meals. Monitor and encourage intake. -DEJON MONTEJO Aug 12, 2018 08:25
--- NOTE | 2018-08-12 12:51 | NUR ---
Occupational Therapy Impression Mod A supine to sit. CGA ambulation x15ft, x20ft with RW and chair follow. Total A for managing O2 tubing. Max A toileting, incontinent. Mod A grooming seated up in chair. Pt demonstrating improved tolerance for functional mobility this date. Rec rehab prior to return to [facility]. Occupational Therapy Goals 1. Pt. to perform toileting activities with Mod A. 2. Pt. to perform showering activities with Mod A. 3. Pt. to perform dressing activities with Mod A. 4. Pt. to perform grooming activities with Min A. Patient's Goal
[2018-08-12 15:17] VITALS: BP 150/89
--- NOTE | 2018-08-12 16:07 | NUR ---
Physical Therapy Impression Pt with good tolerance to therapy today. CGA for STS transfers with RW. Ambulation x125' with RW with CGA, PT provided cues for increased step length with ambulation. Physical Therapy Goals 1: Pt to complete bed mobility with modA x1 2: Pt to complete transfers with Gilberto x1 Patient's Goals
[2018-08-12 19:34] VITALS: BP 145/92
[2018-08-13 04:04] VITALS: BP 155/76
[2018-08-13] MEDS: ALBUTEROL/IPRATROPIUM 3 ML NEB NEB SCH ×3 (05:18→18:00)
[2018-08-13 07:44] VITALS: BP 165/82
[2018-08-13] MEDS: ACETAMINOPHEN 325 MG TAB PO PRN (07:59)
[2018-08-13] MEDS: RIVASTIGMINE 4.6 MG/24 HR TD SCH (09:00)
[2018-08-13] MEDS: POLYETHYLENE GLYCOL 17 GM PKT PO SCH (09:00)
[2018-08-13] MEDS: DOCUSATE SODIUM 100 MG CAP PO SCH ×2 (09:00→20:29)
[2018-08-13] MEDS: CHOLECALCIFEROL 1000 UNIT TAB PO SCH (09:09)
[2018-08-13] MEDS: PRAMIPEXOLE DIHYDROCHL 0.25 MG PO SCH ×3 (09:09→20:28)
[2018-08-13] MEDS: guaiFENesin 600 MG TABCR PO SCH ×2 (09:09→20:29)
[2018-08-13] MEDS: CARBIDOPA/LEVODOPA 25/100 TAB PO SCH ×3 (09:09→20:29)
[2018-08-13] MEDS: CEFDINIR 300 MG CAP PO SCH ×2 (09:09→20:28)
[2018-08-13] MEDS: amLODIPine BESYL(*) 5 MG TAB PO SCH (09:09)
[2018-08-13] MEDS: oxyCODONE HCL 5 MG CAP PO PRN (09:09)
[2018-08-13] MEDS: AZITHROMYCIN 250 MG TAB PO SCH (09:10)
[2018-08-13] MEDS: ENOXAPARIN 40 MG/0.4ML SYR SC SCH (09:10)
--- NOTE | 2018-08-13 10:12 | Hospitalist Progress Note ---
Subjective Progress Notes Subjective She was admitted with pneumonia. She has no complaints this morning. She is feeling well. Patient Complains of: Cardiovascular: No: Chest Pain Respiratory: No: Shortness of Breath Physical Exam Vital Signs Date Time Temp Pulse Resp B/P (MAP) Pulse Ox O2 Delivery O2 Flow Rate FiO2 08/13/18 07:44 97.6 80 22 165/82 (109) 86 Nasal Cannula 1.0 Intake and Output 08/13/18 07:00 Intake Total 670 ml Balance 670 ml Intake Oral 670 ml # Voids 1 General Appearance: Alert, Awake, No Acute Distress, Afebrile Neuro: No Gross deficits Cardiovascular: Regular Rate and Rhythm Respiratory: No Respiratory Distress, Clear to Auscultation GI: Soft and Non-Tender Psych: Alert & Oriented X3, Appropriate Mood & Affect Result Diagram: 08/10/1851408/10/18514 Assessment and Plan Problems: (1) Pneumonia Status: Acute Assessment & Plan: Left lower lobe infiltrate on CXR. She was initially placed on IV Rocephin and Zithromax. She was given supplemental oxygen and respiratory treatments as needed. Cultures showed no growth. She was transitioned to PO cefdinir and azithromycin in anticipation of discharge. (2) Parkinson disease Status: Chronic Assessment & Plan: Will continue her Mirapex and Exelon. PT/OT recommend skilled nursing rehab, working on placement. (3) HTN (hypertension) Status: Chronic Assessment & Plan: Monitor BPs. We increased amlodipine to 10mg daily. 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 Didier Eric in the [facility]. She is on Herceptin and Perjeta. She does have swelling of left parotid gland and recent biopsy. She will follow up with cancer center upon discharge. Left parotid biopsy insufficient for definitive diagnosis, but appears to be malignant cells on pathology. New biopsy by Dr. Calix (ENT) was obtained 08/11. Exam Sepsis Risk: No Definite Risk Problem Qualifiers (1) Pneumonia: Pneumonia type: due to unspecified organism Laterality: left Lung location: lower lobe of lung Qualified Codes: J18.1 - Lobar pneumonia, unspecified organism (2) HTN (hypertension): Hypertension type: essential hypertension Qualified Codes: I10 - Essential (primary) hypertension COURT WEBB PRODUCT INTRODUCTION MANAGER Aug 13, 2018 10:12
--- NOTE | 2018-08-13 13:54 | NUR ---
OCCUPATIONAL THERAPY Dressing Assistance: Min A LB dressing Dressing Aid Required: May benefit from LB AE education Bathing Assistance: N/T with OT Home Assessment: Not Completed Feeding Assistance: Independent Feeding Specialized Equipment: None Toilet Use: CGA Verbalizes Needs: Yes Understands Precautions: Yes Cooperative: Yes Family Teaching: No Occupational Therapy Comment:
--- NOTE | 2018-08-13 13:54 | NUR ---
Occupational Therapy Impression Min A supine to sit with HOB raised. CGA ambulation x15ft, x45ft with RW and chair follow. CGA toileting with increased assist for management of donning dry brief. Pt reports assist with bed mobility and LB dressing at [facility]. [facility], recommend [facility] services and increased assist for ADLs. Occupational Therapy Goals 1. Pt. to perform toileting activities with Mod A. 2. Pt. to perform showering activities with Mod A. 3. Pt. to perform dressing activities with Mod A. 4. Pt. to perform grooming activities with Min A. Patient's Goal
--- NOTE | 2018-08-13 14:16 | NUR ---
Physical Therapy Impression Pt currently requires CGA/Min A to stand and CGA to ambulate 150' with RW. Physical Therapy Goals 1: Pt to complete bed mobility with modA x1 2: Pt to complete transfers with Gilberto x1 Patient's Goals
--- NOTE | 2018-08-13 14:16 | NUR ---
PHYSICAL THERAPY INFORMATION TRANSFER SHEET BED MOBILITY: Minimum Assistance TRANSFERS: Minimum Assistance CGA GAIT: 150 ' with O2 RW and CGA Weightbearing Status: STAIRS: with . EXERCISES: Verbalizes Needs: Yes Understands Directions Yes Cooperative: Yes Family Teaching: No Physical Therapy Comment:
[2018-08-13 14:55] VITALS: BP 109/64
[2018-08-13 19:40] VITALS: BP 133/88
[2018-08-13] MEDS: GUAIFENESIN/DEXTROMETHORPHAN 5 ML PO PRN (21:29)
[2018-08-14 00:51] VITALS: BP 174/88
[2018-08-14] MEDS: oxyCODONE HCL 5 MG CAP PO PRN (01:00)
[2018-08-14] MEDS: ALBUTEROL/IPRATROPIUM 3 ML NEB NEB SCH (05:08)
[2018-08-14 06:42] VITALS: BP 163/78
[2018-08-14] MEDS: RIVASTIGMINE 4.6 MG/24 HR TD SCH (09:00)
[2018-08-14] MEDS: ENOXAPARIN 40 MG/0.4ML SYR SC SCH (09:13)
[2018-08-14] MEDS: AZITHROMYCIN 250 MG TAB PO SCH (09:13)
[2018-08-14] MEDS: CARBIDOPA/LEVODOPA 25/100 TAB PO SCH (09:14)
[2018-08-14] MEDS: DOCUSATE SODIUM 100 MG CAP PO SCH (09:14)
[2018-08-14] MEDS: POLYETHYLENE GLYCOL 17 GM PKT PO SCH (09:14)
[2018-08-14] MEDS: guaiFENesin 600 MG TABCR PO SCH (09:14)
[2018-08-14] MEDS: CEFDINIR 300 MG CAP PO SCH (09:14)
[2018-08-14] MEDS: CHOLECALCIFEROL 1000 UNIT TAB PO SCH (09:14)
[2018-08-14] MEDS: PRAMIPEXOLE DIHYDROCHL 0.25 MG PO SCH (09:15)
[2018-08-14] MEDS: amLODIPine BESYL(*) 5 MG TAB PO SCH (09:15)
[2018-08-14] MEDS ORDERED: AMLO-125 PO (11:03)
[2018-08-14] MEDS ORDERED: AZIT-18 PO (11:03)
[2018-08-14] MEDS ORDERED: CEF300 PO (11:03)
--- NOTE | 2018-08-14 11:08 | Hospitalist Depart ---
Discharge Summary Reason for Hosp/Final Diag: (1) Pneumonia Status: Acute Hospital Course & Plan: Left lower lobe infiltrate on CXR. She was initially placed on IV Rocephin and Zithromax. She was given supplemental oxygen and respiratory treatments as needed. Cultures showed no growth. She was transitioned to PO cefdinir and azithromycin in anticipation of discharge. (2) Parkinson disease Status: Chronic Hospital Course & Plan: Will continue her Mirapex and Exelon. (3) HTN (hypertension) Status: Chronic Hospital Course & Plan: We increased amlodipine to 10mg daily as she was consis tently hypertensive throughout stay.. 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 Didier Eric in the [facility]. She is on Herceptin and Perjeta. She does have swelling of left parotid gland and recent biopsy. She will follow up with cancer center upon discharge. Left parotid biopsy insufficient for definitive diagnosis, but appears to be malignant cells on pathology. New biopsy by Dr. Calix (ENT) was obtained 08/11. Departure Weight (Pounds): 120 Result Diagram: 08/10/1851408/10/18514 Condition: Improved PT/OT Follow Up For: PT For Strengthening, OT For ADL's, PT Evaluation and Treat, OT Evaluation and Treat Home Health RN Follow Up For: Other Discharge Instructions Home Meds Active Scripts Cefdinir 300 Mg Cap (OMNICEF 300 MG CAP (OR EQUIV)) 300 Mg Cap, 300 MG PO BID for 5 Days, #10 CAP Prov:ANDRADE CARRILLO DO 08/14/18 Azithromycin 250 Mg Tab (AZITHROMYCIN 250 MG TAB) 250 Mg Tablet, 500 MG PO QDAY for 5 Days, #10 TAB Prov:ANDRADE CARRILLO DO 08/14/18 Amlodipine Besylate (AMLODIPINE BESYLATE) 5 Mg Tablet, 10 MG PO QDAY for 30 Days, #60 TAB Prov:ANDRADE CARRILLO DO 08/14/18 Docusate Sodium (DOCUSATE SODIUM) 100 Mg Capsule, 100 MG PO BID for 90 Days, #180 CAPSULE 4 Refills Prov:ALICE ZAMORANO MD 02/10/18 Bisacodyl (BISAC-EVAC) 10 Mg Supp.rect, 10 MG AK QDAY PRN for CONSTIPATION for 30 Days, #30 SUPP.RECT Prov:ALICE ZAMORANO MD 02/10/18 Acetaminophen 500 Mg Tab (ACETAMINOPHEN EXTRA STRENGTH) 500 Mg Tablet, 1000 MG PO TID for 90 Days, #270 TAB 4 Refills Prov:ALICE ZAMORANO MD 02/10/18 Cholecalciferol (Vitamin D3) (VITAMIN D3) 1,000 Unit Tablet, 1 TAB PO DAILY for 90 Days, #90 TAB 4 Refills Prov:ALICE ZAMORANO MD 01/27/18 Reported Medications Oxygen (OXYGEN) Inha, 1.5 L INH DAILY, L 08/08/18 Albuterol Sulfate (VENTOLIN HFA) 18 Gm Inh, 2 PUFF INH QID PRN for DYSPNEA, INH 08/08/18 Pramipexole Di-HCl (Pramipexole ER) 1.5 Mg Tab.er.24h, 2 TAB 08/08/18 Polyethylene Glycol 3350 (MIRALAX) 17 Gm Powd.pack, 17 GM PO DAILY PRN for CONSTIPATION, PKT 08/08/18 Rivastigmine Tartrate (EXELON) 4.6 Mg/24 Hr Tdsy, 4.6 MG TD DAILY 08/08/18 Diclofenac Sodium (Diclofenac Sodium) 1 % Gel..gram., 2 GM TP Q12H PRN for PAIN 08/08/18 Carbidopa/Levodopa (CARBIDOPA-LEVO 25-100 MG ODT) 1 Each Tab.rapdis, 1.5 TAB PO TIDAC 08/08/18 Oxycodone Hcl (OXYCODONE HCL) 5 Mg Tablet, 1-2 TAB PO Q6H PRN for PAIN 1 tab q6prn for pain rated 1-5 May have 2 tab q6prn for pain rated 6-10 07/15/18 Carboxymethylcellulose Sodium (THERA TEARS) 1 Each Droper.gel, 1 EACH OP PRN 04/13/18 Loperamide HCl (Imodium A-D) 2 Mg Capsule, 2 CAP PO DIRECTED PRN for DIARRHEA 04/13/18 Calcium Carbonate/Mag Hydrox (ANTACID CHEWABLE TABLET) 1 Each Tab.chew, 2 TAB .CHEW PO Q2H PRN for HEARTBURN, TAB.CHEW 04/13/18 Mag Hydrox/Aluminum Hyd/Simeth (Maalox Advanced Suspension) 200 Mg-200 Mg-20 Mg/5 Ml Oral.susp, 15 ML PO Q4H PRN for PRN 04/13/18 Aspirin (ASPIRIN) 325 Mg Tablet, 1 TAB PO ONCE PRN for chest pain, TAB 04/13/18 Guaifenesin/Dextromethorphan (Robitussin Cough-Chest Dm Liq) 100 Mg-5 Mg/5 Ml Liquid, 5 ML PO Q4-6H PRN for COUGH 04/13/18 Discontinued Reported Medications Acetaminophen (TYLENOL) 325 Mg Tablet, 1-2 TAB PO Q4H PRN for PAIN/TEMP OVER 100.4, TAB 04/13/18 Oxygen (OXYGEN) Inha, 2 L INH, L 12/31/17 Discontinued Scripts Amlodipine Besylate (AMLODIPINE BESYLATE) 2.5 Mg Tablet, 1 TAB PO QDAY for 90 Days, #90 TAB Prov:ALICE ZAMORANO MD 07/01/18 Carbidopa/Levodopa (SINEMET 25-100 MG TABLET) 1 Each Tablet, 1 EACH PO TID for 90 Days, #360 TAB 4 Refills Prov:ALICE ZAMORANO MD 07/15/18 Pramipexole Di-Hcl (MIRAPEX ER) 1.5 Mg Tab.er.24h, 1.5 MG PO QDAY for 90 Days, #90 TAB Prov:ALICE ZAMORANO MD 07/05/18 Polyethylene Glycol 3350 (POLYETHYLENE GLYCOL 3350) 17 Gm Powd.pack, 8 GM PO QDAY for 90 Days, #45 PACKET 4 Refills Prov:ALICE ZAMORANO MD 04/12/18 Diclofenac Sodium 1% Gel (VOLTAREN 1% GEL) 100 Gm Gel..gram., 2 GM TOP BID for 30 Days, #1 TUBE Prov:ALICE ZAMORANO MD 02/09/18 Diet: Regular Activity: With Walker Special Instructions: You were started on antibiotics for pneumonia, complete the course even if you are feeling better. Your amlodipine was increased to better control your blood pressure. Copies to: ALICE ZAMORANO MD ; Venous Thromboembolism Antithrombotics Is Pt On Any Antithrombotics?: Yes Bjvw-zn-Wkur Certification Face to Face Home Health Certification Patient's Primary Care Provider: Alice Zamorano MD Institutional Provider conducted the gaju-gi-sgur encounter. Electronic Undersigning Physician Certifies Home Health. I certify that the patient has been under my care and that I had a tgbj-uq-wfti encounter that meets the physician lfxn-hk-hmwg encounter requirements with this patient. This patient is home-bound due to safety issues and continues to require assistance with ADL's. I certify that based on my findings, that Nursing, Aides and the following Home Health services are medically necessary: Medical Necessity: Rehab Date Face to Face Conducted: Aug 14, 2018 Problem Qualifiers (1) Pneumonia: Pneumonia type: due to unspecified organism Laterality: left Lung location: lower lobe of lung Qualified Codes: J18.1 - Lobar pneumonia, unspecified o rganism (2) HTN (hypertension): Hypertension type: essential hypertension Qualified Codes: I10 - Essential (primary) hypertension ANDRADE CARRILLO DO Aug 14, 2018 11:08
[2018-08-17] MEDS ORDERED: CYA1000 PO (11:33)
[2018-08-17] MEDS ORDERED: FOLI-68 PO (11:33)
== END 2018-08-14 11:30 | disposition home health service (06) | DRG 194 ==
LOC: ER 09:58 → MED 12:19
PROVIDERS: ADMIT Internal Medicine; ATTEND Internal Medicine
DX: J18.1 Lobar pneumonia, unspecified organism (principal); C79.89 Secondary malignant neoplasm of other specified sites; G20 Parkinson's disease; I10 Essential (primary) hypertension; Z92.21 Personal history of antineoplastic chemotherapy; C50.919 Malignant neoplasm of unspecified site of unspecified female breast; Z88.2 Allergy status to sulfonamides; Z88.8 Allergy status to other drugs, medicaments and biological substances; Z96.641 Presence of right artificial hip joint
CPT/HCPCS: 36415; 71045; 71046; 81001; 82040; 82247; 82310; 82374; 82435; 82565; 82947; 83605; 84075; 84132; 84155; 84295; 84450; 84460; 84520; 85025; 85610; 85730; 87040; 87088; 87502; 93005; 94640; 96365; 96375; 97161; 97165; 99285; A4353; C1758; J0456; J0696; J1650; J7030; J7050

== ENCOUNTER 2018-09-30 09:00 | Outpatient (RCR) | payer MEDICARE, BC ==
[2018-07-22 10:59] VITALS: BP 108/54
[2018-07-22] MEDS: LIDOCAINE/SOD BICARB 8.4% SYR ID PRN (11:11)
[2018-07-22 11:12] LABS: PLATELET COUNT, AUTOMATED 380 K/uL (150-450)
[2018-07-22] MEDS: NS(*) 0.9% 100 ML BAG 100 ML IVPB PRN (11:12)
[2018-07-22] MEDS: ACETAMINOPHEN 325 MG TAB PO PRN (11:47)
[2018-07-22] MEDS: diphenhydrAMINE 25 MG CAP PO PRN (11:47)
[2018-07-22 15:28] VITALS: BP 160/85
--- NOTE | 2018-07-22 17:46 | EL-TARABILY ONCOLOGY NOTE ---
EVENT DATE: July 22, 2018 DIAGNOSIS Metastatic breast cancer. CHIEF COMPLAINT Patient is here today for followup of her metastatic breast cancer, on treatment with Herceptin and Perjeta. ONCOLOGY HISTORY Patient is a 77-year-old female who was diagnosed with metastatic breast cancer in October 2016, and her tumor was poorly differentiated invasive ductal carcinoma with diffuse bony metastasis, ER/DC negative, and HER2/maricarmen positive. Patient started treatment with Herceptin and Perjeta in December 2016 after recommendation by [facility]. She achieved a very good response with her treatment with normalization of her tumor markers. She developed a fracture, and the patient had right hip replacement on November 12, 2017, and was admitted in a rehab center in [place]. So, the patient resumed her treatment there with Herceptin and Perjeta on December 09, 2017. Patient returned back to [place], and she is currently admitted to a [facility]. HISTORY OF PRESENT ILLNESS Patient is here today for followup of her metastatic breast cancer, on treatment with Herceptin and Perjeta. Patient has been off her treatment for the last few months because of right hip replacement complicated with infection, and she was off treatment nearly since March 2018. She is complaining currently of cough with expectoration, incontinence of urine, and pain in her left leg. Other than that, she is really doing very well. PAST MEDICAL HISTORY 1. Breast cancer. 2. Hypertension. 3. Hyperlipidemia. PAST SURGICAL HISTORY 1. Ectopic surgery. 2. Right hip replacement on November 12, 2017. SOCIAL HISTORY Patient is a former smoker. She never used smokeless tobacco. She is a with two sons. She is a retired teacher. No abuse of tobacco, alcohol, or illicit drugs. FAMILY HISTORY Paternal aunt with lymphoma in 50s. CURRENT MEDICATIONS 1. Vitamin D3 1000 units daily. 2. Polyethylene glycol 3350 powder, 17 g powder packet daily, 8 g. 3. Hydrochlorothiazide 12.5 mg daily. 4. Docusate sodium 100 mg capsule twice daily. 5. Bisacodyl suppository 10 mg rectally daily as needed for constipation. 6. Tylenol 500 mg two tablets three times daily. 7. Mirapex 0.75 mg at bedtime. 8. Morphine sulfate extended release 30 mg twice daily. 9. Folic acid 1 mg daily. 10. Carbidopa/levodopa. 11. Sinemet 25/100 three times daily. ALLERGIES 1. AMANTADINE ANALOGS, patient passes out with that. 2. ARICEPT, nausea and vomiting. 3. SULFA, skin rash. REVIEW OF SYSTEMS CONSTITUTIONAL: No appetite or weight change. No fever, chills, or sweating. No recent infection. HEENT: Ears: No tinnitus or hearing problem. Nose: No nasal discharge or epistaxis. Throat: No sore throat or mouth ulcers. Eyes: No diplopia or visual changes. RESPIRATORY: No shortness of breath. She has cough with expectoration. No hemoptysis. CARDIOVASCULAR: No chest pain, orthopnea, or paroxysmal nocturnal dyspnea (PND). No edema. No palpitations. GASTROINTESTINAL: No nausea or vomiting. No diarrhea or constipation. No change in bowel movements. No heartburn or swallowing difficulties. No abdominal pain. No jaundice. No hematemesis, melena, or rectal bleeding. GENITOURINARY: She has urinary incontinence. MUSCULOSKELETAL: She has pain in her left leg. NEUROLOGICAL: No tingling or numbness in the hands or feet. No headaches or convulsions. HEMATOLOGIC/LYMPHATIC: No bleeding or easy bruising. No weakness or fatigue. No enlarged lymph nodes. SKIN: No skin rash or lumps. PSYCHIATRIC: No anxiety or depression. PHYSICAL EXAMINATION GENERAL: Looks stable. Well developed, well nourished, and in no acute distress. VITAL SIGNS: Blood pressure 108/54, pulse 83 per minute, respirations 16 per minute, temperature 98, pulse ox 90% on room air. HEENT: Head: Atraumatic. No sinus tenderness to palpation. Eyes: No icterus or conjunctivitis. Mouth and throat: No oral thrush or mucositis. NECK: Supple. No cervical or supraclavicular lymphadenopathy. LUNGS: Clear to auscultation and percussion bilaterally. HEART: Regular rate and rhythm. No gallops, murmurs, clicks, or rubs. ABDOMEN: Soft and lax. No tenderness. No hepatosplenomegaly. No masses. EXTREMITIES: No cyanosis, clubbing, or edema. LYMPHATICS: No peripheral lymphadenopathy. NEUROLOGICAL: Conscious, alert, and oriented times three. No focal motor or sensory deficits. PSYCHIATRIC: Mood and affect appear normal. SKIN: No skin rash, bruise, or purpuric eruption. DIAGNOSTIC DATA CBC showed white count 6.9, hemoglobin 10.8, hematocrit 33.6, platelets 384. MCV was 77.9. ESR was 75. The rest of her blood work is pending. ASSESSMENT Stage IV metastatic breast cancer with diffuse bony metastatic disease diagnosed October 2016, and patient started treatment with Herceptin and Perjeta December 2017 with achievement of excellent response. She was off her treatment for a long period of time after her right hip replacement, complicated with infection. I am planning to resume her treatment today with Herceptin and Perjeta. I will check her tumor markers with CA27.29, CA15-3, and CEA. I will see her again in three weeks from now prior to the next dose of Herceptin and Perjeta with the same lab with CBC, chemistry panel, CEA, CA27.29, and CA15-3. PLAN 1. Herceptin and Perjeta today. 2. Xgeva 120 mg subcutaneously every four weeks. 3. Patient to return in three weeks with CBC, chem panel, CA27.29, CA15-3, and CEA. 4. Patient to contact us for any new concerns or complaints. ADDENDUM ([id number]) Patient was complaining of left parotid area swelling. She had facial bone CT scan done on the July, and the CT scan showed a large and slightly hyperdense left parotid gland with surrounding fat stranding suspicious for tumor or parotiditis. I am planning to refer the patient to Dr. Jim Calix, our ENT here in the area, to biopsy that enlarged parotid gland. Further evaluation and management will depend on the result of the pathology from the left parotid gland mass. MTDD
--- NOTE | 2018-07-22 18:22 | EL-TARABILY ONCOLOGY NOTE ---
EVENT DATE: July 22, 2018 ADDENDUM Patient was complaining of left parotid area swelling. She had facial bone CT scan done on the July, and the CT scan showed a large and slightly hyperdense left parotid gland with surrounding fat stranding suspicious for tumor or parotiditis. I am planning to refer the patient to Dr. Jim Calix, our ENT here in the area, to biopsy that enlarged parotid gland. Further evaluation and management will depend on the result of the pathology from the left parotid gland mass. MTDD
[2018-08-09 14:11] VITALS: Ht 149.9 cm; Wt 56.6 kg
[2018-09-02 13:09] VITALS: BP 92/63
[2018-09-02] MEDS: LIDOCAINE/SOD BICARB 8.4% SYR ID PRN (13:30)
[2018-09-02] MEDS: NS(*) 0.9% 100 ML BAG 100 ML IVPB PRN (13:31)
[2018-09-02 13:35] LABS: PLATELET COUNT, AUTOMATED 351 K/uL (150-450)
[2018-09-02] MEDS: diphenhydrAMINE 25 MG CAP PO PRN (14:33)
[2018-09-02] MEDS: ACETAMINOPHEN 325 MG TAB PO PRN (14:33)
[2018-09-02 16:39] VITALS: BP 129/69
--- NOTE | 2018-09-03 05:55 | ONCOLOGY FOLLOW UP NOTE ---
EVENT DATE: September 02, 2018 DIAGNOSIS Metastatic breast cancer. CHIEF COMPLAINT Patient is here today for ongoing followup for her metastatic breast cancer, currently on treatment with Herceptin and Perjeta. ONCOLOGY HISTORY Patient is a 77-year-old female who was diagnosed with metastatic breast cancer in October 2016, and her tumor was poorly differentiated invasive ductal carcinoma with diffuse bony metastasis, ER/DC negative, and HER2/maricarmen positive. Patient started treatment with Herceptin and Perjeta in December 2016 after recommendation by [facility]. She achieved a very good response with her treatment with normalization of her tumor markers. She developed a fracture, and the patient had right hip replacement on November 12, 2017, and was admitted in a rehab center in [place]. So, the patient resumed her treatment there with Herceptin and Perjeta on December 09, 2017. Patient returned back to [place], and she is currently admitted to a half-way. HISTORY OF PRESENT ILLNESS Patient is here today for followup of her metastatic breast cancer, on treatment with Herceptin and Perjeta. Patient has been off her treatment for the last few months because of right hip replacement complicated with infection, and she was off treatment nearly since March 2018. She recently followed up with her PCP, Dr. Aparicio, and we were notified that patient wanted to continue treatment. She then returned and had one cycle of Herceptin and Perjeta three weeks ago. She is here today for her next cycle. She reports feeling well other than occasional cough with expectoration, urinary incontinence, and some left leg pain. She continues on treatment for her Parkinson disease. Other than that, she reports feeling well. She does report some psychosocial stressors, and according to the patient, she has a new medical ylnun-mv-qqffjatd, her brother Gene. She states that previously, her medical nvffg-mq-aawarand was her tbbilpkg-mz-bmu. She is having some difficulties in communicating with some of her family members, and per patient's account, she was taken off treatment largely because her exclkwcw-jp-prv (medical daory-jk-kytbisdt at that time) did not want her on treatment. The patient verbalizes to me that she did not know she was off treatment for so long, and believes that they did this due to her metastatic disease. Patient believes that her family members felt that it was inevitable that she would pass, and if they took her off treatment, they would be able to collect finances on her estate. Again, this is per the patient's report. She does tell me that she now has her brother Gene legally assigned as her medical yutly-oi-yqywetix. We do not have records of this as of today, though we are trying to obtain this. She still resides in [facility]. PAST MEDICAL HISTORY 1. Breast cancer. 2. Hypertension. 3. Hyperlipidemia. PAST SURGICAL HISTORY 1. Ectopic surgery. 2. Right hip replacement on November 12, 2017. SOCIAL HISTORY Patient is a former smoker. She never used smokeless tobacco. She is a with two sons. She is a retired teacher. No abuse of tobacco, alcohol, or illicit drugs. FAMILY HISTORY Paternal aunt with lymphoma in 50s. CURRENT MEDICATIONS 1. Vitamin D3 1000 units daily. 2. Polyethylene glycol 3350 powder, 17 g powder packet daily, 8 g. 3. Hydrochlorothiazide 12.5 mg daily. 4. Docusate sodium 100 mg capsule twice daily. 5. Bisacodyl suppository 10 mg rectally daily as needed for constipation. 6. Tylenol 500 mg two tablets three times daily. 7. Mirapex 0.75 mg at bedtime. 8. Morphine sulfate extended release 30 mg twice daily. 9. Folic acid 1 mg daily. 10. Carbidopa/levodopa. 11. Sinemet 25/100 three times daily. ALLERGIES 1. AMANTADINE ANALOGS, patient passes out with that. 2. ARICEPT, nausea and vomiting. 3. SULFA, skin rash. REVIEW OF SYSTEMS CONSTITUTIONAL: Patient denies any recent fevers, chills, or night sweats. No recent infections. She does not believe that she has had any appetite or weight changes. HEENT: No tinnitus. No vision changes. No epistaxis. No mouth sores. No dysphagia or odynophagia. RESPIRATORY: She has an occasional cough with sputum production. No hemoptysis. No pleuritic chest pain. She has occasional dyspnea on exertion, but no shortness of breath. CARDIOVASCULAR: No chest pain. No syncope or presyncope. GI: No abdominal pain, nausea, vomiting, or constipation. She believes she may have had a couple of episodes of loose stool after her last cycle, but tells me this was not really diarrhea and was quite manageable. No bright red blood per rectum or melena. Appetite is stable. : She has a history of urinary incontinence. No dysuria. No hematuria. No genitourinary discharge. MUSCULOSKELETAL: She has some areas of pain in the left leg, unchanged. She has a tremor. NEURO: Patient has a tremor related to Parkinson disease. She denies any numbness or tingling in the hands or feet. No headaches or seizure-like activity. SKIN: She reports occasional red areas, which she says her half-way reports is a rash, though this is non-pruritic and tends to wax and wane. No new suspicious lumps or bumps. PSYCH: She denies any severe anxiety, severe depression, suicidal or homicidal ideation. PHYSICAL EXAMINATION VITAL SIGNS: T 98.5, P 76, R 16, BP 92/63, oxygen saturation 91% on room air. Currently rates the pain level at 5/10 (ankle). GENERAL: In general, this is a pleasant elderly 77-year-old woman who appears stable and overall is well nourished and in no acute distress. HEAD: Atraumatic. Normocephalic. EYES: Sclerae anicteric. ENT/MOUTH: Moist mucous membranes. No mucositis. NECK: Supple. No lymphadenopathy. LUNGS: Clear breath sounds to auscultation bilaterally. No focal findings. HEART: Regular rate and rhythm. No ectopy. ABDOMEN: Soft, nontender, nondistended. No organomegaly. Bowel sounds positive x4. EXTREMITIES: No edema. No clubbing or cyanosis. NEURO: Patient is awake, alert, oriented x3. She does have a history of Parkinson's and has tremor most noticeable to the left upper extremity and left lower extremity at times. Otherwise, no obvious focal motor or sensory deficits. PSYCH: Mood and affect are appropriate. DERM: No significant rash, bruises or petechiae. LABORATORY CBC today: WBC 6.4, ANC 5.0, hemoglobin 11.6, hematocrit 35.7%, platelets 351,000. CMP today: Largely unremarkable. Tumor markers to include CEA and CA27-29 are currently pending. PATHOLOGY Left parotid gland fine needle aspiration on 08/04/18: (1) Adequate for evaluation. (2) Rare atypical cells present, highly suspicious for malignancy. (3) See comment. Comment: Features are essentially similar to those in the FNA from 07/23/18. Unfortunately, the cell block of this current specimen is acellular, and no immunostains can be performed, precluding definitive classification of this lesion. Additional sampling is needed. IMAGING Chest x-ray at [facility] on 08/08/18: Lateral view is suggestive of a retrocardiac left lower lobe infiltrate with likely a small effusion. IMPRESSION AND PLAN This is a 77-year-old female with stage IV metastatic breast cancer with diffuse bony metastatic disease diagnosed October 2016, and patient started treatment with Herceptin and Perjeta December 2017 with achievement of excellent response. She was off her treatment for a long period of time after her right hip replacement, complicated with infection. We plan to resume her treatment, and she just recently restarted treatment a few weeks ago with Herceptin and Perjeta. At the time of her last visit on 07/22/18, she reported some left parotid area swelling. A facial bone CT was done on 07/16/18, and CT scan showed a large and slightly hyperdense left parotid gland with surrounding fat stranding suspicious for tumor or parotitis. She was since referred to Dr. Jim Calix, our ENT here, for biopsy of the enlarged parotid gland. Patient apparently underwent three FNAs to the left parotid gland, and each time, specimen was acellular but was highly suspicious for malignancy. Dr. Bay and I reviewed this pathology last week in clinic. We do not feel that she needs any repeat FNAs, as she has had several done, and at this point we are treating the parotid mass as metastasis from her known breast cancer. She is also on Xgeva every four weeks. 1. Patient will proceed with Herceptin and Perjeta today. We had a long discussion regarding her wish to proceed with treatment. Please see above for details. 2. We will continue with Xgeva 120 mg subcu every four weeks. 3. Appropriate labs are pending today, to include tumor markers. CBC is in great range today. 4. Left parotid metastasis. As per above, we are treating this as metastatic disease, as several fine needle aspirations were suspicious for malignancy, though immunostains were unable to be performed. I have explained this to the patient at length today. Discussed that our wish would be to change treatment over to Kadcyla. Discussed with patient that our medical oncologist (Dr. Kamaljit Eric) and I discussed this, and he is in agreement with this plan. Patient tells me that she wishes to proceed with Kadcyla. 5. Patient will return to clinic in three weeks, and at that point, we should be starting new treatment with Kadcyla, Cycle #1. 6. We had a chemotherapy teaching session today and discussed potential side effects and common side effects and risks. She is provided with printed educational material. CHEMOTHERAPY TEACHING SESSION 1. A total of 60 minutes was spent in counseling today, 100% of which was face to face. At today's chemotherapy teaching session, we discussed her diagnosis as well as the planned chemotherapy regimen and toxicities associated with Kadcyla IV every three weeks. Handouts of the drug were provided and reviewed in detail. 2. Side effects and toxicities of chemotherapy agents included, but were not limited to: A. Bone marrow suppression, specifically neutropenia. She is instructed to contact our offices with any signs of infection. CBC will be monitored routinely. We discussed common sense approaches including routine hand washing and avoidance of crowds/sick people if neutropenic. B. GI side effects. Discussed the possibility of nausea, vomiting, diarrhea and constipation. She will receive IV antiemetics and will be prescribed antiemetics for home use. If she were to have diarrhea, recommended Imodium. If she were to have constipation, recommended Senna-S or Miralax routinely. Further interventions will be made based on side effects. C. side effects. Discussed the importance of adequate hydration (minimum 8 cups of fluid per day) and emptying the bladder on a regular basis. IV hydration can be scheduled as needed. D. Mouth sores. Recommended salt water or baking soda gargles as needed. E. Skin toxicity. Discussed that chemotherapy was very drying to the skin and mucous membranes. Recommended routine moisturizing as well as sun protection. F. Neurotoxicity. Discussed symptoms of peripheral neuropathy. She will be monitored for these symptoms and will notify us if progressive. G. Alopecia. Prescription is written for cranial prosthesis. A list of local wig shops is given. H. Fatigue. Discussed that this is one of the most common complaints of patients undergoing chemotherapy. I have encouraged her to remain as active as possible, taking frequent rests as needed. I. Infusion reaction. Reviewed IV premedications. She will be monitored closely during infusions. J. Reproductive Health: Discussed importance of preventing while on chemotherapy. Discussed control options and fertility preservation. Also, to abstain from sexual intercourse for 2-3 days after chemotherapy administration. 3. I have instructed the patient to call our office if she is prescribed any new medications. It is recommended that multiple supplements or herbal medications may not be taken as these may interfere with the action of the chemotherapy. 4. Discussed dietary issues associated with chemotherapy including anorexia and changes in taste. A handout of nutrition information is given. 5. Office contact information ([phone]) is given. I have encouraged the patient to call with any issues regarding treatment. 6. A tour of the infusion room is given. She is given a packet of information including all of the above. MTDD
[~2018-09-30] VITALS: Ht 149.9 cm; Wt 56.6 kg
[~2018-09-30 09:00] MED LIST changes: +ALB18R INH; +ALTEPLASE RECOMB 2 MG VIAL IVP PRN; +AMLO-125 PO; +AMLO-127 PO; +AZIT-18 PO; +CYA1000 PO; +DEXTROSE 5%(*) 100 ML BAG 100 ML IVPB PRN; +DICL100G7 TP; +HEPARIN FLSH (PORT) 500 UN/5ML IVP PRN; +MIRA25TA PO; +NS 0.9% IVPB ONE; +NS(*) 0.9% 500 ML BAG 500 ML IV PRN; +PERTUZUMAB IVPB ONE; +POLY17PO25 PO; +PRAM1.5T5 PO; +TRASTUZUMAB IVPB ONE; +WATER FOR INJ,STERILE 20 ML IVP PRN; +[UNRECOGNIZED DRUG - CODE] TD
[2018-09-30 09:33] VITALS: BP 117/88
[2018-09-30] MEDS ORDERED: ADO TRASTUZUMAB EMTANSINE IV ONE (10:45)
[2018-09-30] MEDS ORDERED: NS 0.9% IV ONE (10:45)
[2018-09-30] MEDS: LIDOCAINE/SOD BICARB 8.4% SYR ID PRN (10:47)
[2018-09-30] MEDS ORDERED: NS(*) 0.9% 250 ML BAG 250 ML IVPB PRN (10:55)
--- NOTE | 2018-09-30 15:45 | ONCOLOGY FOLLOW UP NOTE ---
EVENT DATE: September 30, 2018 DIAGNOSIS Metastatic breast cancer. CHIEF COMPLAINT Patient is here today for ongoing followup for her metastatic breast cancer. Patient will be due to initiate Cycle #1 with Kadcyla today. ONCOLOGY HISTORY Patient is a 77-year-old female who was diagnosed with metastatic breast cancer in October 2016, and her tumor was poorly differentiated invasive ductal carcinoma with diffuse bony metastasis, ER/ME negative, and HER2/maricarmen positive. Patient started treatment with Herceptin and Perjeta in December 2016 after recommendation by [facility]. She achieved a very good response with her treatment with normalization of her tumor markers. She developed a fracture, and the patient had right hip replacement on November 12, 2017, and was admitted in a rehab center in [place]. So, the patient resumed her treatment there with Herceptin and Perjeta on December 09, 2017. Patient returned back to [place], and she is currently admitted to a mcc. Patient had a fine needle aspiration on several occasions to the left parotid gland starting on 08/04/18. Results revealed high suspicion for malignancy though, unfortunately, several aspirations were done, and there was not enough tissue for immunostaining. We are presuming that this is metastasis of her breast cancer. As such, patient will be discontinuing Herceptin and Perjeta with last dose given on 09/02/18. She will be starting Kadcyla Cycle #1 on 09/30/18. HISTORY OF PRESENT ILLNESS Patient is here today for followup of her metastatic breast cancer, mostly recently on treatment with Herceptin and Perjeta. Patient was off treatment for the last few months because of right hip replacement, complicated with infection, and she was off treatment nearly since March 2018. She recently followed up with her PCP, Dr. Aparicio, and we were notified that the patient wanted to continue treatment. She then returned, received a couple of cycles of Herceptin and Perjeta. Her last cycle of Herceptin and Perjeta was given on 09/02/18. She will be initiating Kadcyla today due to recent disease progression evidenced by left parotid gland FNA results. She is a week delayed due to authorization. She has an occasional cough with expectoration and severe urinary incontinence as well as some left leg pain. She continues on treatment for her Parkinson disease. She recently saw Dr. Aparicio and [place]. She reports otherwise feeling well. Today, she walked in using her walker only and in the past has been in wheelchair. She reports some memory difficulty and admits to barely remembering our last visit. She tells me that she believes that she was on pain medication at that time, which may have been altering her memory. She tells me she was taken of morphine and is now on oxycodone. She tells me that she believes her Parkinson disease is also worsening, and her medications may have recently been adjusted. She has had some psychosocial stressors, and apparently, her brother, Kelton, is now her new medical power of erisa attorney. There were some issues there as far as prior medical power of erisa attorney ([id number]) stopping treatment against patient's will. [place] still resides [place]. She denies any recent fevers or infections. PAST MEDICAL HISTORY 1. Breast cancer. 2. Hypertension. 3. Hyperlipidemia. PAST SURGICAL HISTORY 1. Ectopic surgery. 2. Right hip replacement on November 12, 2017. SOCIAL HISTORY Patient is a former smoker. She never used smokeless tobacco. She is a with two sons. She is a retired teacher. No abuse of tobacco, alcohol, or illicit drugs. FAMILY HISTORY Paternal aunt with lymphoma in 50s. CURRENT MEDICATIONS 1. Vitamin D3 1000 units daily. 2. Polyethylene glycol 3350 powder, 17 g powder packet daily, 8 g. 3. Hydrochlorothiazide 12.5 mg daily. 4. Docusate sodium 100 mg capsule twice daily. 5. Bisacodyl suppository 10 mg rectally daily as needed for constipation. 6. Tylenol 500 mg two tablets three times daily. 7. Mirapex 0.75 mg at bedtime. 8. Morphine sulfate extended release 30 mg twice daily. 9. Folic acid 1 mg daily. 10. Carbidopa/levodopa. 11. Sinemet 25/100 three times daily. ALLERGIES 1. AMANTADINE ANALOGS, patient passes out with that. 2. ARICEPT, nausea and vomiting. 3. SULFA, skin rash. REVIEW OF SYSTEMS CONSTITUTIONAL: Patient denies any recent fevers, chills, or night sweats. No recent infections. She does not believe that she has had any appetite or weight changes. HEENT: No tinnitus. No vision changes. No epistaxis. No mouth sores. No dysphagia or odynophagia. RESPIRATORY: She has an occasional cough with sputum production. No hemoptysis. No pleuritic chest pain. She has occasional dyspnea on exertion, but no shortness of breath. CARDIOVASCULAR: No chest pain. No syncope or presyncope. GASTROINTESTINAL: No abdominal pain, nausea, vomiting, constipation, diarrhea, bright red blood per rectum, or melena. Appetite is stable. GENITOURINARY: She has a history of urinary incontinence. No dysuria. No hematuria. No genitourinary discharge. MUSCULOSKELETAL: She has some areas of pain in the left leg, unchanged. She has a tremor. She has some weakness related to her Parkinson's and uses either a wheelchair or walker. NEUROLOGIC: Patient has a tremor related to Parkinson disease. Patient believes that her Parkinson's is worsening. She denies any numbness or tingling in the hands or feet. No headaches or seizure-like activity. SKIN: She reports occasional red areas, which she says her mcc reports is a rash, though this is nonpruritic and tends to wax and wane. No new suspicious lumps or bumps. PSYCHIATRIC: She denies any severe anxiety, severe depression, suicidal or homicidal ideation. PHYSICAL EXAMINATION VITAL SIGNS: T 98.4, P 88, R 16, BP 117/88, oxygen saturation 89% room air. GENERAL: In general, this is a pleasant elderly 77-year-old woman who appears stable and overall is well nourished and in no acute distress. HEAD: Atraumatic. Normocephalic. EYES: Sclerae anicteric. ENT, MOUTH: Moist mucous membranes. No mucositis. NECK: Supple. No lymphadenopathy. LUNGS: Clear breath sounds to auscultation bilaterally. No focal findings. HEART: Regular rate and rhythm. No ectopy. ABDOMEN: Soft, nontender, nondistended. No organomegaly. Bowel sounds positive x4. EXTREMITIES: No edema. No clubbing or cyanosis. NEUROLOGIC: Patient is awake, alert, oriented x3. She does have a history of Parkinson's and has tremor most noticeable to the left upper extremity and left lower extremity at times. Patient also has some mild tremor or twitching in the right upper extremity. PSYCHIATRIC: Mood and affect are appropriate. DERM: No significant rash, bruises or petechiae. LABORATORY CBC today: WBC 6.1, ANC 4.6, hemoglobin 12.0, hematocrit 37.0%, platelets 369,000. CMP today: Unremarkable with the exception of mildly elevated BUN at 23 with normal serum creatinine of 0.70. Total protein normal, 7.7, with albumin normal, 4.2. Tumor markers are currently pending to include CEA, CA27.29, and TSH. IMAGING Chest x-ray at [facility] on 08/08/18: Lateral view is suggestive of a retrocardiac left lower lobe infiltrate with likely a small effusion. IMPRESSION AND PLAN This is a 77-year-old female with stage IV metastatic breast cancer with diffuse bony metastatic disease diagnosed October 2016, and patient started treatment with Herceptin and Perjeta December 2017 with achievement of excellent response. She was off her treatment for a long period of time after her right hip replacement, complicated with infection. We plan to resume her treatment, and she just recently restarted treatment a few weeks ago with Herceptin and Perjeta. At the time of her last visit on 07/22/18, she reported some left parotid area swelling. A facial bone CT was done on 07/16/18, and CT scan showed a large and slightly hyperdense left parotid gland with surrounding fat stranding suspicious for tumor or parotitis. She was since referred to Dr. Jim Calix, our ENT here, for biopsy of the enlarged parotid gland. Patient apparently underwent three fine needle aspirations to the left parotid gland, and each time the specimen was acellular, but was highly suspicious for malignancy. Dr. Kamaljit Eric and I have reviewed her case. We don't feel that repeat FNA is warranted. At this point we are treating the left parotid mass as metastasis from her known breast cancer. She is also on Xgeva every four weeks. I reminded patient of our plan for Kadcyla, again asked for consent, and patient stated that she wishes to agree. Official consent was signed by patient today. We again discussed potential side effects related to Kadcyla. We did have a formal chemotherapy education session at our last visit. 1. Patient will initiate Kadcyla Cycle #1 today. Appropriate labs will be checked per orders, to include CEA, CA27.29, and TSH, as well as today's CBC and CMP. 2. Herceptin and Perjeta have been discontinued with last dose given on 09/02/18. 3. Patient will continue with Xgeva 120 mg subcutaneously every four weeks. 4. Imaging: I reminded patient again today that she will still require echocardiograms every three months. She is overdue for repeat echocardiogram given that she was off treatment for several months. I have written orders today for patient to have echocardiogram done prior to her next visit. 5. Patient will return to clinic in three weeks for repeat labs, followup with MD, and to initiate Cycle #2 with Kadcyla. She should have had her echocardiogram within that time frame. RAYMONDD
[2018-10-01] MEDS ORDERED: CARB-127 PO (14:26)
== END 2018-10-19 ==
LOC: ONC 09:00
PROVIDERS: ATTEND Internal Medicine Hematology
DX: Z51.11 Encounter for antineoplastic chemotherapy (principal); C50.919 Malignant neoplasm of unspecified site of unspecified female breast; Z17.1 Estrogen receptor negative status [ER-]; C79.51 Secondary malignant neoplasm of bone; R53.83 Other fatigue; Z87.891 Personal history of nicotine dependence; Z79.899 Other long term (current) drug therapy; K59.00 Constipation, unspecified
CPT/HCPCS: 82378; 84443; 85025; 85027; 86300; 96413; A9270; C8924; G0463; J7050; J9306; J9354; J9355; Q0163; 82040; 82247; 82310; 82374; 82435; 82565; 82947; 84075; 84132; 84155; 84295; 84450; 84460; 84520; 96415; 96417; 99212